=== PATIENT | male | born 1985 | race Caucasian/White ===

== ENCOUNTER 2020-10-27 09:12 | Outpatient (CLI) | payer OTHER, SELFPAY | END 2020-10-27 09:13 | disposition home or self-care (01) | LOC: ANHBWCAUD 09:13 | DX: H90.3 Sensorineural hearing loss, bilateral (principal) | CPT/HCPCS: 92557; 92567 ==

== ENCOUNTER 2024-05-13 09:04 | Outpatient (CLI) | payer MEDICAID, SELFPAY ==
--- OUTSIDE RECORDS SUMMARY | 2024-05-14 22:13 | XMS_ITS | Encounter Summary ---
Author Organization [facility] Address [address] [place] [address] Phone Care Team Providers Care Sleeve Presser Operator Name Role Phone Felisha Yu MD Primary Care Provider [phone] Jose Allan MD Primary Care Provider [phone] Provider, None Primary Care Provider Unavailabl e Encounter Details Date Type Department Care Team (Late st Contact Info) Description 02/21/2022 Lab Requisition [facility] Laboratory Services 1 [place] [address] Medhat Briggs MD [address] [place] [address] [address] [place] [address] Encounter for screening for COVID-19 Social History Tobacco Use Types Packs/Day Years Used Date Smoking Tobacco: Never Smokeless Tobacco: Never Alcohol Use Standard Drinks/Week Comments No 0 (1 standard drink = 0.6 oz pur e alcohol) Sex and Gender Information Value Date Recorded Sex Assigned at Not on file Legal Sex Male 9:44 AM CDT Gender Identity Not on file Sexual Orientation Not on file Occupation Industry Job Start Date Job End Date disability Not on file Not on file Not on file documented as of this encounter Plan of Treatment Not on file documented as of this encounter Procedures Procedure Name Priority Date/Time Associated Diagnosis Comments SARS-COV-2 BY MOLECULAR Routine 02/21/2022 8:05 AM CDT Encounter for screening for COVID-19 documented in this encounter Results * SARS-COV-2 BY MOLECULAR (02/21/2022 8:05 AM CDT) SARSCOV2 NOT DETECTED (Referen ce Range for this test is Not Detected ) [facility] THERMOFISHER FAST DX 02/22/2022 12:00 AM CDT [facility] Comment:This test was perfor med by a RT-PCR method. Other Non-Phlebotomy Collection / Unknown 02/21/2022 8:05 AM CDT 02/21/2022 11:00 AM CDT Narrative [facility] - 02/22/2022 12:00 AM CDT Authorized Fact Sheets about this test for providers and patients are available at: https://www.fda.gov/medical-devices/dlnvnxlxs-tnfebjgigi-zspiwss-devices/emergen -us e-authorizations us Medhat Briggs MD MICROBIOLOGY - GENERAL ORDERAB LES Final Result [facility] [address] [place] [address], documented in this encounter Visit Diagnoses Diagnosis Encounter for screening for COVID-19 documented in this encounter Additional Health Concerns Infection Onset Date Last Indicated Resolved Time COVID - 19 11/01/2021 02/28/2022 03/10/2022 12:1 6 AM GETTER FILLER COVID - 19 04/25/2022 07/04/2022 07/14/2022 12:1 6 AM CDT documented as of this encounter Care Teams Sleeve Presser Operator Relationship Specialty Start Date End Date Felisha Yu MD PCP - General Family Medicine 07/20/15 04/21/22 Jose Allan MD PCP - General Family Medicine 04/22/22 07/14/23 Provider, None [place] PCP - General 03/08/24 documented as of this encounter
--- OUTSIDE RECORDS SUMMARY | 2024-05-14 22:13 | XMS_ITS | Encounter Summary ---
Author Organization [facility] Address [address] [place] [address] Phone Care Team Providers Care Medical Billing Service Name Role Phone Jose Allan MD Primary Care Provider [phone] Provider, None Primary Care Provider Unavailabl e Encounter Details Date Type Department Care Team (Late st Contact Info) Description 05/17/2022 Lab Requisition [facility] Laboratory Services 1 [place] [address] Medhat Briggs MD [address] [place] [address] [facility] [address] [place] [address] Encounter for screening for COVID-19 Social History [...] Associated Diagnosis Comments SARS-COV-2 BY MOLECULAR Routine 05/17/2022 8:05 AM CULTURIST Encounter for screening for COVID-19 documented in this encounter Results * SARS-COV-2 BY MOLECULAR (05/17/2022 8:05 AM CULTURIST) SARSCOV2 NOT DETECTED (Referen ce Range for this test is Not Detected ) [facility] THERMOFISHER FAST DX 05/17/2022 5:12 PM CULTURIST [facility] Comment:This test was perfor med by a RT-PCR method. Other Non-Phlebotomy Collection / Unknown 05/17/2022 8:05 AM CULTURIST 05/17/2022 9:50 AM CULTURIST Narrative [facility] - 05/17/2022 5:12 PM CULTURIST Authorized Fact Sheets about this test for providers and patients are available at: https://www.fda.gov/medical-devices/hfwiiidra-cwnamzfgke-ulyhhek-devices/emergen -us e-authorizations us Medhat Briggs MD MICROBIOLOGY - GENERAL ORDERAB LES Final Result [facility] [address] [place] [address], documented in this encounter Visit Diagnoses Diagnosis Encounter for screening for COVID-19 documented in this encounter Additional Health Concerns Infection Onset Date Last Indicated Resolved Time COVID - 19 04/25/2022 07/04/2022 07/14/2022 12:1 6 AM CDT documented as of this encounter Care Teams Medical Billing Service Relationship Specialty Start Date End Date Jose Allan MD PCP - General Family Medicine 04/22/22 07/14/23 Provider, None [place] PCP - General 03/08/24 documented as of this encounter
--- OUTSIDE RECORDS SUMMARY | 2024-05-14 22:13 | XMS_ITS | Encounter Summary ---
Author Organization [facility] Address [address] [place] [address] Phone Care Team Providers Care Supply Chain Associate Name Role Phone Jose Allan MD Primary Care Provider [phone] Provider, None Primary Care Provider Unavailabl e Encounter Details Date Type Department Care Team (Late st Contact Info) Description 05/02/2022 Lab Requisition [facility] Laboratory Services 1 [place] [address] Medhat Briggs MD [address] [place] [address] [facility] [address] [place] [address] Encounter for screening for COVID-19 Social History [...] Associated Diagnosis Comments SARS-COV-2 BY MOLECULAR Routine 05/02/2022 7:43 AM SUGAR BOILER Encounter for screening for COVID-19 documented in this encounter Results * SARS-COV-2 BY MOLECULAR (05/02/2022 7:43 AM SUGAR BOILER) SARSCOV2 NOT DETECTED (Referen ce Range for this test is Not Detected ) [facility] THERMOFISHER FAST DX 05/02/2022 10:53 PM SUGAR BOILER [facility] Comment:This test was perfor med by a RT-PCR method. Other Non-Phlebotomy Collection / Unknown 05/02/2022 7:43 AM SUGAR BOILER 05/02/2022 10:31 AM SUGAR BOILER Narrative [facility] - 05/02/2022 10:53 PM SUGAR BOILER Authorized Fact Sheets about this test for providers and patients are available at: https://www.fda.gov/medical-devices/ytihkihci-tkthcdqyep-wnatpfv-devices/emergen -us e-authorizations us Medhat Briggs MD MICROBIOLOGY - GENERAL ORDERAB LES Final Result [facility] [address] [place] [address], documented in this encounter Visit Diagnoses Diagnosis Encounter for screening for COVID-19 documented in this encounter Additional Health Concerns Infection Onset Date Last Indicated Resolved Time COVID - 19 04/25/2022 07/04/2022 07/14/2022 12:1 6 AM CDT documented as of this encounter Care Teams Supply Chain Associate Relationship Specialty Start Date End Date Jose Allan MD PCP - General Family Medicine 04/22/22 07/14/23 Provider, None [place] PCP - General 03/08/24 documented as of this encounter
--- OUTSIDE RECORDS SUMMARY | 2024-05-14 22:13 | XMS_ITS | Encounter Summary ---
Author Organization [facility] Address [address] [place] [address] Phone Care Team Providers Care Microfilm Operator Name Role Phone Provider, None Primary Care Provider Unavailabl e Encounter Details Date Type Department Care Team (Late st Contact Info) Description 02/05/2024 Lab Requisition [facility] Laboratory Services 1 [place] [id number] Eli Moon MD [address] [place] [address] Other group home (current) drug therapy; Hypothyroidism, unspecified Social History Tobacco Use Types Packs/Day Years [...] as of this encounter Plan of Treatment Scheduled Orders Name Type Priority Associated Diagnoses Orde r Schedule THYROID STIMULATING HORMONE (TSH) Lab Routine Other group home (current) drug therapy Hypothyroidism, unspecified Ordered: 02/05/2024 VALPROIC ACID (DEPAKENE) Lab Routine Other extermination supervisor (current) drug therapy Hypothyroidism, unspecified Ordered: 02/05/2024 documented as of this encounter Visit Diagnoses Diagnosis Other extermination supervisor (current) drug therapy Hypothyroidism, unspecified documented in this encounter Care Teams Microfilm Operator Relationship Specialty Start Date End Date Provider, None [place] PCP - General 03/08/24 documented as of this encounter
--- OUTSIDE RECORDS SUMMARY | 2024-05-14 22:13 | XMS_ITS | Encounter Summary ---
Author Organization [facility] Address [address] [place] [address] Phone Care Team Providers Care Lyric Writer Name Role Phone Jose Allan MD Primary Care Provider [phone] Provider, None Primary Care Provider Unavailabl e Encounter Details Date Type Department Care Team (Late st Contact Info) Description 06/27/2022 Lab Requisition [facility] Laboratory Services 1 [place] [address] Medhat Briggs MD [address] [place] [address] [facility] [address] [place] [address] Encounter for screening for COVID-19 Social History [...] Associated Diagnosis Comments SARS-COV-2 BY MOLECULAR Routine 06/27/2022 7:35 AM DIETITIAN TEACHING Encounter for screening for COVID-19 documented in this encounter Results * SARS-COV-2 BY MOLECULAR (06/27/2022 7:35 AM DIETITIAN TEACHING) SARSCOV2 NOT DETECTED (Referen ce Range for this test is Not Detected ) [facility] THERMOFISHER FAST DX 06/27/2022 7:37 PM DIETITIAN TEACHING [facility] Comment:This test was perfor med by a RT-PCR method. Other Non-Phlebotomy Collection / Unknown 06/27/2022 7:35 AM DIETITIAN TEACHING 06/27/2022 10:12 AM DIETITIAN TEACHING Narrative [facility] - 06/27/2022 7:37 PM DIETITIAN TEACHING Authorized Fact Sheets about this test for providers and patients are available at: https://www.fda.gov/medical-devices/emfvedova-jycmpofban-icrwdnm-devices/emergen -us e-authorizations us Medhat Briggs MD MICROBIOLOGY - GENERAL ORDERAB LES Final Result [facility] [address] [place] [address], documented in this encounter Visit Diagnoses Diagnosis Encounter for screening for COVID-19 documented in this encounter Additional Health Concerns Infection Onset Date Last Indicated Resolved Time COVID - 19 04/25/2022 07/04/2022 07/14/2022 12:1 6 AM CDT documented as of this encounter Care Teams Lyric Writer Relationship Specialty Start Date End Date Jose Allan MD PCP - General Family Medicine 04/22/22 07/14/23 Provider, None [place] PCP - General 03/08/24 documented as of this encounter
--- OUTSIDE RECORDS SUMMARY | 2024-05-14 22:13 | XMS_ITS | Encounter Summary ---
Author Organization [facility] Address [address] [place] [address] Phone Care Team Providers Care Qc Manager Name Role Phone Felisha Yu MD Primary Care Provider [phone] Jose Allan MD Primary Care Provider Provider, None Primary Care Provider Unavailabl e Encounter Details Date Type Department Care Team (Late st Contact Info) Description 02/07/2022 Lab Requisition [facility] Laboratory Services 1 [place] [address] Medhat Briggs MD [address] [place] [address] [address] [place] [address] Encounter for screening for COVID-19 Social History [...] Associated Diagnosis Comments SARS-COV-2 BY MOLECULAR Routine 02/07/2022 7:53 AM CDT Encounter for screening for COVID-19 documented in this encounter Results * SARS-COV-2 BY MOLECULAR (02/07/2022 7:53 AM CDT) SARSCOV2 NOT DETECTED (Referen ce Range for this test is Not Detected ) [facility] THERMOFISHER FAST DX 02/08/2022 12:39 AM CDT [facility] Comment:This test was perfor med by a RT-PCR method. Other Non-Phlebotomy Collection / Unknown 02/07/2022 7:53 AM CDT 02/07/2022 11:52 AM CDT Narrative [facility] - 02/08/2022 12:39 AM CDT Authorized Fact Sheets about this test for providers and patients are available at: https://www.fda.gov/medical-devices/cdovcretu-qxcarxgnov-auxfaxd-devices/emergen -us e-authorizations us Medhat Briggs MD MICROBIOLOGY - GENERAL ORDERAB LES Final Result [facility] [address] [place] [address], documented in this encounter Visit Diagnoses Diagnosis Encounter for screening for COVID-19 documented in this encounter Additional Health Concerns Infection Onset Date Last Indicated Resolved Time COVID - 19 11/01/2021 02/28/2022 03/10/2022 12:1 6 AM SUBSTATION DESIGNER COVID - 19 04/25/2022 07/04/2022 07/14/2022 12:1 6 AM CDT documented as of this encounter Care Teams Qc Manager Relationship Specialty Start Date End Date Felisha Yu MD PCP - General Family Medicine 07/20/15 04/21/22 Jose Allan MD PCP - General Family Medicine 04/22/22 07/14/23 Provider, None [place] PCP - General 03/08/24 documented as of this encounter
--- OUTSIDE RECORDS SUMMARY | 2024-05-14 22:13 | XMS_ITS | Encounter Summary ---
Author Organization [facility] Address [address] [place] [address] Phone Care Team Providers Care Child Care Leader Name Role Phone Jose Allan MD Primary Care Provider [phone] Provider, None Primary Care Provider Unavailabl e Encounter Details Date Type Department Care Team (Late st Contact Info) Description 05/30/2022 Lab Requisition [facility] Laboratory Services 1 [place] [address] Medhat Briggs MD [address] [place] [address] [facility] [address] [place] [address] Encounter for screening for COVID-19 Social History [...] Associated Diagnosis Comments SARS-COV-2 BY MOLECULAR Routine 05/30/2022 7:57 AM PLASTER MODEL AND MOLD MAKER Encounter for screening for COVID-19 documented in this encounter Results * SARS-COV-2 BY MOLECULAR (05/30/2022 7:57 AM PLASTER MODEL AND MOLD MAKER) SARSCOV2 NOT DETECTED (Referen ce Range for this test is Not Detected ) [facility] THERMOFISHER FAST DX 05/30/2022 11:05 PM PLASTER MODEL AND MOLD MAKER [facility] Comment:This test was perfor med by a RT-PCR method. Other Non-Phlebotomy Collection / Unknown 05/30/2022 7:57 AM PLASTER MODEL AND MOLD MAKER 05/30/2022 10:13 AM PLASTER MODEL AND MOLD MAKER Narrative [facility] - 05/30/2022 11:05 PM PLASTER MODEL AND MOLD MAKER Authorized Fact Sheets about this test for providers and patients are available at: https://www.fda.gov/medical-devices/elmcuavru-axygkhibve-ldoskjl-devices/emergen -us e-authorizations us Medhat Briggs MD MICROBIOLOGY - GENERAL ORDERAB LES Final Result [facility] [address] [place] [address], documented in this encounter Visit Diagnoses Diagnosis Encounter for screening for COVID-19 documented in this encounter Additional Health Concerns Infection Onset Date Last Indicated Resolved Time COVID - 19 04/25/2022 07/04/2022 07/14/2022 12:1 6 AM CDT documented as of this encounter Care Teams Child Care Leader Relationship Specialty Start Date End Date Jose Allan MD PCP - General Family Medicine 04/22/22 07/14/23 Provider, None [place] PCP - General 03/08/24 documented as of this encounter
--- OUTSIDE RECORDS SUMMARY | 2024-05-14 22:13 | XMS_ITS | Encounter Summary ---
Author Organization [facility] Address [address] [place] [address] Phone Care Team Providers Care Pea Viner Mechanic Name Role Phone Provider, None Primary Care Provider Unavailabl e Encounter Details Date Type Department Care Team (Late st Contact Info) Description 02/05/2024 Lab Requisition [facility] Laboratory Services 1 [place] [id number] Eli Moon MD [address] [facility] [place] [address] Other detention (current) drug therapy; Hypothyroidism, unspecified Social History [...] on file documented as of this encounter Progress Notes * Eli Moon MD - 02/05/2024 8:47 AM CDT Please fax notes and lab work to Jossy wong. Valproic acid is low. Please check with neurologist to see if we need to increase the dose. * Eli Moon MD - 02/05/2024 8:47 AM CDT Please fax the test results and comment to Jossy wong The thyroid stimulating hormone is in the normal range. documented in this encounter Plan of Treatment Not on file documented as of this encounter Procedures Procedure Name Priority Date/Time Associated Diagnosis Comments VALPROIC ACID (DEPAKENE) Routine 02/05/2024 7:57 AM CDT Other intermediate teacher (current) drug therapy Hypothyroidism, unspecified THYROID STIMULATING HORMONE (TSH) Routine 02/05/2024 7:57 AM CDT Other detention (current) drug therapy Hypothyroidism, unspecified documented in this encounter Results * (ABNORMAL) VALPROIC ACID (DEPAKENE) (02/05/2024 7:57 AM CDT) VALPROIC ACID TOTAL 37(L) 50 - 100 mcg/mL 02/05/2024 10:07 AM CDT [facility] Blood Venipuncture / Unknown 02/05/2024 7:57 AM CDT 02/05/2024 8:47 AM CDT us Eli Moon MD CHEMISTRY ORDERABLES Final Result Performing Organization Address City/[facility]/ZIP Co de Phone Number [facility] [address] [place] [address] * THYROID STIMULATING HORMONE (TSH) (02/05/2024 7:57 AM CDT) TSH 2.322 0.300 - 5.000 mIU/L 02/05/2024 10:28 AM CDT [facility] Blood Venipuncture / Unknown 02/05/2024 7:57 AM CDT 02/05/2024 8:47 AM CDT us Eli Moon MD CHEMISTRY ORDERABLES Final Result [facility] #[address] [place] [address] documented in this encounter Visit Diagnoses Diagnosis Other intermediate teacher (current) drug therapy Hypothyroidism, unspecified documented in this encounter Care Teams Pea Viner Mechanic Relationship Specialty Start Date End Date Provider, Gisela COPPOLA PCP - General 03/08/24 documented as of this encounter
--- OUTSIDE RECORDS SUMMARY | 2024-05-14 22:13 | XMS_ITS | Encounter Summary ---
Author Organization [facility] Address [address] [place] [address] Phone Care Team Providers Care Laboratory Phlebotomist Name Role Phone Felisha Yu MD Primary Care Provider [phone] Jose Allan MD Primary Care Provider [phone] Provider, None Primary Care Provider Unavailabl e Encounter Details Date Type Department Care Team (Late st Contact Info) Description 02/14/2022 Lab Requisition [facility] Laboratory Services 1 [place] [address] Medhat Briggs MD [address] [place] [address] [address] [place] [address] Encounter for screening for COVID-19 Social History [...] Associated Diagnosis Comments SARS-COV-2 BY MOLECULAR Routine 02/14/2022 8:04 AM CDT Encounter for screening for COVID-19 documented in this encounter Results * SARS-COV-2 BY MOLECULAR (02/14/2022 8:04 AM CDT) SARSCOV2 NOT DETECTED (Referen ce Range for this test is Not Detected ) [facility] THERMOFISHER FAST DX 02/15/2022 12:21 AM CDT [facility] Comment:This test was perfor med by a RT-PCR method. Other Non-Phlebotomy Collection / Unknown 02/14/2022 8:04 AM CDT 02/14/2022 12:04 PM CDT Narrative [facility] - 02/15/2022 12:21 AM CDT Authorized Fact Sheets about this test for providers and patients are available at: https://www.fda.gov/medical-devices/xkdzcjktj-kkaadwcczv-wtpfagz-devices/emergen -us e-authorizations us Medhat Briggs MD MICROBIOLOGY - GENERAL ORDERAB LES Final Result [facility] [address] [place] [address], documented in this encounter Visit Diagnoses Diagnosis Encounter for screening for COVID-19 documented in this encounter Additional Health Concerns Infection Onset Date Last Indicated Resolved Time COVID - 19 11/01/2021 02/28/2022 03/10/2022 12:1 6 AM MARSHMALLOW MAKER COVID - 19 04/25/2022 07/04/2022 07/14/2022 12:1 6 AM CDT documented as of this encounter Care Teams Laboratory Phlebotomist Relationship Specialty Start Date End Date Felisha Yu MD PCP - General Family Medicine 07/20/15 04/21/22 Jose Allan MD PCP - General Family Medicine 04/22/22 07/14/23 Provider, None [place] PCP - General 03/08/24 documented as of this encounter
--- OUTSIDE RECORDS SUMMARY | 2024-05-14 22:13 | XMS_ITS | Encounter Summary ---
Author Organization [facility] Address [address] [place] [address] Phone Care Team Providers Care Nurse Sexual Assault Name Role Phone Jose Allan MD Primary Care Provider [phone] Provider, None Primary Care Provider Unavailabl e Encounter Details Date Type Department Care Team (Late st Contact Info) Description 04/25/2022 Lab Requisition [facility] Laboratory Services 1 [place] [address] Medhat Briggs MD [address] [place] [address] [facility] [address] [place] [address] Encounter for screening for COVID-19 Social History [...] Associated Diagnosis Comments SARS-COV-2 BY MOLECULAR Routine 04/25/2022 7:37 AM ASSURANCE AUDITOR Encounter for screening for COVID-19 documented in this encounter Results * SARS-COV-2 BY MOLECULAR (04/25/2022 7:37 AM ASSURANCE AUDITOR) SARSCOV2 NOT DETECTED (Referen ce Range for this test is Not Detected ) [facility] THERMOFISHER FAST DX 04/25/2022 9:20 PM ASSURANCE AUDITOR [facility] Comment:This test was perfor med by a RT-PCR method. Other COVID 19 Collection / Unknown 04/25/2022 7:37 AM ASSURANCE AUDITOR 04/25/2022 9:45 AM ASSURANCE AUDITOR Narrative [facility] - 04/25/2022 9:20 PM ASSURANCE AUDITOR Authorized Fact Sheets about this test for providers and patients are available at: https://www.fda.gov/medical-devices/blabxxjuu-swlbmfnwmy-gqifunq-devices/emergen -us e-authorizations us Medhat Briggs MD MICROBIOLOGY - GENERAL ORDERAB LES Final Result [facility] [address] [place] [address], documented in this encounter Visit Diagnoses Diagnosis Encounter for screening for COVID-19 documented in this encounter Additional Health Concerns Infection Onset Date Last Indicated Resolved Time COVID - 19 04/25/2022 07/04/2022 07/14/2022 12:1 6 AM CDT documented as of this encounter Care Teams Nurse Sexual Assault Relationship Specialty Start Date End Date Jose Allan MD PCP - General Family Medicine 04/22/22 07/14/23 Provider, None [place] PCP - General 03/08/24 documented as of this encounter
--- OUTSIDE RECORDS SUMMARY | 2024-05-14 22:13 | XMS_ITS | Clinical Summary ---
Author Organization [facility] Address [address] [place] [id number] Care Team Providers Care Tube Worker Name Role Phone Provider, None Primary Care Provider Unavailabl e Allergies No known active allergies Medications amLODIPine (NORVASC) 10 MG Tablet Take 10 mg by mouth every morning. 7 Active benztropine (COGENTIN) 0.5 MG Tablet Take 0.5 mg by mouth 2 times daily. 3 Active Cholecalciferol (VITAMIN D3) 1000 UNIT Tablet Take 1 Tab by mouth 2 times daily. 7 Active levothyroxine (SYNTHROID) 25 MCG Tablet Take 25 mcg by mouth every morning. 7 Active sertraline (ZOLOFT) 50 MG Tablet Take 50 mg by mouth every morning. 7 Active cloZAPine (CLOZARIL) 100 MG Tablet Take 100 mg by mouth daily. 1 tablet AM and 2 tablets PM Active divalproex (DEPAKOTE) 250 MG Tablet Delayed Response Take 250 mg by mouth 2 times daily. Active divalproex (DEPAKOTE) 500 MG Tablet Delayed Response Take 500 mg by mouth every evening. Active loratadine (CLARITIN) 10 MG Tablet Take 10 mg by mouth nightly. Active mirtazapine (REMERON) 15 MG Tablet Take 7.5 mg by mouth nightly. Active acetaminophen (PAIN & FEVER) 325 MG Tablet Take 650 mg by mouth. 3 Active aluminum & magnesium hydroxide (MAG-AL) 200-200 MG/5ML Suspension Take 30 mL by mouth. 5 Active hydrOXYzine (ATARAX) 50 MG Tablet Take 50 mg by mouth. 3 Active lithium 150 MG Capsule 4 Active neomycin-bacitr acin-polymyxin (NEOSPORIN) 400-5-5000 Ointment Triple Antibiotic 3.5 mg-400 unit-5,000 unit/gram topical ointment Active Active Problems Problem Noted Date Diagnosed Date Abrasions of multiple sites 04/10/2023 Allergic rhinitis 08/09/2021 Essential (primary) hypertension 10/22/2018 Hypothyroidism 10/22/2018 Other recurrent depressive disorders 10/22/2018 Extrapyramidal and movement disorder 10/22/2018 Manic episode, unspecified 10/22/2018 Vitamin D deficiency 10/22/2018 Mild intellectual disability 10/22/2018 Allergy 10/22/2018 [place] (generalized anxiety disorder) 10/22/2018 ASD (atrial septal defect) 10/22/2018 Impacted cerumen, bilateral 04/10/2018 Chronic eczematous otitis externa of both ears 0 06/06/2017 Acquired stenosis of both external ear canals Schizoaffective disorder 08/01/2012 Resolved Problems Problem Noted Date Diagnosed Date Resolved Date Acute otitis media of left e ar with perforated tympanic membrane 06/06/2017 06/06/2017 Tympanic membrane central perforation, left 06/06/2017 06/06/2017 Encounters Date Type Department Care Team Description 04/29/2024 Telephone [facility] Primary [facility] [address] [place] [address] Eli Moon MD 04/29/2024 Nursing Facility [facility] Primary [facility] [address] [place] [address] Eli Moon MD Mild intellectual disability (Primary Dx); Schizoaffective disorder, unspecified type (HCC); [place] (generalized anxiety disorder) 04/29/2024 Lab Requisition [facility] [address] [place] [address] Provider, Not On File 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; Major depressive disorder, recurrent, mild (HCC); Schizophrenia, unspecified (HCC) 04/01/2024 Lab Requisition [facility] 1 [facility] [place] [address] Provider, Not On File 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; Major depressive disorder, recurrent, mild (HCC); Schizophrenia, unspecified (HCC); Hormone replacement therapy; Encounter for general adult medical examination without abnormal findings 03/11/2024 Telephone [facility] - [place] [address] [place] [address] Eli Moon MD Results 03/11/2024 Lab Requisition [facility] [address] [place] [id number] Eli Moon MD 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; Hypothyroidism, unspecified 03/04/2024 Lab Requisition [facility] [address] [place] [address] Eli Moon MD Other [facility] (current) drug therapy; Major depressive disorder, recurrent, mild (HCC); Schizophrenia, unspecified (HCC) from Last 3 Months Immunizations Immunization Administration Dates Next Due Covid-19, Mrna, Lnp-s, Pf, 30 Mcg/0.3 Ml Dose (P fizer) 02/24/2021 Influenza Vaccine greater than 3 yrs 02/20/2019 TDAP Vaccine 07/15/2018 Social History Tobacco Use Types Packs/Day Years Used Date Smoking Tobacco: Never Smokeless Tobacco: Never Tobacco Cessation:Counseling Given: Not Answered Alcohol Use Standard Drinks/Week Comments No 0 (1 standard drink = 0.6 oz pur e alcohol) Sex and Gender Information Value Date Recorded Sex Assigned at Not on file Legal Sex Male 9:44 AM CDT Gender Identity Not on file Sexual Orientation Not on file Occupation Industry Job Start Date Job End Date disability Not on file Not on file Not on file Last Filed Vital Signs Vital Sign Reading Time Taken Comments Blood Pressure 138/84 04/29/2024 1:56 PM CASH TELLER Pulse 115 04/29/2024 1:56 PM CASH TELLER Temperature 37.3 ??C (99.2 ??F) 04/29/2024 1:56 PM CS T Respiratory Rate 18 04/29/2024 1:56 PM CASH TELLER Oxygen Saturation 99% 04/29/2024 1:56 PM CASH TELLER Inhaled Oxygen Concentration - - Weight 68 kg (150 lb) 04/29/2024 1:56 PM CASH TELLER Height 175.3 cm (5' 9 ) 04/29/2024 1:56 PM CASH TELLER Body Mass Index 22.15 04/29/2024 1:56 PM CASH TELLER Plan of Treatment Health Maintenance Due Date Last Done Comments Hepatitis C Virus (HCV) Screening 1987 Hepatitis B Immunization (1 of 3 - 19+ 3-dose series) 08/17/2006 Influenza Immunization (#1) 2023 02/20/2019 SARS-COV-2 Immunization ( season) 2023 02/24/2021, 06/24/2020, 06/02/2020 Td Immunization Every 10 Years (Adults With 1 Tdap) 07/15/2028 07/15/2018 Respiratory Syncytial Virus (RSV) Immunization (Adult) (1 - 1-dose 75+ series) 08/17/2062 DTaP/Tdap/Td Immunization Discontinued 07/15/2018 Meningococcal Immunization (ACWY) Aged Out No longer eligible based on patient's age to complete this topic Pneumococcal Immunization Combined Aged Out No longer eligible based on patient's age to complete this topic Rotavirus Immunization Aged Out No lo nger eligible based on patient's age to complete this topic Procedures Procedure Name Priority Date/Time Associated Diagnosis Comments CBC WITH AUTO DIFFERENTIAL Routine 04/29/2024 6:34 AM CASH TELLER 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 Major depressive disorder, recurrent, mild (HCC) Schizophrenia, unspecified (HCC) COMPLETE BLOOD COUNT (CBC) WITH DIFF Routine 04/29/2024 6:34 AM CASH TELLER Other [facility] (current) drug therapy Major depressive disorder, recurrent, mild (HCC) Schizophrenia, unspecified (HCC) CBC WITH AUTO DIFFERENTIAL Routine 04/01/2024 5:55 AM CASH TELLER 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 Major depressive disorder, recurrent, mild (HCC) Schizophrenia, unspecified (HCC) COMPLETE BLOOD COUNT (CBC) WITH DIFF Routine 04/01/2024 5:55 AM CASH TELLER Other [facility] (current) drug therapy Major depressive disorder, recurrent, mild (HCC) Schizophrenia, unspecified (HCC) LIPID PANEL Routine 03/11/2024 7:03 AM CASH TELLER Other [facility] (current) drug therapy Hypothyroidism, unspecified CMP (COMPREHENSIVE METABOLIC PANEL) Routine 03/11/2024 7:03 AM CASH TELLER 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 Hypothyroidism, unspecified CBC WITH AUTO DIFFERENTIAL Routine 03/04/2024 6:15 AM CASH TELLER 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 WBC 5.44 4.00 - 12.00 10(3)/mcL 04/29/2024 8:13 AM [facility] RBC 4.38(L) 4.40 - 5.80 10(6)/mcL 04/29/2024 8:13 AM [facility] HEMOGLOBIN (HGB) 13.4 13.0 - 16.5 g/dL 04/29/2024 8:13 AM [facility] HEMATOCRIT (HCT) 39.9 38.0 - 50.0 % 04/29/2024 8:13 AM [facility] MCV 91.1 82.0 - 96.0 fL 04/29/2024 8:13 AM [facility] MCH 30.6 26.0 - 32.0 pg 04/29/2024 8:13 AM [facility] MCHC 33.6 31.0 - 36.0 g/dL 04/29/2024 8:13 AM [facility] PLATELET COUNT 181 140 - 440 10(3)/[facility] 04/29/2024 8:13 AM [facility] RDW 12.1 11.8 - 15.5 % 04/29/2024 8:13 AM [facility] MPV 9.5 8.0 - 12.6 fL 04/29/2024 8:13 AM [facility] NEUTROPHILS 54.6 40.0 - 68.0 % 04/29/2024 8:13 AM [facility] LYMPHOCYTES 17.8(L) 19.0 - 49.0 % 04/29/2024 8:13 AM [facility] MONOCYTES 16.9(H) 3.0 - 13.0 % 04/29/2024 8:13 AM [facility] EOSINOPHILS 10.3(H) 0.0 - 8.0 % 04/29/2024 8:13 AM [facility] BASOPHILS 0.4 0.0 - 1.0 % 04/29/2024 8:13 AM [facility] ABSOLUTE NEUTROPHILS 2.97 1.40 - 5.30 10(3)/[facility] 04/29/2024 8:13 AM [facility] ABSOLUTE LYMPHOCYTES 0.97 0.90 - 3.30 10(3)/[facility] 04/29/2024 8:13 AM [facility] ABSOLUTE MONOCYTES 0.92(H) 0.10 - 0.90 10(3)/[facility] 04/29/2024 8:13 AM [facility] ABSOLUTE EOSINOPHIL 0.56(H) 0.00 - 0.50 10(3)/[facility] 04/29/2024 8:13 AM [facility] ABSOLUTE BASOPHILS 0.02 0.00 - 0.10 10(3)/[facility] 04/29/2024 8:13 AM [facility] NRBC PER 100 WBC 0 04/29/19 8:13 AM [facility] Blood Venipuncture / Unknown 04/29/2024 6:34 AM CASH TELLER 04/29/2024 7:59 AM CASH TELLER us Not On File Provider HEMATOLOGY ORDERABLES Final Result Performing Organization Address [facility] Co de Phone Number [facility] [address] [place] [address] * LIPID PANEL (03/11/2024 7:03 AM CASH TELLER) CHOLESTEROL 177 <200 mg/dL 03/11/2024 9:02 AM CASH TELLER [facility] TRIGLYCERIDES 93 <150 mg/dL 03/11/2024 9:02 AM CASH TELLER [facility] HDL CHOLESTEROL 74 >40 mg/dL 9:02 AM CASH TELLER [facility] LDL 84 <130 mg/dL 03/11/2024 9:02 AM CASH TELLER [facility] VLDL 19 10 - 50 mg/dL 03/11/2024 9:02 AM CASH TELLER [facility] CHOL/HDL RATIO 2.4 0.0 - 4.4 03/11/2024 9:02 AM CASH TELLER [facility] NON-HDL CHOLESTEROL 103 <130 mg/dL 03/11/2024 9:02 AM [facility] Blood Venipuncture / Unknown 03/11/2024 7:03 AM CASH TELLER 03/11/2024 8:16 AM CASH TELLER us Eli Moon MD CHEMISTRY ORDERABLES Final Result Performing Organization Address [facility] Co de Phone Number [facility] [place] [address] * (ABNORMAL) CMP (COMPREHENSIVE METABOLIC PANEL) (03/11/2024 7:03 AM CASH TELLER) SODIUM 144 136 - 145 mmol/L 03/11/2024 9:02 AM CASH TELLER [facility] POTASSIUM 4.0 3.5 - 5.1 mmol/L 03/11/2024 9:02 AM [facility] CHLORIDE 110(H) 98 - 107 mmol/L 03/11/2024 9:02 AM [facility] CO2, VENOUS 22 22 - 30 mmol/L 03/11/2024 9:02 AM [facility] ANION GAP 16.0 <18.0 mmol/L 03/11/2024 9:02 AM [facility] GLUCOSE 74 70 - 99 mg/dL 03/11/2024 9:02 AM [facility] BUN 16 9 - 21 mg/dL 03/11/2024 9:02 AM [facility] CREATININE, BLOOD 0.78 0.70 - 1.30 mg/dL 03/11/2024 9:02 AM [facility] BUN/CREATININE RATIO 21(H) 12 - 20 ratio 03/11/2024 9:02 AM [facility] TOTAL PROTEIN 6.6 6.3 - 8.2 g/dL 03/11/2024 9:02 AM [facility] ALBUMIN 4.4 3.5 - 5.0 g/dL 03/11/2024 9:02 AM [facility] A/G RATIO 2.0 1.0 - 2.2 03/11/2024 9:02 AM [facility] CALCIUM 9.4 8.7 - 10.5 mg/dL 03/11/2024 9:02 AM [facility] T BILI 0.6 0.2 - 1.2 mg/dL 03/11/2024 9:02 AM [facility] SGOT (AST) 19 5 - 34 U/L 03/11/2024 9:02 AM [facility] SGPT (ALT) 19 0 - 55 U/L 03/11/2024 9:02 AM [facility] ALKALINE PHOSPHATASE 37(L) 40 - 150 U/L 03/11/2024 9:02 AM [facility] GFR, ESTIMATED >60 >=60 03/11/2024 9:02 AM [facility] Comment: Creatinine Clearance is the preferred criteria for selecting drug dose adjustments in renally impaired patients. ??The GFR is provided as additional pertinent clinical information. GFR is reported in mL/min/1.73 sq m. Calculation based on the Chronic Kidney Disease Epidemiology Collaboration (CKD- EPI) equation refit without adjustment for race. GFR, EST. >60 >=60 024 9:02 AM CASH TELLER [facility] GFR, EST. NONAFRICAN >60 >=60 03/11/2024 9:02 AM CASH TELLER [facility] Blood Venipuncture / Unknown 03/11/2024 7:03 AM CASH TELLER 03/11/2024 8:16 AM CASH TELLER us Eli Moon MD CHEMISTRY ORDERABLES Final Result [facility] [address] [place] [address] from Last 3 Months Care Teams Tube Worker Relationship Specialty Start Date End Date Provider, None [place] PCP - General 03/08/24
--- OUTSIDE RECORDS SUMMARY | 2024-05-14 22:13 | XMS_ITS | Clinical Summary ---
Author Organization [facility] Address [address] [place] [address] Care Team Providers Care Engine Turner Name Role Phone Darwin Quintanilla MD Primary Care Provider Source Comments [facility],non-owned Affiliates and Associated Physician Practices is amultiple site organization consisting of ambulatory clinics and hospital sitesin [place], [place], [place] and [place]. This disclosure is being madepursuant to the Care Everywhere program and may not contain all information available regarding this patient. Last updated 18.[facility] Allergies No known active allergies Medications * Be aware that medications may not be up to date on this document. Alwaysverify current medications with the patient. Medication Sig Dispensed Refills Start Date End Date Status acetaminophen (TYLENOL) 325 MG tablet Take 2 Tabs by mouth every 4 hours as needed for Fever or Pain. Maximum allowable Acetaminophen amount = 4 Grams (4000 mg) / 24 hours. 08/07/2012 Active hydrOXYzine hcl (ATARAX) 50 MG tabletIndications:An xiety Neurosis (Inactive) Take 1 Tab by mouth 3 times daily as needed. Indications: Anxiety Neurosis 30 Tab 3 08/07/2012 Active benztropine (COGENTIN) 0.5 MG tabletIndications:Dr ug-Induced Extrapyramidal Reaction Take 1 Tab by mouth 2 times daily. Indications: Extrapyramidal Reaction caused by Medications 60 Tab 3 08/07/2012 Active cloZAPine (CLOZARIL) 100 MG tabletIndications:Sc hizophrenia Take 1 Tab by mouth at bedtime. Indications: Schizophrenia 30 Tab 3 08/07/2012 Active cloZAPine 50 MG TABSIndications:Schi zophrenia Take 50 mg by mouth once daily. Indications: Schizophrenia 30 Tab 3 08/07/2012 Active atenolol (TENORMIN) 50 MG tabletIndications:Hy pertension Take 1 Tab by mouth once daily. Indications: High Blood Pressure 30 Tab 3 08/07/2012 Active levothyroxine (SYNTHROID) 50 MCG tabletIndications:Hy pothyroidism Take 1 Tab by mouth daily with breakfast. Indications: Underactive Thyroid 30 Tab 3 08/07/2012 Active valproic acid (DEPAKENE) 250 MG/5ML solutionIndications: Bipolar Mood Disorder Take 5 mL by mouth 3 times daily. Indications: Manic-Depression 0 0 05/07/2014 Active ARIPiprazole (ABILIFY) 5 MG tabletIndications:Sc hizophrenia Take 1 Tab by mouth once daily. Indications: Schizophrenia 0 0 05/07/2014 Active aluminum & magnesium hydroxide (MAALOX) 200-200 MG/5ML suspensionIndication s:Mild Gastric Distress Take 30 mL by mouth once daily as needed for Heartburn. Indications: Mildly Upset Stomach 0 0 05/07/2014 Active multivitamin daily (THERAGRAN) tabletIndications:Vi tamin Deficiency Take 1 Tab by mouth daily with food. Indications: Vitamin Deficiency 0 0 05/07/2014 Active Active Problems Problem Noted Date Diagnosed Date Aggression 08/01/2012 Schizoaffective disorder 08/01/2012 Social History Tobacco Use Types Packs/Day Years Used Date Smoking Tobacco: Never Smokeless Tobacco: Never Alcohol Use Standard Drinks/Week Comments No 0 (1 standard drink = 0.6 oz pur e alcohol) Sex and Gender Information Value Date Recorded Sex Assigned at Not on file Gender Identity Not on file Sexual Orientation Not on file Last Filed Vital Signs Vital Sign Reading Time Taken Comments Blood Pressure 108/77 05/07/2014 6:09 AM NEGATIVE DEVELOPER Pulse 63 05/07/2014 6:09 AM NEGATIVE DEVELOPER Temperature 36 ??C (96.8 ??F) 05/07/2014 6:09 AM NEGATIVE DEVELOPER Respiratory Rate 18 05/07/2014 6:09 AM NEGATIVE DEVELOPER Oxygen Saturation 100% 05/07/2014 6:09 AM NEGATIVE DEVELOPER Inhaled Oxygen Concentration - - Weight 78 kg (172 lb) 05/04/2014 5:02 PM NEGATIVE DEVELOPER Height 175.3 cm (5' 9 ) 05/04/2014 5:02 PM NEGATIVE DEVELOPER Body Mass Index 25.4 05/04/2014 5:02 PM NEGATIVE DEVELOPER Plan of Treatment Health Maintenance Due Date Last Done Comments HIV SCREENING 08/17/2002 HEPATITIS C SCREENING 08/13/2005 DTAP/TDAP/TD VACCINES (1 - Tdap) 08/17/2006 HEPATITIS B VACCINE (1 of 3 - 19+ 3-dose series) 08/17/2006 COVID-19 VACCINE (1 - 2023-2 5 season) 2023 INFLUENZA VACCINE (#1) 2023 DEPRESSION SCREENING 04/22/2024 ZOSTER VACCINE (1 of 2) 08/17/2037 HIB VACCINE Aged Out No longer eligi ble based on patient's age to complete this topic HPV VACCINE Aged Out No longer eligi ble based on patient's age to complete this topic MENINGOCOCCAL (Group B) VACCINE Aged Out No longer eligible based on patient's age to complete this topic MENINGOCOCCAL VACCINE Aged Out No jorgito erin eligible based on patient's age to complete this topic PNEUMOCOCCAL VACCINE Aged Out No long er eligible based on patient's age to complete this topic Advance Directives * Full Code (Latest Code Status on File) Date Activated Date Inactivated Comments 05/05/2014 1:10 AM 05/07/2014 1:58 PM * FULL RESUSCITATION Date Activated Date Inactivated Comments 07/31/2012 9:59 PM 08/12/2012 11:56 AM Care Teams Engine Turner Relationship Specialty Start Date End Date Darwin Quintanilla MD PCP - General Internal Medicine 04/05/12
--- OUTSIDE RECORDS SUMMARY | 2024-05-14 22:13 | XMS_ITS | Referral Summary ---
Author Organization [facility] Address [address] [place] [address] Care Team Providers Care Crop Nutrition Scientist Name Role Phone Darwin Quintanilla MD Primary Care Provider Source Comments [facility],non-owned Affiliates and Associated Physician Practices is amultiple site organization consisting of ambulatory clinics and hospital sitesin [place], [place], [place] and [place]. This disclosure is being madepursuant to the Care Everywhere program and may not contain all information available regarding this patient. Last updated 18.[facility] Allergies No known active allergies Medications * [...] Comments Blood Pressure 108/77 05/07/2014 6:09 AM DRIVER TRAINER Pulse 63 05/07/2014 6:09 AM DRIVER TRAINER Temperature 36 ??C (96.8 ??F) 05/07/2014 6:09 AM DRIVER TRAINER Respiratory Rate 18 05/07/2014 6:09 AM DRIVER TRAINER Oxygen Saturation 100% 05/07/2014 6:09 AM DRIVER TRAINER Inhaled Oxygen Concentration - - Weight 78 kg (172 lb) 05/04/2014 5:02 PM DRIVER TRAINER Height 175.3 cm (5' 9 ) 05/04/2014 5:02 PM DRIVER TRAINER Body Mass Index 25.4 05/04/2014 5:02 PM DRIVER TRAINER Functional Status Functional Status Response Date of Assess ment Is person deaf or have serious hearing difficult y? No 05/04/2014 Is person blind or have serious difficulty seein g? No 05/04/2014 Does person have serious dif ficulty walking/climbing stairs? No 05/04/2014 Does person have difficulty dressing/bathing? No 05/04/2014 Does person have difficulty doing errands alone? No 05/04/2014 Cognitive Status Response Date of Assessm ent Does person have difficulty concentrating/remembering/making decisions? No 05/04/2014 Plan of Treatment Not on file Advance Directives * Full Code (Latest Code Status on File) Date Activated Date Inactivated Comments 05/05/2014 1:10 AM 05/07/2014 1:58 PM * FULL RESUSCITATION Date Activated Date Inactivated Comments 07/31/2012 9:59 PM 08/12/2012 11:56 AM Care Teams Crop Nutrition Scientist Relationship Specialty Start Date End Date Darwin Quintanilla MD PCP - General Internal Medicine 04/05/12
--- OUTSIDE RECORDS SUMMARY | 2024-05-14 22:13 | XMS_ITS | Encounter Summary ---
Author Organization [facility] Address [address] [place] [address] Phone Care Team Providers Care Electrical Controls Engineer Name Role Phone Jose Allan MD Primary Care Provider [phone] Provider, None Primary Care Provider Unavailabl e Encounter Details Date Type Department Care Team (Late st Contact Info) Description 07/04/2022 Lab Requisition [facility] [address] [place] [address] Medhat Briggs MD [address] [place] [address] [facility] [address] [place] [address] Encounter for screening for COVID-19 Social History [...] Associated Diagnosis Comments SARS-COV-2 BY MOLECULAR Routine 07/04/2022 7:47 AM CDT Encounter for screening for COVID-19 documented in this encounter Results * SARS-COV-2 BY MOLECULAR (07/04/2022 7:47 AM CDT) SARSCOV2 NOT DETECTED (Referen ce Range for this test is Not Detected ) [facility]ERMOF[facility] FAST DX 07/04/2022 5:02 PM CDT [facility] Comment:This test was perfor med by a RT-PCR method. Other COVID 19 Collection / Unknown 07/04/2022 7:47 AM CDT 07/04/2022 9:54 AM CDT Narrative [facility] - 07/04/2022 5:02 PM CDT Authorized Fact Sheets about this test for providers and patients are available at: https://www.fda.gov/medical-devices/rcuamvioe-rubzcjelzp-qvbemyz-devices/emergen cy-us e-authorizations us Medhat Briggs MD MICROBIOLOGY - GENERAL ORDERAB LES Final Result [facility] [address] [place] [address], documented in this encounter Visit Diagnoses Diagnosis Encounter for screening for COVID-19 documented in this encounter Additional Health Concerns Infection Onset Date Last Indicated Resolved Time COVID - 19 04/25/2022 07/04/2022 07/14/2022 12:1 6 AM CDT documented as of this encounter Care Teams Electrical Controls Engineer Relationship Specialty Start Date End Date Jose Allan MD PCP - General Family Medicine 04/22/22 07/14/23 Provider, None [place] PCP - General 03/08/24 documented as of this encounter
--- OUTSIDE RECORDS SUMMARY | 2024-05-14 22:13 | XMS_ITS | Encounter Summary ---
Author Organization [facility] Address [address] [place] [address] Phone Care Team Providers Care Graduate Teaching Associate Name Role Phone Felisha Yu MD Primary Care Provider [phone] Jose Allan MD Primary Care Provider Provider, None Primary Care Provider Unavailabl e Encounter Details Date Type Department Care Team (Late st Contact Info) Description 01/24/2022 Lab Requisition [facility] Services [address] [place] [address] Medhat Briggs MD [address] [place] [address] [address] [place] [address] Encounter for screening for COVID-19 Social History [...] Associated Diagnosis Comments SARS-COV-2 BY MOLECULAR Routine 01/24/2022 8:00 AM CDT Encounter for screening for COVID-19 documented in this encounter Results * SARS-COV-2 BY MOLECULAR (01/24/2022 8:00 AM CDT) SARSCOV2 NOT DETECTED (Referen ce Range for this test is Not Detected ) [facility] THERMOF[facility] FAST DX 01/25/2022 12:29 AM CDT [facility] Comment:This test was perfor med by a RT-PCR method. Other No Phlebotomy Charged / Unknown 01/24/2022 8:00 AM CDT 01/24/2022 2:25 PM CDT Narrative [facility] - 01/25/2022 12:29 AM CDT Authorized Fact Sheets about this test for providers and patients are available at: https://www.fda.gov/medical-devices/otjylbfed-oyrlvxelar-wfmzewd-devices/emergen -us e-authorizations us Medhat Briggs MD MICROBIOLOGY - GENERAL ORDERAB LES Final Result [facility] [address] [place] [address], documented in this encounter Visit Diagnoses Diagnosis Encounter for screening for COVID-19 documented in this encounter Additional Health Concerns Infection Onset Date Last Indicated Resolved Time COVID - 19 11/01/2021 02/28/2022 03/10/2022 12:1 6 AM TITLE SUPERVISOR COVID - 19 04/25/2022 07/04/2022 07/14/2022 12:1 6 AM CDT documented as of this encounter Care Teams Graduate Teaching Associate Relationship Specialty Start Date End Date Felisha Yu MD PCP - General Family Medicine 07/20/15 04/21/22 Jose Allan MD PCP - General Family Medicine 04/22/22 07/14/23 Provider, None [place] PCP - General 03/08/24 documented as of this encounter
--- OUTSIDE RECORDS SUMMARY | 2024-05-14 22:13 | XMS_ITS | Encounter Summary ---
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; Major depressive disorder, recurrent, mild (HCC); Schizophrenia, unspecified (HCC) Social History Tobacco Use Types Packs/Day Years [...] Diagnosis Comments CBC WITH AUTO DIFFERENTIAL Routine 02/05/2024 7:57 AM CDT 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 Major depressive disorder, recurrent, mild (HCC) Schizophrenia, unspecified (HCC) COMPLETE BLOOD COUNT (CBC) WITH DIFF Routine 02/05/2024 7:57 AM CDT 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0 fL 02/05/2024 8:59 AM CDT [facility] MCH 30.4 26.0 - 32.0 pg 02/05/2024 8:59 AM CDT [facility] MCHC 33.4 31.0 - 36.0 g/dL 02/05/2024 8:59 AM CDT [facility] PLATELET COUNT 289 140 - 440 10(3)/[facility] 02/05/2024 8:59 AM CDT [facility] RDW 12.5 11.8 - 15.5 % 02/05/2024 8:59 AM CDT [facility] MPV 9.1 8.0 - 12.6 fL 02/05/2024 8:59 AM CDT [facility] NEUTROPHILS 46.4 40.0 - 68.0 % 02/05/2024 8:59 AM CDT [facility] LYMPHOCYTES 31.0 19.0 - 49.0 % 02/05/2024 8:59 AM CDT [facility] MONOCYTES 9.1 3.0 - 13.0 % 02/05/2024 8:59 AM CDT [facility] EOSINOPHILS 12.2(H) 0.0 - 8.0 % 02/05/2024 8:59 AM CDT [facility] BASOPHILS 1.3(H) 0.0 - 1.0 % 02/05/2024 8:59 AM CDT [facility] ABSOLUTE NEUTROPHILS 2.20 1.40 - 5.30 10(3)/mcL 02/05/2024 8:59 AM CDT [facility] ABSOLUTE LYMPHOCYTES 1.47 0.90 - 3.30 10(3)/mcL 02/05/2024 8:59 AM CDT [facility] ABSOLUTE MONOCYTES 0.43 0.10 - 0.90 10(3)/[facility] 02/05/2024 8:59 AM CDT [facility] ABSOLUTE EOSINOPHIL 0.58(H) 0.00 - 0.50 10(3)/[facility] 02/05/2024 8:59 AM CDT [facility] ABSOLUTE BASOPHILS 0.06 0.00 - 0.10 10(3)/[facility] 02/05/2024 8:59 AM CDT [facility] NRBC PER 100 WBC 0 02/05/20 8:59 AM CDT [facility] Blood Venipuncture / Unknown 02/05/2024 7:57 AM CDT 02/05/2024 8:44 AM CDT us Not On File Provider HEMATOLOGY ORDERABLES Final Result [facility] [place] [address] documented in this encounter Visit Diagnoses Diagnosis 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
--- OUTSIDE RECORDS SUMMARY | 2024-05-14 22:13 | XMS_ITS | Encounter Summary ---
Author Organization [facility] Address [address] [place] [address] Phone Care Team Providers Care Reducing Salon Attendant Name Role Phone Jose Allan MD Primary Care Provider [phone] Provider, None Primary Care Provider Unavailabl e Encounter Details Date Type Department Care Team (Late st Contact Info) Description 05/23/2022 Lab Requisition [facility] Services [address] [place] [address] Medhat Briggs MD [address] [place] [address] [facility] [address] [place] [address] Encounter for screening for COVID-19 Social History [...] Associated Diagnosis Comments SARS-COV-2 BY MOLECULAR Routine 05/23/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 THERMOF[facility] FAST DX 05/23/2022 9:47 PM POULTRY FARM MANAGER [facility] Comment:This test was perfor med by a RT-PCR method. Other Non-Phlebotomy Collection / Unknown 05/23/2022 7:43 AM POULTRY FARM MANAGER 05/23/2022 10:22 AM POULTRY FARM MANAGER Narrative [facility] - 05/23/2022 9:47 PM POULTRY FARM MANAGER Authorized Fact Sheets about this test for providers and patients are available at: https://www.fda.gov/medical-devices/ofcsfiryv-fsvcdgcugo-zduqbir-devices/emergen -us e-authorizations us Medhat Briggs MD MICROBIOLOGY - GENERAL ORDERAB LES Final Result [facility] [address] [place] [address], documented in this encounter Visit Diagnoses Diagnosis Encounter for screening for COVID-19 documented in this encounter Additional Health Concerns Infection Onset Date Last Indicated Resolved Time COVID - 19 04/25/2022 07/04/2022 07/14/2022 12:1 6 AM CDT documented as of this encounter Care Teams Reducing Salon Attendant Relationship Specialty Start Date End Date Jose Allan MD PCP - General Family Medicine 04/22/22 07/14/23 Provider, None [place] PCP - General 03/08/24 documented as of this encounter
--- OUTSIDE RECORDS SUMMARY | 2024-05-14 22:13 | XMS_ITS | Patient Health Summary ---
Author Organization [facility] Address [address] [place] [address] Care Team Providers Care Recreation Therapy Teacher Name Role Phone Darwin Quintanilla MD Primary Care Provider Note from [facility],non-owned Affiliates and Associated Physician Practices is amultiple site organization consisting of ambulatory clinics and hospital sitesin [place], [place], [place] and [place]. This disclosure is being madepursuant to the Care Everywhere program and may not contain all information available regarding this patient. Last updated 18.[facility] Allergies No known active allergies Medications * Be aware that medications may not be up to date on this document. Alwaysverify current medications with the patient. * acetaminophen (TYLENOL) 325 MG tablet(Started 08/07/2012) Take 2 Tabs by mouth every 4 hours as needed for Fever or Pain. Maximum allowable Acetaminophen amount = 4 Grams (4000 mg) / 24 hours. * hydrOXYzine hcl (ATARAX) 50 MG tablet(Started 08/07/2012) Take 1 Tab by mouth 3 times daily as needed. Indications: Anxiety Neurosis 3 refills left * benztropine (COGENTIN) 0.5 MG tablet(Started 08/07/2012) Take 1 Tab by mouth 2 times daily. 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 Indications: Schizophrenia 3 refills left * cloZAPine 50 MG TABS(Started 08/07/2012) Take 50 mg by mouth once daily. Indications: Schizophrenia 3 refills left * atenolol (TENORMIN) 50 MG tablet(Started 08/07/2012) Take 1 Tab by mouth once daily. Indications: High Blood Pressure 3 refills left * levothyroxine (SYNTHROID) 50 MCG tablet(Started 08/07/2012) Take 1 Tab by mouth daily with breakfast. Indications: Underactive Thyroid 3 refills left * valproic acid (DEPAKENE) 250 MG/5ML solution(Started 05/07/2014) Take 5 mL by mouth 3 times daily. Indications: Manic-Depression * ARIPiprazole (ABILIFY) 5 MG tablet(Started 05/07/2014) Take 1 Tab by mouth once daily. Indications: Schizophrenia * aluminum & magnesium hydroxide (MAALOX) 200-200 MG/5ML suspension(Started 05/07/2014) Take 30 mL by mouth once daily as needed for Heartburn. Indications: Mildly Upset Stomach * multivitamin daily (THERAGRAN) tablet(Started 05/07/2014) Take 1 Tab by mouth daily with food. Indications: Vitamin Deficiency Active Problems Problem Noted Date Diagnosed Date [...] Comments Blood Pressure 108/77 05/07/2014 6:09 AM TICK ERADICATOR Pulse 63 05/07/2014 6:09 AM TICK ERADICATOR Temperature 36 ??C (96.8 ??F) 05/07/2014 6:09 AM TICK ERADICATOR Respiratory Rate 18 05/07/2014 6:09 AM TICK ERADICATOR Oxygen Saturation 100% 05/07/2014 6:09 AM TICK ERADICATOR Inhaled Oxygen Concentration - - Weight 78 kg (172 lb) 05/04/2014 5:02 PM TICK ERADICATOR Height 175.3 cm (5' 9 ) 05/04/2014 5:02 PM TICK ERADICATOR Body Mass Index 25.4 05/04/2014 5:02 PM TICK ERADICATOR Procedures * DRUG ABUSE URINE PANEL(Performed 05/04/2014) * URINALYSIS REFLEX MICROSCOPIC REFLEX CULTURE(Performed 05/04/2014) * TSH(Performed 05/04/2014) * COMPREHENSIVE METABOLIC PANEL(Performed 05/04/2014) * CBC W AUTO DIFFERENTIAL(Performed 05/04/2014) * CBC W AUTO DIFFERENTIAL(Performed 08/11/2012) * WBC COUNT(Performed 08/06/2012) * URINALYSIS REFLEX TO MICROSCOPIC NO CULTURE(Performed 08/02/2012) * CLOZAPINE LEVEL(Performed 08/01/2012) * T4 FREE(Performed 08/01/2012) * T3 FREE(Performed 08/01/2012) * TSH(Performed 08/01/2012) * RPR(Performed 08/01/2012) * LIPID PROFILE(Performed 08/01/2012) * COMPREHENSIVE METABOLIC PANEL(Performed 08/01/2012) * CBC W AUTO DIFFERENTIAL(Performed 08/01/2012) * COMPREHENSIVE METABOLIC PANEL(Performed 11/02/2007) Performed for Bipolar Disorder, Unspecified (HCC) * LITHIUM LEVEL(Performed 11/02/2007) Performed for Bipolar Disorder, Unspecified (HCC) * CBC W AUTO DIFFERENTIAL(Performed 11/02/2007) Performed for Bipolar Disorder, Unspecified (HCC) * LITHIUM LEVEL(Performed 10/27/2007) Performed for Bipolar Disorder, Unspecified (HCC) * COMPREHENSIVE METABOLIC PANEL(Performed 10/27/2007) Performed for Bipolar Disorder, Unspecified (HCC) * CBC W AUTO DIFFERENTIAL(Performed 10/27/2007) Performed for Bipolar Disorder, Unspecified (HCC) * COMPREHENSIVE METABOLIC PANEL(Performed 10/16/2007) Performed for Bipolar Disorder, Unspecified (HCC) * LITHIUM LEVEL(Performed 10/16/2007) Performed for Bipolar Disorder, Unspecified (HCC) * CBC W AUTO DIFFERENTIAL(Performed 10/16/2007) Performed for Bipolar Disorder, Unspecified (HCC) * CT HEAD WO CONTRAST(Performed 10/14/2007) * LITHIUM LEVEL(Performed 10/07/2007) Performed for Bipolar Disorder, Unspecified (HCC) * COMPREHENSIVE METABOLIC PANEL(Performed 10/06/2007) Performed for Bipolar Disorder, Unspecified (HCC) * LITHIUM LEVEL(Performed 10/06/2007) Performed for Bipolar Disorder, Unspecified (HCC) * CBC W AUTO DIFFERENTIAL(Performed 10/06/2007) Performed for Bipolar Disorder, Unspecified (HCC) * DRUG SCREEN URINE MEDICAL 8 PANEL(Performed 10/02/2007) Performed for Bipolar Disorder, Unspecified (HCC) * URINALYSIS REFLEX TO MICROSCOPIC NO CULTURE(Performed 10/02/2007) Performed for Bipolar Disorder, Unspecified (HCC) * MIYA BLOOD SCREEN W/REFLEX TITER(Performed 09/30/2007) Performed for Bipolar Disorder, Unspecified (HCC) * TSH(Performed 09/30/2007) Performed for Bipolar Disorder, Unspecified (HCC) * VITAMIN B12(Performed 09/30/2007) Performed for Bipolar Disorder, Unspecified (HCC) * T4 FREE(Performed 09/30/2007) Performed for Bipolar Disorder, Unspecified (HCC) * RPR(Performed 09/30/2007) Performed for Bipolar Disorder, Unspecified (HCC) * COMPREHENSIVE METABOLIC PANEL(Performed 09/30/2007) Performed for Bipolar Disorder, Unspecified (HCC) * LITHIUM LEVEL(Performed 09/30/2007) Performed for Bipolar Disorder, Unspecified (HCC) * CBC W AUTO DIFFERENTIAL(Performed 09/30/2007) Performed for Bipolar Disorder, Unspecified (HCC) Results * URINALYSIS ROUTINE W/REFLEX TO CULTURE (05/04/2014 8:33 PM TICK ERADICATOR) Color UA Yellow Straw, Yellow, Dark Yellow 05/04/2014 8:48 PM TICK ERADICATOR [facility] Clarity UA Clear 05/04/2014 8:48 PM TICK ERADICATOR [facility] Specific [place] UA 1.011 1.005 - 1.030 05/04/2014 8:48 PM TICK ERADICATOR [facility] pH UA 6.0 5.0 - 8.0 pH 05/04/2014 8:48 PM TICK ERADICATOR [facility] Protein UA Negative Negative 05/04/2014 8:48 PM TICK ERADICATOR [facility] Blood UA Negative Negative 05/04/2014 8:48 PM TICK ERADICATOR [facility] Leukocyte UA Negative Negative 05/04/2014 8:48 PM TICK ERADICATOR [facility] Nitrite UA Negative Negative 05/04/2014 8:48 PM TICK ERADICATOR [facility] Glucose UA Negative Negative 05/04/2014 8:48 PM TICK ERADICATOR [facility] Ketone UA Negative Negative 05/04/2014 8:48 PM TICK ERADICATOR [facility] Bilirubin UA Negative Negative 05/04/2014 8:48 PM TICK ERADICATOR [facility] Urobilinogen UA 0.2 0.1 - 1.0 EU/dL 05/04/2014 8:48 PM TICK ERADICATOR [facility] Reflex Status Culture not indicated 05/04/2014 8:48 PM TICK ERADICATOR [facility] Urine URINE SPECIMEN OBTAINED BY CLEAN CATCH PROCEDURE / Unknown Collection / Unknown 05/04/2014 8:33 PM TICK ERADICATOR 05/04/2014 8:43 PM TICK ERADICATOR John Conway MD LAB - URINALYSIS O RDERABLES [facility] [address] [place] [address] * DRUG ABUSE URINE PANEL (05/04/2014 8:33 PM TICK ERADICATOR) [facility] Amphetamines Screen Urine Not Detected Not Detected 05/04/2014 8:57 PM TICK ERADICATOR [facility] Barbiturates Screen Urine Not Detected Not Detected 05/04/2014 8:[address] [facility] Benzodiazepines Screen Urine Not Detected Not Detected 05/04/2014 8:57 PM TICK ERADICATOR [facility] Cannabinoids Screen Urine Not Detected Not Detected 05/04/2014 8:[address] [facility] Cocaine Screen Urine Not Detected Not Detected 05/04/2014 8:[address] [facility] Opiate Screen Urine Not Detected Not Detected 05/04/2014 8:[address] [facility] Phencyclidine Screen Urine Not Detected Not Detected 05/04/2014 8:[address] [facility] Urine URINE / Unknown Collection / Unknown 05/04/2014 8:33 PM TICK ERADICATOR 05/04/2014 8:43 PM TICK ERADICATOR Narrative [facility] - 05/04/2014 8:57 PM TICK ERADICATOR This drug screen is designed for MEDICAL purposes only. It is not to be used for legal purposes, including but not limited to worker's comp, police investigations, occupational issues, child custody, etc. ??Any positive result is only presumptive and must be confirmed with a separate confirmatory test ordered by the physician. Drug Screening Test Cutoff Values: AMPHETAMINES ?1000 ng/ml BARBITURATES ? 200 ng/ml BENZODIAZEPINES ??200 ng/ml CANNABINOIDS(THC) 50 ng/ml COCAINE ?300 ng/ml OPIATES ?300 ng/ml PHENCYCLIDINE(PCP)25 ng/ml John Conway MD LAB - URINE CHEMIS TRY ORDERABLES [facility] [address] [place] [address] * (ABNORMAL) CBC W AUTO DIFFERENTIAL (05/04/2014 8:32 PM TICK ERADICATOR) Only the most recent of8 resultswithin the time period is included. WBC 11.2(H) 4.4 - 10.7 x10^9/L 05/04/2014 8:[address] [facility] RBC 5.29 3.80 - 5.40 x10^12/L 05/04/2014 8:[address] [facility] Hemoglobin 15.8 12.0 - 17.6 gm/dL 05/04/2014 8:[address] [facility] Hematocrit 44.4 35.2 - 51.7 % 05/04/2014 8:[address] [facility] MCV 83.9 80.7 - 98.3 fl 05/04/2014 8:[address] [facility] MCH 29.9 26.7 - 34.0 pg 05/04/2014 8:[address] [facility] MCHC 35.6 30.8 - 35.9 gm/dL 05/04/2014 8:[address] [facility] Platelet Count 313 153 - 416 x10^9/L 05/04/2014 8:[address] [facility] RDW-CV 12.2 12.1 - 14.9 % 05/04/2014 8:[address] [facility] MPV 8.7(L) 9.4 - 12.9 fl 05/04/2014 8:[address] [facility] Neutrophils % 79.0(H) 44.0 - 73.0 % 05/04/2014 8:[address] [facility] Lymphocytes % 16.1(L) 20.0 - 43.0 % 05/04/2014 8:[address] [facility] Monocytes % 3.5(L) 5.0 - 13.0 % 05/04/2014 8:[address] [facility] Eosinophils % 0.8 0.0 - 6.0 % 05/04/2014 8:[address] [facility] Basophils % 0.3 0.0 - 2.0 % 05/04/2014 8:[address] [facility] Immature Granulocytes 0.3 0 - 1 % 05/04/2014 8:[address] [facility] Neutrophil Absolute 8.86(H) 2.01 - 7.14 x10^9/L 05/04/2014 8:[address] [facility] Lymphocytes Absolute 1.80 1.07 - 3.94 x10^9/L 05/04/2014 8:[address] [facility] Monocytes Absolute 0.39 0.26 - 1.07 x10^9/L 05/04/2014 8:[address] [facility] Eosinophils Absolute 0.09 0 - 0.47 x10^9/L 05/04/2014 8:[address] [facility] Basophils Absolute 0.03 0 - 0.08 x10^9/L 05/04/2014 8:[address] [facility] Immature Granulocytes Absolute 0.03 0.00 - 0.06 x10^9/L 05/04/2014 8:[address] [facility] Blood BLOOD SPECIMEN / Unknown Venipuncture / Unknown 05/04/2014 8:32 PM TICK ERADICATOR 05/04/2014 8:43 PM [facility] John Conway MD LAB - HEMATOLOGY O RDERABLES [facility] [address] [place] [address] * (ABNORMAL) COMPREHENSIVE METABOLIC PANEL (05/04/2014 8:32 PM TICK ERADICATOR) Only the most recent of7 resultswithin the time period is included. Glucose 141(H) 74 - 106 mg/dL 05/04/2014 9:[address] [facility] Sodium 137 136 - 145 mmol/L 05/04/2014 9:[address] [facility] Potassium 3.5 3.5 - 5.1 mmol/L 05/04/2014 9:[address] [facility] Chloride 102 98 - 107 mmol/L 05/04/2014 9:[address] [facility] CO2 30 22 - 31 mmol/L 05/04/2014 9:[address] [facility] Calcium 9.5 8.5 - 10.1 mg/dL 05/04/2014 9:[address] [facility] Anion Gap 5 5 - 15 mmol/L 05/04/2014 9:[address] [facility] BUN 14 7 - 21 mg/dL 05/04/2014 9:[address] [facility] Creatinine 0.88 0.50 - 1.30 mg/dL 05/04/2014 9:[address] [facility] eGFR by MDRD >60 >60 mL/min/1.7 3m2 05/04/2014 9:[address] [facility] eGFR by MDRD >60 >60 mL/min/1.7 3m2 05/04/2014 9:[address] [facility] Alkaline Phosphatase 66 38 - 126 U/L 05/04/2014 9:[address] [facility] ALT 24 12 - 78 U/L 05/04/2014 9:[address] [facility] AST 9 5 - 40 U/L 05/04/2014 9:[address] [facility] Protein Total 8.5(H) 6.4 - 8.2 gm/dL 05/04/2014 9:[address] [facility] Albumin 4.9 3.4 - 5.0 gm/dL 05/04/2014 9:[address] [facility] Bilirubin Total 0.4 0.2 - 1.0 mg/dL 05/04/2014 9:[address] [facility] Blood BLOOD SPECIMEN / Unknown Venipuncture / Unknown 05/04/2014 8:32 PM TICK ERADICATOR 05/04/2014 8:43 PM TICK ERADICATOR John Conway MD LAB - CHEMISTRY OR DERABLES Performing Organization Address City/State/[facility] Co de Phone Number [facility] [address] [place] [address] * TSH (05/04/2014 8:32 PM TICK ERADICATOR) Only the most recent of3 resultswithin the time period is included. TSH 0.947 0.358 - 3.740 uIU/mL 05/04/2014 9:[address] [facility] Comment: Blood BLOOD SPECIMEN / Unknown Venipuncture / Unknown 05/04/2014 8:32 PM TICK ERADICATOR 05/04/2014 8:43 PM TICK ERADICATOR John Conway MD LAB - CHEMISTRY OR DERABLES [facility] [address] [place] [address] * WBC COUNT (08/06/2012 8:24 AM CDT) WBC 6.6 4.4 - 10.7 x10^9/L 08/06/2012 11:56 AM CDT [facility] Blood specimen (specimen) BLOOD SPECIMEN / Unknown 08/06/2012 8:24 AM CDT 08/06/2012 9:14 AM CDT Crystal Kidd MD LAB - HEMATOLOGY ORD ERABLES Performing Organization Address City/[facility] Co de Phone Number [facility] [address] [place] [address] * URINALYSIS ROUTINE AUTO (08/02/2012 9:32 AM CDT) Only the most recent of2 resultswithin the time period is included. Color UA Yellow Straw, Yellow, Dark Yellow 08/02/2012 11:52 AM T [facility] Clarity UA Clear (none) 08/02/2012 11:52 AM T [facility] Specific [place] UA 1.019 1.005 - 1.030 08/02/2012 11:52 AM [facility] pH UA 6.0 5.0 - 8.0 08/02/2012 11:52 AM T [facility] Protein UA Negative Negative 08/02/2012 11:52 AM CDT [facility] Blood UA Negative Negative 08/02/2012 11:52 AM T [facility] Leukocyte UA Negative Negative 08/02/2012 11:52 AM T [facility] Nitrite UA Negative Negative 08/02/2012 11:52 AM T [facility] Glucose UA Negative Negative 08/02/2012 11:52 AM T [facility] Ketone UA Negative Negative 08/02/2012 11:52 AM [facility] Bilirubin UA Negative Negative 08/02/2012 11:52 AM T [facility] Urobilinogen UA 0.2 0.1 - 1.0 EU/dL 08/02/2012 11:52 AM CDT [facility] Urine specimen (specimen) URINE SPECIMEN OBTAINED BY CLEAN CATCH PROCEDURE / Unknown 08/02/2012 9:32 AM CDT 08/02/2012 11:31 AM CDT Crystal Kidd MD LAB - URINALYSIS ORD ERABLES Performing Organization Address City/[facility] Co de Phone Number [facility] [address] [place] [address] * RPR (08/01/2012 9:06 AM CDT) Only the most recent of2 resultswithin the time period is included. RPR Nonreactive Nonreactive 08/04/2012 10:09 AM CDT [facility] Blood specimen (specimen) BLOOD SPECIMEN / Unknown 08/01/2012 9:06 AM CDT 08/01/2012 9:06 AM CDT Crystal iKdd MD LAB - CHEMISTRY [address] Performing Organization Address [facility] Co de Phone Number [facility] [address] [place] [address] * T3 FREE (08/01/2012 9:06 AM CDT) T3 Free 3.32 2.18 - 3.98 pg/mL 08/01/2012 12:17 PM CDT [facility] Blood specimen (specimen) BLOOD SPECIMEN / Unknown 08/01/2012 9:06 AM CDT 08/01/2012 9:06 AM CDT Crystal Kidd MD LAB - CHEMISTRY ORDE RABMEAGHAN Performing Organization Address City/[facility] Co de Phone Number [facility] [address] [place] [address] * CLOZAPINE LEVEL (08/01/2012 9:06 AM CDT) Clozapine 308 08/02/2012 6:46 PM CDT [facility] Comment: INTERPRETIVE INFORMATION: Clozapine Therapeutic range: ??Not well established. Toxic range: Greater than 2000 ng/mL Clozapine concentrations between 100 and 700 ng/mL may correlate more with clinical response; however, non-responsiveness may occur within this range. For refractory schizophrenia, 350 ng/mL of clozapine is suggested to achieve a therapeutic response. After initial therapeutic response occurs, the dose should be progressively reduced to the minimum level necessary to maintain clinical remission. The likelihood of seizures and other side effects increase with clozapine levels greater than 1200 ng/mL and/or dosages greater than 600 mg/24h. Toxic concentrations may cause hypotension, cardiac abnormalities, respiratory depression, coma and . A toxic range is not well established in children. Blood specimen (specimen) BLOOD SPECIMEN / Unknown 08/01/2012 9:06 AM CDT 08/01/2012 9:06 AM CDT Crystal Kidd MD LAB - CHEMISTRY [address] Performing Organization Address City/[facility]/ZIP Co de Phone Number [facility] [address] [place] [address] * (ABNORMAL) T4 FREE (08/01/2012 9:06 AM CDT) Only the most recent of2 resultswithin the time period is included. T4 Free 1.39(H) 0.65 - 1.34 ng/dL 08/01/2012 12:09 PM CDT [facility] Blood specimen (specimen) BLOOD SPECIMEN / Unknown 08/01/2012 9:06 AM CDT 08/01/2012 9:06 AM CDT Crystal Kidd MD LAB - CHEMISTRY [address] Performing Organization Address City/[facility]/ZIP Co de Phone Number [facility] [address] [place] [address] * (ABNORMAL) LIPID PROFILE (08/01/2012 9:06 AM CDT) Cholesterol 175 <200 mg/dL 08/01/2012 12:09 PM CDT [facility] Triglycerides 151(H) <150 mg/dL 08/01/2012 12:09 PM CDT [facility] HDL Cholesterol 53 >40 mg/dL 3 12:09 PM CDT [facility] VLDL Calculated 30 <=30 mg/dL 3 12:09 PM CDT [facility] Chol HDL Ratio 3.3 <4.5 08/01/2012 12:09 PM CDT [facility] LDL Direct 99 <130 mg/dL 08/01/2012 12:09 PM CDT [facility] Blood specimen (specimen) BLOOD SPECIMEN / Unknown 08/01/2012 9:06 AM CDT 08/01/2012 9:06 AM CDT Crystal Kidd MD LAB - CHEMISTRY [address] Performing Organization Address City/[facility]/ZIP Co de Phone Number [facility] [address] [place] [address] * LITHIUM LEVEL (11/02/2007 7:40 AM CDT) Only the most recent of6 resultswithin the time period is included. Bromide .78 0.5 - 1.5 mmol/L [facility] Last Dose Date/Time 10/31 2100 600mg [facility] 11/02/2007 7:40 AM CDT Tian Altamirano LAB - CHEMISTRY [address] Performing Organization Address [facility] Co de Phone Number [facility] [address] [place] [address] * CT HEAD NON CONTRAST (10/14/2007 3:55 PM CDT) Anatomical Region Laterality Modality Head Other 10/14/2007 3:55 PM CDT Narrative 10/14/2007 4:[address]- HISTORY- ?Blunt trauma. Headache. TECHNIQUE- ? Noncontrast examination. FINDINGS- There is no acute bleed. There is no infarct. No mass is seen. No midline deviation is evident. The ventricles and subarachnoid spaces are unremarkable. The partially visualized sinuses show are unremarkable. There is enlargement of the right external auditory meatus, in keeping with history of prior surgery. The partly defined orbits are normal. The rest of the skull base is unremarkable. IMPRESSION- 1. No acute bleed evident. 2. Previous surgery involving the right external auditory meatus; otherwise unremarkable brain CT. ? Reading Radiologist- BENJY TRIPLETT MD ? Releasing Radiologist- BENJY TRIPLETT MD ? Released Date Time- 10/14/071625 ? Negative Spotter- GUNNAR ? ADM- BE BLANKENSHIP ?ATT- BE BLANKENSHIP REF- ?HARDIK- TIAN ALTAMIRANO PCP- BE BLANKENSHIP ?SCP- Procedure Note Benjy Triplett MD - 10/14/[address]- HISTORY- Blunt trauma. Headache. TECHNIQUE- Noncontrast examination. FINDINGS- There is no acute bleed. There is no infarct. No mass is seen. No midline deviation is evident. The ventricles and subarachnoid spaces are unremarkable. The partially visualized sinuses show are unremarkable. There is enlargement of the right external auditory meatus, in keeping with history of prior surgery. The partly defined orbits are normal. The rest of the skull base is unremarkable. IMPRESSION- 1. No acute bleed evident. 2. Previous surgery involving the right external auditory meatus; otherwise unremarkable brain CT. Reading Radiologist- BENJY TRIPLETT MD Releasing Radiologist- BENJY TRIPLETT MD Released Date Time- 10/14/071625 Negative Spotter- GUNNAR ADM- BE BLANKENSHIP- [facility] REF- HARDIK- TIAN ALTAMIRANO- BE BLANKENSHIP SCP- Be Blankenship MD CT ORDERABLES * DRUG SCREEN MEDICAL 8 PANEL (10/02/2007 6:37 AM CDT) Amphetamines Screen Urine Not Detected 1000 ng/ml cutoff ng/mL [facility] Barbiturates Screen Urine Not Detected 300 ng/mL cutoff ng/mL [facility] Benzodiazepines Screen Urine Not Detected 300 ng/mL cutoff ng/mL [facility] Cannabinoids Screen Urine Not Detected 20 ng/mL cutoff ng/mL [facility] Cocaine Screen Urine Not Detected 300 ng/mL cutoff ng/mL [facility] Alcohol Screen Urine Not detected 20 mg/dL cutoff mg/dL [facility] Opiate Screen Urine Not Detected 300 ng/mL Cutoff ng/mL [facility] Phencyclidine Screen Urine Not Detected 25 ng/mL cutoff ng/mL [facility] Creatinine Urine 101.1 mg/dL [facility] 10/02/2007 6:37 AM CDT Be Blankenship MD LAB - URINE CHEMISTR Y ORDERABLES Performing Organization Address City/[facility]/ZIP Co de Phone Number [facility] [address] [place] [address] * MIYA BLOOD SCREEN (09/30/2007 8:50 PM CDT) MIYA Negative Negative [facility] 09/30/2007 8:50 PM CDT Narrative Resulting Agency Comment Performed By [facility] ? [address] ? [place] [address] Tian Altamirano LAB - CHEMISTRY ORDE RABLES Performing Organization Address [facility] Co de Phone Number [facility] [address] [place] [address] * VITAMIN B12 (09/30/2007 8:50 PM CDT) Vitamin B12 563 211 - 911 pg/mL [facility] 09/30/2007 8:50 PM CDT Narrative Resulting Agency Comment Performed By [facility] ? [address] ? [place] [address] Tian Altamirano LAB - CHEMISTRY [address] [facility] [address] [place] [address] Care Teams Recreation Therapy Teacher Relationship Specialty Start Date End Date Darwin Quintanilla MD PCP - General Internal Medicine 04/05/12
--- OUTSIDE RECORDS SUMMARY | 2024-05-14 22:13 | XMS_ITS | Encounter Summary ---
Author Organization [facility] HealthCare Address [address] [place] [address] Phone Care Team Providers Care Corn Grower Name Role Phone Provider, None Primary Care Provider Unavailabl e Encounter Details Date Type Department Care Team (Late st Contact Info) Description 04/29/2024 Lab Requisition [facility] Laboratory Services 1 [place] [address] Provider, Not On File [place] Other exterminator helper termite (current) drug therapy; Major depressive disorder, recurrent, [...] WITH AUTO DIFFERENTIAL Routine 04/29/2024 6:34 AM PRIVATE INVESTIGATOR Other exterminator helper termite (current) drug therapy Major depressive disorder, recurrent, mild (HCC) Schizophrenia, unspecified (HCC) COMPLETE BLOOD COUNT (CBC) WITH DIFF Routine 04/29/2024 6:34 AM PRIVATE INVESTIGATOR Other exterminator helper termite (current) drug therapy Major depressive disorder, recurrent, mild (HCC) Schizophrenia, unspecified (HCC) documented in this encounter Results * (ABNORMAL) CBC WITH AUTO DIFFERENTIAL (04/29/2024 6:34 AM PRIVATE INVESTIGATOR) [facility] WBC 5.44 4.00 - 12.00 10(3)/mcL 04/29/2024 8:13 AM [facility] RBC 4.38(L) 4.40 - 5.80 10(6)/mcL 04/29/2024 8:13 AM [facility] HEMOGLOBIN (HGB) 13.4 13.0 - 16.5 g/dL 04/29/2024 8:13 AM [facility] HEMATOCRIT (HCT) 39.9 38.0 - 50.0 % 04/29/2024 8:13 AM [facility] MCV 91.1 82.0 - 96.0 fL 04/29/2024 8:13 AM [facility] MCH 30.6 26.0 - 32.0 pg 04/29/2024 8:13 AM [facility] MCHC 33.6 31.0 - 36.0 g/dL 04/29/2024 8:13 AM [facility] PLATELET COUNT 181 140 - 440 10(3)/mcL 04/29/2024 8:13 AM [facility] RDW 12.1 11.8 - 15.5 % 04/29/2024 8:13 AM [facility] MPV 9.5 8.0 - 12.6 fL 04/29/2024 8:13 AM [facility] NEUTROPHILS 54.6 40.0 - 68.0 % 04/29/2024 8:13 AM [facility] LYMPHOCYTES 17.8(L) 19.0 - 49.0 % 04/29/2024 8:13 AM [facility] MONOCYTES 16.9(H) 3.0 - 13.0 % 04/29/2024 8:13 AM [facility] EOSINOPHILS 10.3(H) 0.0 - 8.0 % 04/29/2024 8:13 AM [facility] BASOPHILS 0.4 0.0 - 1.0 % 04/29/2024 8:13 AM PRIVATE INVESTIGATOR [facility] ABSOLUTE NEUTROPHILS 2.97 1.40 - 5.30 10(3)/[facility] 04/29/2024 8:13 AM PRIVATE INVESTIGATOR [facility] ABSOLUTE LYMPHOCYTES 0.97 0.90 - 3.30 10(3)/[facility] 04/29/2024 8:13 AM PRIVATE INVESTIGATOR [facility] ABSOLUTE MONOCYTES 0.92(H) 0.10 - 0.90 10(3)/[facility] 04/29/2024 8:13 AM PRIVATE INVESTIGATOR [facility] ABSOLUTE EOSINOPHIL 0.56(H) 0.00 - 0.50 10(3)/[facility] 04/29/2024 8:13 AM [facility] ABSOLUTE BASOPHILS 0.02 0.00 - 0.10 10(3)/[facility] 04/29/2024 8:13 AM [facility] NRBC PER 100 WBC 0 04/29/19 25 8:13 AM [facility] Blood Venipuncture / Unknown 04/29/2024 6:34 AM PRIVATE INVESTIGATOR 04/29/2024 7:59 AM PRIVATE INVESTIGATOR us Not On File Provider HEMATOLOGY ORDERABLES Final Result [facility] [address] [place] [address] documented in this encounter Visit Diagnoses Diagnosis Other mcc (current) drug therapy Major depressive disorder, recurrent, mild (HCC) Major depressive disorder, recurrent episode, mild Schizophrenia, unspecified (HCC) documented in this encounter Care Teams Corn Grower Relationship Specialty Start Date End Date Provider, None [place] PCP - General 03/08/24 documented as of this encounter
--- OUTSIDE RECORDS SUMMARY | 2024-05-14 22:13 | XMS_ITS | Encounter Summary ---
Author Organization [facility] HealthCare Address [address] [place] [address] Phone Care Team Providers Care Dye Mixer Name Role Phone Felisha Yu MD Primary Care Provider [phone] Jose Allan MD Primary Care Provider [phone] Provider, None Primary Care Provider Unavailabl e Encounter Details Date Type Department Care Team (Late st Contact Info) Description 01/10/2022 Lab Requisition [facility] Laboratory Services 1 [place] [address] Medhat Briggs MD [address] [place] [address] [address] [place] [address] Encounter for screening for COVID-19 Social History [...] Associated Diagnosis Comments SARS-COV-2 BY MOLECULAR Routine 01/10/2022 8:00 AM CDT Encounter for screening for COVID-19 documented in this encounter Results * SARS-COV-2 BY MOLECULAR (01/10/2022 8:00 AM CDT) SARSCOV2 NOT DETECTED (Referen ce Range for this test is Not Detected ) [facility] THERMOFISHER FAST DX 01/11/2022 10:23 AM CDT [facility] Comment:This test was perfor med by a RT-PCR method. Other Non-Phlebotomy Collection / Unknown 01/10/2022 8:00 AM CDT 01/10/2022 10:29 AM CDT Narrative [facility] - 01/11/2022 10:23 AM CDT Authorized Fact Sheets about this test for providers and patients are available at: https://www.fda.gov/medical-devices/kpcgxgikt-tyhwxxshfq-przelai-devices/emergen -us e-authorizations us Medhat Briggs MD MICROBIOLOGY - GENERAL ORDERAB LES Final Result [facility] [address] [place] [address], documented in this encounter Visit Diagnoses Diagnosis Encounter for screening for COVID-19 documented in this encounter Additional Health Concerns Infection Onset Date Last Indicated Resolved Time COVID - 19 11/01/2021 02/28/2022 03/10/2022 12:1 6 AM [facility] COVID - 19 04/25/2022 07/04/2022 07/14/2022 12:1 6 AM CDT documented as of this encounter Care Teams Dye Mixer Relationship Specialty Start Date End Date Felisha Yu MD PCP - General Family Medicine 07/20/15 04/21/22 Jose Allan MD PCP - General Family Medicine 04/22/22 07/14/23 Provider, None [place] PCP - General 03/08/24 documented as of this encounter
--- OUTSIDE RECORDS SUMMARY | 2024-05-14 22:13 | XMS_ITS | Encounter Summary ---
Author Organization [facility] Address [address] [place] [address] Phone Care Team Providers Care Pinked Edge Sewing Machine Operator Name Role Phone Jose Allan MD Primary Care Provider [phone] Provider, None Primary Care Provider Unavailabl e Encounter Details Date Type Department Care Team (Late st Contact Info) Description 05/09/2022 Lab Requisition [facility] Laboratory Services 1 [place] [address] Medhat Briggs MD [address] [place] [address] [facility] [address] [place] [address] Encounter for screening for COVID-19 Social History [...] Associated Diagnosis Comments SARS-COV-2 BY MOLECULAR Routine 05/09/2022 7:37 AM ROUGE SIFTER AND MILLER Encounter for screening for COVID-19 documented in this encounter Results * SARS-COV-2 BY MOLECULAR (05/09/2022 7:37 AM ROU[employer]TER [employer] MILLER) SARSCOV2 NOT DETECTED (Referen ce Range for this test is Not Detected ) [facility] THERMOFISHER FAST DX 05/09/2022 8:36 PM ROUGE SIFTER [employer] MILLER [facility] Comment:This test was perfor med by a RT-PCR method. Other COVID 19 Collection / Unknown 05/09/2022 7:37 AM [employer] 05/09/2022 9:58 AM ROU[employer]TER [employer] M[employer]ER Narrative [facility] - 05/09/2022 8:36 PM [employer] Authorized Fact Sheets about this test for providers and patients are available at: https://www.fda.gov/medical-devices/wsqhxxdxt-jtlqguxohy-ezncgdo-devices/emergen -us e-authorizations us Medhat Briggs MD MICROBIOLOGY - GENERAL ORDERAB LES Final Result [facility] [address] [place] [address], documented in this encounter Visit Diagnoses Diagnosis Encounter for screening for COVID-19 documented in this encounter Additional Health Concerns Infection Onset Date Last Indicated Resolved Time COVID - 19 04/25/2022 07/04/2022 07/14/2022 12:1 6 AM CDT documented as of this encounter Care Teams Pinked Edge Sewing Machine Operator Relationship Specialty Start Date End Date Jose Allan MD PCP - General Family Medicine 04/22/22 07/14/23 Provider, None [place] PCP - General 03/08/24 documented as of this encounter
--- OUTSIDE RECORDS SUMMARY | 2024-05-14 22:13 | XMS_ITS | Encounter Summary ---
Author Organization [facility] Address [address] [place] [address] Phone Care Team Providers Care Portable Irrigation Operator Name Role Phone Jose Allan MD Primary Care Provider [phone] Provider, None Primary Care Provider Unavailabl e Encounter Details Date Type Department Care Team (Late st Contact Info) Description 06/20/2022 Lab Requisition [facility] Laboratory Services 1 [place] [address] Medhat Briggs MD [address] [place] [address] [facility] [address] [place] [address] Encounter for screening for COVID-19 Social History [...] Associated Diagnosis Comments SARS-COV-2 BY MOLECULAR Routine 06/20/2022 7:57 AM FIRESTOP/CONTAINMENT WORKER Encounter for screening for COVID-19 documented in this encounter Results * SARS-COV-2 BY MOLECULAR (06/20/2022 7:57 AM FIRESTOP/CONTAINMENT WORKER) SARSCOV2 NOT DETECTED (Referen ce Range for this test is Not Detected ) [facility] THERMOFISHER FAST DX 06/21/2022 8:01 PM FIRESTOP/CONTAINMENT WORKER [facility] Comment:This test was perfor med by a RT-PCR method. Other Non-Phlebotomy Collection / Unknown 06/20/2022 7:57 AM FIRESTOP/CONTAINMENT WORKER 06/20/2022 10:35 AM FIRESTOP/CONTAINMENT WORKER Narrative [facility] - 06/21/2022 8:01 PM FIRESTOP/CONTAINMENT WORKER Authorized Fact Sheets about this test for providers and patients are available at: https://www.fda.gov/medical-devices/uezycfzzp-fzimudzbju-xehxkui-devices/emergen -us e-authorizations us Medhat Briggs MD MICROBIOLOGY - GENERAL ORDERAB LES Final Result [facility] [address] [place] [address], documented in this encounter Visit Diagnoses Diagnosis Encounter for screening for COVID-19 documented in this encounter Additional Health Concerns Infection Onset Date Last Indicated Resolved Time COVID - 19 04/25/2022 07/04/2022 07/14/2022 12:1 6 AM CDT documented as of this encounter Care Teams Portable Irrigation Operator Relationship Specialty Start Date End Date Jose Allan MD PCP - General Family Medicine 04/22/22 07/14/23 Provider, None [place] PCP - General 03/08/24 documented as of this encounter
--- OUTSIDE RECORDS SUMMARY | 2024-05-14 22:13 | XMS_ITS | Encounter Summary ---
Author Organization [facility] Health[facility] Address [address] [facility] [place] [address] Phone Care Team Providers Care Lapel Baster Name Role Phone Felisha Yu MD Primary Care Provider [phone] Jose Allan MD Primary Care Provider [phone] Provider, None Primary Care Provider Unavailabl e Encounter Details Date Type Department Care Team (Late st Contact Info) Description 01/17/2022 Lab Requisition [facility] Laboratory Services 1 [place] [address] Medhat Briggs MD [address] [place] [address] [address] [place] [address] Encounter for screening for COVID-19 Social History [...] Associated Diagnosis Comments SARS-COV-2 BY MOLECULAR Routine 01/17/2022 7:55 AM CDT Encounter for screening for COVID-19 documented in this encounter Results * SARS-COV-2 BY MOLECULAR (01/17/2022 7:55 AM CDT) SARSCOV2 NOT DETECTED (Referen ce Range for this test is Not Detected ) [facility] THERMOFISHER FAST DX 01/18/2022 12:09 AM CDT [facility] Comment:This test was perfor med by a RT-PCR method. Other Non-Phlebotomy Collection / Unknown 01/17/2022 7:55 AM CDT 01/17/2022 11:57 AM CDT Narrative [facility] - 01/18/2022 12:09 AM CDT Authorized Fact Sheets about this test for providers and patients are available at: https://www.fda.gov/medical-devices/vpetqcutt-ddnjnlgedo-hwansbt-devices/emergen -us e-authorizations us Medhat Briggs MD MICROBIOLOGY - GENERAL ORDERAB LES Final Result [facility] [address] [place] [address], documented in this encounter Visit Diagnoses Diagnosis Encounter for screening for COVID-19 documented in this encounter Additional Health Concerns Infection Onset Date Last Indicated Resolved Time COVID - 19 11/01/2021 02/28/2022 03/10/2022 12:1 6 AM PATIENT DAY COORDINATOR COVID - 19 04/25/2022 07/04/2022 07/14/2022 12:1 6 AM CDT documented as of this encounter Care Teams Lapel Baster Relationship Specialty Start Date End Date Felisha Yu MD PCP - General Family Medicine 07/20/15 04/21/22 Jose Allan MD PCP - General Family Medicine 04/22/22 07/14/23 Provider, None [place] PCP - General 03/08/24 documented as of this encounter
--- OUTSIDE RECORDS SUMMARY | 2024-05-14 22:13 | XMS_ITS | Encounter Summary ---
Author Organization [facility] Health[facility] Address [address] [facility] [place] [address] Phone Care Team Providers Care Battery Assembler Dry Cell Name Role Phone Felisha Yu MD Primary Care Provider [phone] Jose Allan MD Primary Care Provider [phone] Provider, None Primary Care Provider Unavailabl e Encounter Details Date Type Department Care Team (Late st Contact Info) Description 01/31/2022 Lab Requisition [facility] Laboratory Services [address] [place] [address] Medhat Briggs MD [address] [place] [address] [address] [place] [address] Encounter for screening for COVID-19 Social History [...] Associated Diagnosis Comments SARS-COV-2 BY MOLECULAR Routine 01/31/2022 8:04 AM CDT Encounter for screening for COVID-19 documented in this encounter Results * SARS-COV-2 BY MOLECULAR (01/31/2022 8:04 AM CDT) SARSCOV2 NOT DETECTED (Referen ce Range for this test is Not Detected ) [facility] THERMOFISHER FAST DX 02/01/2022 12:18 AM CDT [facility] Comment:This test was perfor med by a RT-PCR method. Other No Phlebotomy Charged / Unknown 01/31/2022 8:04 AM CDT 01/31/2022 11:36 AM CDT Narrative [facility] - 02/01/2022 12:18 AM CDT Authorized Fact Sheets about this test for providers and patients are available at: https://www.fda.gov/medical-devices/jlhnzuiay-jfmdvtgyem-frfctyl-devices/emergen -us e-authorizations us Medhat Briggs MD MICROBIOLOGY - GENERAL ORDERAB LES Final Result [facility] [address] [place] [address], documented in this encounter Visit Diagnoses Diagnosis Encounter for screening for COVID-19 documented in this encounter Additional Health Concerns Infection Onset Date Last Indicated Resolved Time COVID - 19 11/01/2021 02/28/2022 03/10/2022 12:1 6 AM ADVANCED MANUFACTURING VICE PRESIDENT COVID - 19 04/25/2022 07/04/2022 07/14/2022 12:1 6 AM CDT documented as of this encounter Care Teams Battery Assembler Dry Cell Relationship Specialty Start Date End Date Felisha Yu MD PCP - General Family Medicine 07/20/15 04/21/22 Jose Allan MD PCP - General Family Medicine 04/22/22 07/14/23 Provider, None [place] PCP - General 03/08/24 documented as of this encounter
--- OUTSIDE RECORDS SUMMARY | 2024-05-14 22:13 | XMS_ITS | Encounter Summary ---
Author Organization [facility] Address [address] [place] [address] Phone Care Team Providers Care Supply Chain Tech Name Role Phone Jose Allan MD Primary Care Provider [phone] Provider, None Primary Care Provider Unavailabl e Encounter Details Date Type Department Care Team (Late st Contact Info) Description 06/06/2022 Lab Requisition [facility] Laboratory Services 1 [place] [address] Medhat Briggs MD [address] [place] [address] [facility] [address] [place] [address] Encounter for screening for COVID-19 Social History [...] Associated Diagnosis Comments SARS-COV-2 BY MOLECULAR Routine 06/06/2022 8:11 AM SENIOR PRINCIPAL ARCHITECT Encounter for screening for COVID-19 documented in this encounter Results * SARS-COV-2 BY MOLECULAR (06/06/2022 8:11 AM SENIOR PRINCIPAL ARCHITECT) SARSCOV2 NOT DETECTED (Referen ce Range for this test is Not Detected ) [facility] THERMOFISHER FAST DX 06/06/2022 8:07 PM SENIOR PRINCIPAL ARCHITECT [facility] Comment:This test was perfor med by a RT-PCR method. Other No Phlebotomy Charged / Unknown 06/06/2022 8:11 AM SENIOR PRINCIPAL ARCHITECT 06/06/2022 9:52 AM SENIOR PRINCIPAL ARCHITECT Narrative [facility] - 06/06/2022 8:07 PM SENIOR PRINCIPAL ARCHITECT Authorized Fact Sheets about this test for providers and patients are available at: https://www.fda.gov/medical-devices/rrytrxehu-luunsakxwj-seahpkx-devices/emergen -us e-authorizations us Medhat Briggs MD MICROBIOLOGY - GENERAL ORDERAB LES Final Result [facility] [address] [place] [address], documented in this encounter Visit Diagnoses Diagnosis Encounter for screening for COVID-19 documented in this encounter Additional Health Concerns Infection Onset Date Last Indicated Resolved Time COVID - 19 04/25/2022 07/04/2022 07/14/2022 12:1 6 AM CDT documented as of this encounter Care Teams Supply Chain Tech Relationship Specialty Start Date End Date Jose Allan MD PCP - General Family Medicine 04/22/22 07/14/23 Provider, None [place] PCP - General 03/08/24 documented as of this encounter
--- OUTSIDE RECORDS SUMMARY | 2024-05-14 22:13 | XMS_ITS | Encounter Summary ---
Author Organization [facility] Address [address] [facility] [place] [place] [address] Phone Care Team Providers Care Stock Sorter Name Role Phone Felisha Yu MD Primary Care Provider [phone] Jose Allan MD Primary Care Provider [phone] Provider, None Primary Care Provider Unavailabl e Encounter Details Date Type Department Care Team (Late st Contact Info) Description 02/28/2022 Lab Requisition [facility] Laboratory Services 1 [place] [address] Medhat Briggs MD [address] [place] [address] [address] [place] [address] Encounter for screening for COVID-19 Social History [...] Associated Diagnosis Comments SARS-COV-2 BY MOLECULAR Routine 02/28/2022 7:50 AM CHIEF OPERATING ENGINEER Encounter for screening for COVID-19 documented in this encounter Results * SARS-COV-2 BY MOLECULAR (02/28/2022 7:50 AM CHIEF OPERATING ENGINEER) SARSCOV2 NOT DETECTED (Referen ce Range for this test is Not Detected ) [facility] THERMOFISHER FAST DX 03/01/2022 4:42 AM CHIEF OPERATING ENGINEER [facility] Comment:This test was perfor med by a RT-PCR method. Other COVID 19 Collection / Unknown 02/28/2022 7:50 AM CHIEF OPERATING ENGINEER 02/28/2022 11:10 AM CHIEF OPERATING ENGINEER Narrative [facility] - 03/01/2022 4:42 AM CHIEF OPERATING ENGINEER Authorized Fact Sheets about this test for providers and patients are available at: https://www.fda.gov/medical-devices/tnwmupwpf-cwdvlbyxep-vngvzjl-devices/emergen -us e-authorizations us Medhat Briggs MD MICROBIOLOGY - GENERAL ORDERAB LES Final Result [facility] [address] [place] [id number], [place] documented in this encounter Visit Diagnoses Diagnosis Encounter for screening for COVID-19 documented in this encounter Additional Health Concerns Infection Onset Date Last Indicated Resolved Time COVID - 19 11/01/2021 02/28/2022 03/10/2022 12:1 6 AM CHIEF OPERATING ENGINEER COVID - 19 04/25/2022 07/04/2022 07/14/2022 12:1 6 AM CDT documented as of this encounter Care Teams Stock Sorter Relationship Specialty Start Date End Date Felisha Yu MD PCP - General Family Medicine 07/20/15 04/21/22 Jose Allan MD PCP - General Family Medicine 04/22/22 07/14/23 Provider, None [place] PCP - General 03/08/24 documented as of this encounter
--- OUTSIDE RECORDS SUMMARY | 2024-05-14 22:13 | XMS_ITS | Encounter Summary ---
Author Organization [facility] Address [address] [facility] [place] [place] [address] Phone Care Team Providers Care Filler Picker Name Role Phone Provider, None Primary Care Provider Unavailabl e Encounter Details Date Type Department Care Team (Late st Contact Info) Description 03/04/2024 Lab Requisition [facility] Laboratory Services 1 [place] [id number] Eli Moon MD [address] [facility] [place] [address] Other correction (current) drug therapy; Major depressive disorder, recurrent, [...] of this encounter Progress Notes * Eli oMon MD - 03/04/2024 8:28 AM CST Jossy wong patient; results will be reviewed at their clinic. SCRIPT APPLICATION DEVELOPER documented in this encounter Plan of Treatment Not on file documented as of this encounter Procedures Procedure Name Priority Date/Time Associated Diagnosis Comments CBC WITH AUTO DIFFERENTIAL Routine 03/04/2024 6:15 AM JAVASCRIPT APPLICATION DEVELOPER Other correction (current) drug therapy Major depressive disorder, recurrent, mild (HCC) Schizophrenia, unspecified (HCC) COMPLETE BLOOD COUNT (CBC) WITH DIFF Routine 03/04/2024 6:15 AM JAVASCRIPT APPLICATION DEVELOPER Other manager long term care (current) drug therapy Major depressive disorder, recurrent, mild (HCC) Schizophrenia, unspecified (HCC) documented in this encounter Results * (ABNORMAL) CBC WITH AUTO DIFFERENTIAL (03/04/2024 6:15 AM JAVASCRIPT APPLICATION DEVELOPER) WBC 5.45 4.00 - 12.00 10(3)/mcL 03/04/2024 8:58 AM [facility] RBC 4.58 4.40 - 5.80 10(6)/mcL 03/04/2024 8:58 AM [facility] HEMOGLOBIN (HGB) 13.9 13.0 - 16.5 g/dL 03/04/2024 8:58 AM [facility] HEMATOCRIT (HCT) 42.8 38.0 - 50.0 % 03/04/2024 8:58 AM [facility] MCV 93.4 82.0 - 96.0 fL 03/04/2024 8:58 AM [facility] MCH 30.3 26.0 - 32.0 pg 03/04/2024 8:58 AM [facility] MCHC 32.5 31.0 - 36.0 g/dL 03/04/2024 8:58 AM [facility] PLATELET COUNT 251 140 - 440 10(3)/mcL 03/04/2024 8:58 AM [facility] RDW 12.5 11.8 - 15.5 % 03/04/2024 8:58 AM [facility] MPV 9.2 8.0 - 12.6 fL 03/04/2024 8:58 AM [facility] NEUTROPHILS 47.4 40.0 - 68.0 % 03/04/2024 8:58 AM [facility] LYMPHOCYTES 33.0 19.0 - 49.0 % 03/04/2024 8:58 AM JAVASCRIPT APPLICATION DEVELOPER [facility] MONOCYTES 9.0 3.0 - 13.0 % 03/04/2024 8:58 AM JAVASCRIPT APPLICATION DEVELOPER [facility] EOSINOPHILS 9.7(H) 0.0 - 8.0 % 03/04/2024 8:58 AM JAVASCRIPT APPLICATION DEVELOPER [facility] BASOPHILS 0.9 0.0 - 1.0 % 03/04/2024 8:58 AM JAVASCRIPT APPLICATION DEVELOPER [facility] ABSOLUTE NEUTROPHILS 2.58 1.40 - 5.30 10(3)/[facility] 03/04/2024 8:58 AM JAVASCRIPT APPLICATION DEVELOPER [facility] ABSOLUTE LYMPHOCYTES 1.80 0.90 - 3.30 10(3)/[facility] 03/04/2024 8:58 AM JAVASCRIPT APPLICATION DEVELOPER [facility] ABSOLUTE MONOCYTES 0.49 0.10 - 0.90 10(3)/[facility] 03/04/2024 8:58 AM JAVASCRIPT APPLICATION DEVELOPER [facility] ABSOLUTE EOSINOPHIL 0.53(H) 0.00 - 0.50 10(3)/[facility] 03/04/2024 8:58 AM JAVASCRIPT APPLICATION DEVELOPER [facility] ABSOLUTE BASOPHILS 0.05 0.00 - 0.10 10(3)/[facility] 03/04/2024 8:58 AM JAVASCRIPT APPLICATION DEVELOPER [facility] NRBC PER 100 WBC 0 03/04/20 8:58 AM [facility] Blood Venipuncture / Unknown 03/04/2024 6:15 AM JAVASCRIPT APPLICATION DEVELOPER 03/04/2024 8:28 AM JAVASCRIPT APPLICATION DEVELOPER us Eli Moon MD HEMATOLOGY ORDERABLES Kim l Result [facility] [address] [place] [address] documented in this encounter Visit Diagnoses Diagnosis Other correction (current) drug therapy Major depressive disorder, recurrent, mild (HCC) Major depressive disorder, recurrent episode, mild Schizophrenia, unspecified (HCC) documented in this encounter Care Teams Filler Picker Relationship Specialty Start Date End Date Provider, None [place] PCP - General 03/08/24 documented as of this encounter
--- OUTSIDE RECORDS SUMMARY | 2024-05-14 22:13 | XMS_ITS | Encounter Summary ---
Author Organization [facility] Address [address] [place] [address] Phone Care Team Providers Care Athletic Monitor Name Role Phone Jose Allan MD Primary Care Provider [phone] Provider, None Primary Care Provider Unavailabl e Encounter Details Date Type Department Care Team (Late st Contact Info) Description 06/13/2022 Lab Requisition [facility] Laboratory Services 1 [place] [address] Medhat Briggs MD [address] [place] [address] [facility] [address] [place] [address] Encounter for screening for COVID-19 Social History [...] Associated Diagnosis Comments SARS-COV-2 BY MOLECULAR Routine 06/13/2022 7:55 AM PYROTECHNIST Encounter for screening for COVID-19 documented in this encounter Results * SARS-COV-2 BY MOLECULAR (06/13/2022 7:55 AM PYROTECHNIST) SARSCOV2 NOT DETECTED (Referen ce Range for this test is Not Detected ) [facility] THERMOFISHER FAST DX 06/14/2022 11:35 AM PYROTECHNIST [facility] Comment:This test was perfor med by a RT-PCR method. Other Non-Phlebotomy Collection / Unknown 06/13/2022 7:55 AM PYROTECHNIST 06/13/2022 10:21 AM PYROTECHNIST Narrative [facility] - 06/14/2022 11:35 AM PYROTECHNIST Authorized Fact Sheets about this test for providers and patients are available at: https://www.fda.gov/medical-devices/nzmktmvhg-xwbkkbzquc-dzcgyln-devices/emergen -us e-authorizations us Medhat Briggs MD MICROBIOLOGY - GENERAL ORDERAB LES Final Result [facility] [address] [place] [address], documented in this encounter Visit Diagnoses Diagnosis Encounter for screening for COVID-19 documented in this encounter Additional Health Concerns Infection Onset Date Last Indicated Resolved Time COVID - 19 04/25/2022 07/04/2022 07/14/2022 12:1 6 AM CDT documented as of this encounter Care Teams Athletic Monitor Relationship Specialty Start Date End Date Jose Allan MD PCP - General Family Medicine 04/22/22 07/14/23 Provider, None [place] PCP - General 03/08/24 documented as of this encounter
--- OUTSIDE RECORDS SUMMARY | 2024-05-14 22:13 | XMS_ITS | Encounter Summary ---
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; Major depressive disorder, recurrent, mild (HCC); Schizophrenia, unspecified (HCC); Hormone replacement therapy; Encounter for general adult medical examination without abnormal findings Social History Tobacco Use Types Packs/Day Years [...] Diagnosis Comments CBC WITH AUTO DIFFERENTIAL Routine 04/01/2024 5:55 AM MINIATURE MODEL MAKER Other longterm (current) drug therapy Major depressive disorder, recurrent, mild (HCC) Schizophrenia, unspecified (HCC) COMPLETE BLOOD COUNT (CBC) WITH DIFF Routine 04/01/2024 5:55 AM MINIATURE MODEL MAKER Other longterm (current) drug therapy Major depressive disorder, recurrent, mild (HCC) Schizophrenia, unspecified (HCC) documented in this encounter Results * (ABNORMAL) CBC WITH AUTO DIFFERENTIAL (04/01/2024 5:55 AM [facility]) [facility] Signature WBC 5.84 4.00 - 12.00 10(3)/mcL 04/01/2024 8:12 AM [facility] RBC 4.38(L) 4.40 - 5.80 10(6)/mcL 04/01/2024 8:12 AM [facility] HEMOGLOBIN (HGB) 13.3 13.0 - 16.5 g/dL 04/01/2024 8:12 AM [facility] HEMATOCRIT (HCT) 40.5 38.0 - 50.0 % 04/01/2024 8:12 AM [facility] MCV 92.5 82.0 - 96.0 fL 04/01/2024 8:12 AM [facility] MCH 30.4 26.0 - 32.0 pg 04/01/2024 8:12 AM [facility] MCHC 32.8 31.0 - 36.0 g/dL 04/01/2024 8:12 AM [facility] PLATELET COUNT 251 140 - 440 10(3)/mcL 04/01/2024 8:12 AM [facility] RDW 12.5 11.8 - 15.5 % 04/01/2024 8:12 AM [facility] MPV 8.9 8.0 - 12.6 fL 04/01/2024 8:12 AM [facility] NEUTROPHILS 53.2 40.0 - 68.0 % 04/01/2024 8:12 AM [facility] LYMPHOCYTES 25.7 19.0 - 49.0 % 04/01/2024 8:12 AM [facility] MONOCYTES 11.0 3.0 - 13.0 % 04/01/2024 8:12 AM [facility] EOSINOPHILS 9.1(H) 0.0 - 8.0 % 04/01/2024 8:12 AM [facility] BASOPHILS 1.0 0.0 - 1.0 % 04/01/2024 8:12 AM MINIATURE MODEL MAKER [facility] ABSOLUTE NEUTROPHILS 3.11 1.40 - 5.30 10(3)/[facility] 04/01/2024 8:12 AM MINIATURE MODEL MAKER [facility] ABSOLUTE LYMPHOCYTES 1.50 0.90 - 3.30 10(3)/[facility] 04/01/2024 8:12 AM MINIATURE MODEL MAKER [facility] ABSOLUTE MONOCYTES 0.64 0.10 - 0.90 10(3)/[facility] 04/01/2024 8:12 AM MINIATURE MODEL MAKER [facility] ABSOLUTE EOSINOPHIL 0.53(H) 0.00 - 0.50 10(3)/[facility] 04/01/2024 8:12 AM [facility] ABSOLUTE BASOPHILS 0.06 0.00 - 0.10 10(3)/[facility] 04/01/2024 8:12 AM [facility] NRBC PER 100 WBC 0 04/01/20 8:12 AM [facility] Blood Venipuncture / Unknown 04/01/2024 5:55 AM MINIATURE MODEL MAKER 04/01/2024 7:55 AM MINIATURE MODEL MAKER us Not On File Provider HEMATOLOGY ORDERABLES Final Result Performing Organization Address City/State/[facility] Co de Phone Number [facility] [address] [place] [address] documented in this encounter Visit Diagnoses Diagnosis Other longterm (current) drug therapy Major depressive disorder, recurrent, mild (HCC) Major depressive disorder, recurrent episode, mild Schizophrenia, unspecified (HCC) Hormone replacement therapy Encounter for general adult medical examination without abnormal findings Routine general medical examination at a health care facility documented in this encounter Care Teams Risk And Compliance Analytics Director Relationship Specialty Start Date End Date Provider, None [place] PCP - General 03/08/24 documented as of this encounter
--- OUTSIDE RECORDS SUMMARY | 2024-05-14 22:13 | XMS_ITS | Encounter Summary ---
Author Organization [facility] Address [address] [facility] [address] [place] [address] Phone Care Team Providers Care Speed Operator Name Role Phone Provider, None Primary Care Provider Unavailabl e Encounter Details Date Type Department Care Team (Late st Contact Info) Description 03/11/2024 Lab Requisition [facility] Laboratory Services 1 [place] [id number] Eli Moon MD [address] 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 Blood sugar, kidney tests, and liver tests are all normal. Cholesterol and triglycerides are normal. 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 Hypothyroidism, unspecified documented in this encounter Results * LIPID PANEL (03/11/2024 7:03 AM ACADEMIC ADVISING DIRECTOR) CHOLESTEROL 177 <200 mg/dL 03/11/2024 9:02 AM [facility] TRIGLYCERIDES 93 <150 mg/dL 03/11/2024 9:02 AM ACADEMIC ADVISING DIRECTOR [facility] HDL CHOLESTEROL 74 >40 mg/dL 9:02 AM [facility] LDL 84 <130 mg/dL 03/11/2024 9:02 AM [facility] VLDL 19 10 - 50 mg/dL 03/11/2024 9:02 AM [facility] CHOL/HDL RATIO 2.4 0.0 - 4.4 03/11/2024 9:02 AM [facility] NON-HDL CHOLESTEROL 103 <130 mg/dL 03/11/2024 9:02 AM [facility] Blood Venipuncture / Unknown 03/11/2024 7:03 AM ACADEMIC ADVISING DIRECTOR 03/11/2024 8:16 AM ACADEMIC ADVISING DIRECTOR Eli Moon MD CHEMISTRY ORDERABLES Final Result [facility] [address] [place] [address] * (ABNORMAL) CMP (COMPREHENSIVE METABOLIC PANEL) (03/11/2024 7:03 AM ACADEMIC ADVISING DIRECTOR) SODIUM 144 136 - 145 mmol/L 03/11/2024 9:02 AM [facility] POTASSIUM 4.0 3.5 - 5.1 mmol/L 03/11/2024 9:02 AM [facility] CHLORIDE 110(H) 98 - 107 mmol/L 03/11/2024 9:02 AM [facility] CO2, VENOUS 22 22 - 30 mmol/L 03/11/2024 9:02 AM [facility] ANION GAP 16.0 <18.0 mmol/L 03/11/2024 9:02 AM [facility] GLUCOSE 74 70 - 99 mg/dL 03/11/2024 9:02 AM [facility] BUN 16 9 - 21 mg/dL 03/11/2024 9:02 AM [facility] CREATININE, BLOOD 0.78 0.70 - 1.30 mg/dL 03/11/2024 9:02 AM [facility] BUN/CREATININE RATIO 21(H) 12 - 20 ratio 03/11/2024 9:02 AM [facility] TOTAL PROTEIN 6.6 6.3 - 8.2 g/dL 03/11/2024 9:02 AM [facility] ALBUMIN 4.4 3.5 - 5.0 g/dL 03/11/2024 9:02 AM [facility] A/G RATIO 2.0 1.0 - 2.2 03/11/2024 9:02 AM [facility] CALCIUM 9.4 8.7 - 10.5 mg/dL 03/11/2024 9:02 AM [facility] T BILI 0.6 0.2 - 1.2 mg/dL 03/11/2024 9:02 AM [facility] SGOT (AST) 19 5 - 34 U/L 03/11/2024 9:02 AM [facility] SGPT (ALT) 19 0 - 55 U/L 03/11/2024 9:02 AM [facility] ALKALINE PHOSPHATASE 37(L) 40 - 150 U/L 03/11/2024 9:02 AM [facility] GFR, ESTIMATED >60 >=60 03/11/2024 9:02 AM [facility] Comment: Creatinine Clearance is the preferred criteria for selecting drug dose adjustments in renally impaired patients. ??The GFR is provided as additional pertinent clinical information. GFR is reported in mL/min/1.73 sq m. Calculation based on the Chronic Kidney Disease Epidemiology Collaboration (CKD- EPI) equation refit without adjustment for race. GFR, EST. >60 >=60 024 9:02 AM ACADEMIC ADVISING DIRECTOR [facility] GFR, EST. NONAFRICAN >60 >=60 03/11/2024 9:02 AM ACADEMIC ADVISING DIRECTOR [facility] Blood Venipuncture / Unknown 03/11/2024 7:03 AM ACADEMIC ADVISING DIRECTOR 03/11/2024 8:16 AM ACADEMIC ADVISING DIRECTOR us Eli Moon MD CHEMISTRY ORDERABLES Final Result [facility] [address] [place] [address] documented in this encounter Visit Diagnoses Diagnosis Other skilled nursing (current) drug therapy Hypothyroidism, unspecified documented in this encounter Care Teams Speed Operator Relationship Specialty Start Date End Date Provider, None [place] PCP - General 03/08/24 documented as of this encounter
--- OUTSIDE RECORDS SUMMARY | 2024-05-14 22:14 | XMS_ITS | Encounter Summary ---
Author Organization [facility] Address [address] [place] [address] Phone Care Team Providers Care Preforming Machine Operator Name Role Phone Felisha Yu MD Primary Care Provider [phone] Jose Allan MD Primary Care Provider [phone] Provider, None Primary Care Provider Unavailabl e Encounter Details Date Type Department Care Team (Late st Contact Info) Description 01/11/2021 Lab Requisition [facility] Laboratory Services [address] [place] [address] Medhat Briggs MD [address] [place] [address] [address] [place] [address] Encounter for screening for COVID-19 Social History [...] Associated Diagnosis Comments SARS-COV-2 BY MOLECULAR Routine 01/11/2021 9:16 AM CDT documented in this encounter Results * SARS-COV-2 BY MOLECULAR (01/11/2021 9:16 AM CDT) SARSCOV2 NOT DETECTED (Referen ce Range for this test is Not Detected ) [facility] THERMOFISHER FAST DX 01/12/2021 8:27 AM CDT [facility] Comment:This test was perfor med by a RT-PCR method. Other No Phlebotomy Charged / Unknown 01/11/2021 9:16 AM CDT 01/11/2021 11:32 AM CDT Narrative [facility] - 01/12/2021 8:27 AM CDT Authorized Fact Sheets about this test for providers and patients are available at: https://www.fda.gov/medical-devices/iypndbgwb-hfrnzzviwt-tqavcwd-devices/emergen cy-us e-authorizations us Medhat Briggs MD MICROBIOLOGY - GENERAL ORDERAB LES Final Result [facility] [address] [place] [address], documented in this encounter Visit Diagnoses Diagnosis Encounter for screening for COVID-19 documented in this encounter Additional Health Concerns Infection Onset Date Last Indicated Resolved Time COVID - 19 01/11/2021 06/28/2021 07/18/2021 12:1 6 AM CDT COVID - 19 07/19/2021 10/18/2021 10/28/2021 12:1 6 AM CDT COVID - 19 11/01/2021 02/28/2022 03/10/2022 12:1 6 AM PELT SALTER COVID - 19 04/25/2022 07/04/2022 07/14/2022 12:1 6 AM CDT documented as of this encounter Care Teams Preforming Machine Operator Relationship Specialty Start Date End Date Felisha Yu MD PCP - General Family Medicine 07/20/15 04/21/22 Jose Allan MD PCP - General Family Medicine 04/22/22 07/14/23 Provider, None [place] PCP - General 03/08/24 documented as of this encounter
--- OUTSIDE RECORDS SUMMARY | 2024-05-14 22:14 | XMS_ITS | Encounter Summary ---
Author Organization [facility] Address [address] [place] [address] Phone Care Team Providers Care Bench Worker Binding Name Role Phone Felisha Yu MD Primary Care Provider [phone] Jose Allan MD Primary Care Provider [phone] Provider, None Primary Care Provider Unavailabl e Encounter Details Date Type Department Care Team (Late st Contact Info) Description 04/05/2021 Lab Requisition [facility] Laboratory Services [address] [place] [address] Medhat Briggs MD [address] [place] [address] [address] [place] [address] Encounter for screening for COVID-19 Social History [...] Associated Diagnosis Comments SARS-COV-2 BY MOLECULAR Routine 04/05/2021 7:57 AM MD ALLERGY IMMUNOLOGY Encounter for screening for COVID-19 documented in this encounter Results * SARS-COV-2 BY MOLECULAR (04/05/2021 7:57 AM MD ALLERGY IMMUNOLOGY) SARSCOV2 NOT DETECTED (Referen ce Range for this test is Not Detected ) [facility] THERMOFISHER FAST DX 04/06/2021 6:00 PM MD ALLERGY IMMUNOLOGY [facility] Comment:This test was perfor med by a RT-PCR method. Other No Phlebotomy Charged / Unknown 04/05/2021 7:57 AM MD ALLERGY IMMUNOLOGY 04/05/2021 11:22 AM MD ALLERGY IMMUNOLOGY Narrative [facility] - 04/06/2021 6:00 PM MD ALLERGY IMMUNOLOGY Authorized Fact Sheets about this test for providers and patients are available at: https://www.fda.gov/medical-devices/vhwojhdjp-qosvxdbszp-nxsssus-devices/emergen cy-us e-authorizations us Medhat Briggs MD MICROBIOLOGY - GENERAL ORDERAB LES Final Result [facility] [address] [place] [address], [place] documented in this encounter Visit Diagnoses Diagnosis Encounter for screening for COVID-19 documented in this encounter Additional Health Concerns Infection Onset Date Last Indicated Resolved Time COVID - 19 01/11/2021 06/28/2021 07/18/2021 12:1 6 AM CDT COVID - 19 07/19/2021 10/18/2021 10/28/2021 12:1 6 AM CDT COVID - 19 11/01/2021 02/28/2022 03/10/2022 12:1 6 AM MD ALLERGY IMMUNOLOGY COVID - 19 04/25/2022 07/04/2022 07/14/2022 12:1 6 AM CDT documented as of this encounter Care Teams Bench Worker Binding Relationship Specialty Start Date End Date Felisha Yu MD PCP - General Family Medicine 07/20/15 04/21/22 Jose Allan MD PCP - General Family Medicine 04/22/22 07/14/23 Provider, None [place] PCP - General 03/08/24 documented as of this encounter
--- OUTSIDE RECORDS SUMMARY | 2024-05-14 22:14 | XMS_ITS | Encounter Summary ---
Author Organization [facility] Address [address] [place] [address] Phone Care Team Providers Care Eyelet Riveter Name Role Phone Felisha Yu MD Primary Care Provider [phone] Jose Allan MD Primary Care Provider [phone] Provider, None Primary Care Provider Unavailabl e Encounter Details Date Type Department Care Team (Late st Contact Info) Description 12/13/2021 Lab Requisition [facility] Laboratory Services [address] [place] [address] Medhat Briggs MD [address] [place] [address] [address] [place] [address] Encounter for screening for COVID-19 Social History [...] Associated Diagnosis Comments SARS-COV-2 BY MOLECULAR Routine 12/13/2021 7:13 AM CDT Encounter for screening for COVID-19 documented in this encounter Results * SARS-COV-2 BY MOLECULAR (12/13/2021 7:13 AM CDT) SARSCOV2 NOT DETECTED (Referen ce Range for this test is Not Detected ) [facility] THERMOFISHER FAST DX 12/14/2021 8:39 AM CDT [facility] Comment:This test was perfor med by a RT-PCR method. Other Non-Phlebotomy Collection / Unknown 12/13/2021 7:13 AM CDT 12/13/2021 11:37 AM CDT Narrative [facility] - 12/14/2021 8:39 AM CDT Authorized Fact Sheets about this test for providers and patients are available at: https://www.fda.gov/medical-devices/gwtqbkgoa-yenfpjnlau-uteeoje-devices/emergen -us e-authorizations us Medhat Briggs MD MICROBIOLOGY - GENERAL ORDERAB LES Final Result [facility] [address] [place] [address], documented in this encounter Visit Diagnoses Diagnosis Encounter for screening for COVID-19 documented in this encounter Additional Health Concerns Infection Onset Date Last Indicated Resolved Time COVID - 19 11/01/2021 02/28/2022 03/10/2022 12:1 6 AM REFRIGERATOR MOVER COVID - 19 04/25/2022 07/04/2022 07/14/2022 12:1 6 AM CDT documented as of this encounter Care Teams Eyelet Riveter Relationship Specialty Start Date End Date Felisha Yu MD PCP - General Family Medicine 07/20/15 04/21/22 Jose Allan MD PCP - General Family Medicine 04/22/22 07/14/23 Provider, None [place] PCP - General 03/08/24 documented as of this encounter
--- OUTSIDE RECORDS SUMMARY | 2024-05-14 22:14 | XMS_ITS | Encounter Summary ---
Author Organization [facility] Address [address] [facility] [address] [place] [address] Phone Care Team Providers Care Residential Door Installer Name Role Phone Felisha Yu MD Primary Care Provider [phone] Jose Allan MD Primary Care Provider [phone] Provider, None Primary Care Provider Unavailabl e Encounter Details Date Type Department Care Team (Late st Contact Info) Description 06/21/2021 Lab Requisition [facility] Laboratory Services 1 [place] [address] Medhat Briggs MD [address] [place] [address] [address] [place] [address] Encounter for screening for COVID-19 Social History [...] Associated Diagnosis Comments SARS-COV-2 BY MOLECULAR Routine 06/21/2021 7:22 AM LOG SCALER Encounter for screening for COVID-19 documented in this encounter Results * SARS-COV-2 BY MOLECULAR (06/21/2021 7:22 AM LOG SCALER) SARSCOV2 NOT DETECTED (Referen ce Range for this test is Not Detected ) [facility] THERMOFISHER FAST DX 06/22/2021 8:48 AM LOG SCALER [facility] Comment:This test was perfor med by a RT-PCR method. Other Non-Phlebotomy Collection / Unknown 06/21/2021 7:22 AM LOG SCALER 06/21/2021 11:46 AM LOG SCALER Narrative [facility] - 06/22/2021 8:48 AM LOG SCALER Authorized Fact Sheets about this test for providers and patients are available at: https://www.fda.gov/medical-devices/sspvvquff-nyzzblzfae-yanppss-devices/emergen cy-us e-authorizations us Medhat Briggs MD MICROBIOLOGY - GENERAL ORDERAB LES Final Result [facility] [address] [id number], [place] documented in this encounter Visit Diagnoses Diagnosis Encounter for screening for COVID-19 documented in this encounter Additional Health Concerns Infection Onset Date Last Indicated Resolved Time COVID - 19 01/11/2021 06/28/2021 07/18/2021 12:1 6 AM CDT COVID - 19 07/19/2021 10/18/2021 10/28/2021 12:1 6 AM CDT COVID - 19 11/01/2021 02/28/2022 03/10/2022 12:1 6 AM LOG SCALER COVID - 19 04/25/2022 07/04/2022 07/14/2022 12:1 6 AM CDT documented as of this encounter Care Teams Residential Door Installer Relationship Specialty Start Date End Date Felisha Yu MD PCP - General Family Medicine 07/20/15 04/21/22 Jose Allan MD PCP - General Family Medicine 04/22/22 07/14/23 Provider, None [place] PCP - General 03/08/24 documented as of this encounter
--- OUTSIDE RECORDS SUMMARY | 2024-05-14 22:14 | XMS_ITS | Encounter Summary ---
Author Organization [facility] Address [address] [place] [address] Phone Care Team Providers Care Mechanical Oxidizer Name Role Phone Felisha Yu MD Primary Care Provider [phone] Jose Allan MD Primary Care Provider [phone] Provider, None Primary Care Provider Unavailabl e Encounter Details Date Type Department Care Team (Late st Contact Info) Description 05/03/2021 Lab Requisition [facility] Laboratory Services 1 [place] [id number] Medhat Briggs MD [address] [place] [address] [address] [place] [address] Social History Tobacco Use Types Packs/Day Years [...] Associated Diagnosis Comments SARS-COV-2 BY MOLECULAR Routine 05/03/2021 7:19 AM COIN BOX INSPECTOR documented in this encounter Results * SARS-COV-2 BY MOLECULAR (05/03/2021 7:19 AM COIN BOX INSPECTOR) SARSCOV2 NOT DETECTED (Referen ce Range for this test is Not Detected ) [facility] THERMOFISHER FAST DX 05/05/2021 6:12 AM COIN BOX INSPECTOR [facility] Comment:This test was perfor med by a RT-PCR method. Other Non-Phlebotomy Collection / Unknown 05/03/2021 7:19 AM COIN BOX INSPECTOR 05/03/2021 11:29 AM COIN BOX INSPECTOR Narrative [facility] - 05/05/2021 6:12 AM COIN BOX INSPECTOR Authorized Fact Sheets about this test for providers and patients are available at: https://www.fda.gov/medical-devices/czgylhdus-djvmeddkdd-poygyux-devices/emergen cy-us e-authorizations us Medhat Briggs MD MICROBIOLOGY - GENERAL ORDERAB LES Final Result [facility] [address] [place] [address], [place] documented in this encounter Visit Diagnoses Not on filedocumented in this encounter Additional Health Concerns Infection Onset Date Last Indicated Resolved Time COVID - 19 01/11/2021 06/28/2021 07/18/2021 12:1 6 AM CDT COVID - 19 07/19/2021 10/18/2021 10/28/2021 12:1 6 AM CDT COVID - 19 11/01/2021 02/28/2022 03/10/2022 12:1 6 AM COIN BOX INSPECTOR COVID - 19 04/25/2022 07/04/2022 07/14/2022 12:1 6 AM CDT documented as of this encounter Care Teams Mechanical Oxidizer Relationship Specialty Start Date End Date Felisha Yu MD PCP - General Family Medicine 07/20/15 04/21/22 Jose Allan MD PCP - General Family Medicine 04/22/22 07/14/23 Provider, None [place] PCP - General 03/08/24 documented as of this encounter
--- OUTSIDE RECORDS SUMMARY | 2024-05-14 22:14 | XMS_ITS | Encounter Summary ---
Author Organization [facility] Address [address] [facility] [address] [place] [address] Phone Care Team Providers Care Weekend Caregiver Name Role Phone Felisha Yu MD Primary Care Provider [phone] Jose Allan MD Primary Care Provider [phone] Provider, None Primary Care Provider Unavailabl e Encounter Details Date Type Department Care Team (Late st Contact Info) Description 08/09/2021 Lab Requisition [facility] Laboratory Services 1 [place] [address] Medhat Briggs MD [address] [place] [address] [address] [place] [address] Encounter for screening for COVID-19 Social History [...] Associated Diagnosis Comments SARS-COV-2 BY MOLECULAR Routine 08/09/2021 7:55 AM CDT Encounter for screening for COVID-19 documented in this encounter Results * SARS-COV-2 BY MOLECULAR (08/09/2021 7:55 AM CDT) SARSCOV2 NOT DETECTED (Referen ce Range for this test is Not Detected ) [facility] THERMOFISHER FAST DX 08/09/2021 11:11 PM CDT [facility] Comment:This test was perfor med by a RT-PCR method. Other No Phlebotomy Charged / Unknown 08/09/2021 7:55 AM CDT 08/09/2021 12:22 PM CDT Narrative [facility] - 08/09/2021 11:11 PM CDT Authorized Fact Sheets about this test for providers and patients are available at: https://www.fda.gov/medical-devices/pjigzlxgz-cfvsfpiyrx-cyvbzfz-devices/emergen -us e-authorizations us Medhat Briggs MD MICROBIOLOGY - GENERAL ORDERAB LES Final Result [facility] [address] [place] [address], documented in this encounter Visit Diagnoses Diagnosis Encounter for screening for COVID-19 documented in this encounter Additional Health Concerns Infection Onset Date Last Indicated Resolved Time COVID - 19 07/19/2021 10/18/2021 10/28/2021 12:1 6 AM CDT COVID - 19 11/01/2021 02/28/2022 03/10/2022 12:1 6 AM MOBILE DEVELOPER COVID - 19 04/25/2022 07/04/2022 07/14/2022 12:1 6 AM CDT documented as of this encounter Care Teams Weekend Caregiver Relationship Specialty Start Date End Date Felisha Yu MD PCP - General Family Medicine 07/20/15 04/21/22 Jose Allan MD PCP - General Family Medicine 04/22/22 07/14/23 Provider, None [place] PCP - General 03/08/24 documented as of this encounter
--- OUTSIDE RECORDS SUMMARY | 2024-05-14 22:14 | XMS_ITS | Encounter Summary ---
Author Organization [facility] Address [address] [facility] [place] [address] Phone Care Team Providers Care Property Investor Name Role Phone Felisha Yu MD Primary Care Provider [phone] Jose Allan MD Primary Care Provider [phone] Provider, None Primary Care Provider Unavailabl e Encounter Details Date Type Department Care Team (Late st Contact Info) Description 06/14/2021 Lab Requisition [facility] Laboratory Services 1 [place] [address] Medhat Briggs MD [address] [place] [address] [address] [place] [address] Encounter for screening for COVID-19 Social History [...] Associated Diagnosis Comments SARS-COV-2 BY MOLECULAR Routine 06/14/2021 7:20 AM SHOE FITTER Encounter for screening for COVID-19 documented in this encounter Results * SARS-COV-2 BY MOLECULAR (06/14/2021 7:20 AM SHOE FITTER) SARSCOV2 NOT DETECTED (Referen ce Range for this test is Not Detected ) [facility] THERMOFISHER FAST DX 06/14/2021 11:40 PM SHOE FITTER [facility] Comment:This test was perfor med by a RT-PCR method. Other No Phlebotomy Charged / Unknown 06/14/2021 7:20 AM SHOE FITTER 06/14/2021 10:35 AM SHOE FITTER Narrative [facility] - 06/14/2021 11:40 PM SHOE FITTER Authorized Fact Sheets about this test for providers and patients are available at: https://www.fda.gov/medical-devices/aaojctnzs-jqceviuebs-cjcicue-devices/emergen cy-us e-authorizations us Medhat Briggs MD MICROBIOLOGY - GENERAL ORDERAB LES Final Result [facility] [address] [place] [address], [place] documented in this encounter Visit Diagnoses Diagnosis Encounter for screening for COVID-19 documented in this encounter Additional Health Concerns Infection Onset Date Last Indicated Resolved Time COVID - 19 01/11/2021 06/28/2021 07/18/2021 12:1 6 AM CDT COVID - 19 07/19/2021 10/18/2021 10/28/2021 12:1 6 AM CDT COVID - 19 11/01/2021 02/28/2022 03/10/2022 12:1 6 AM SHOE FITTER COVID - 19 04/25/2022 07/04/2022 07/14/2022 12:1 6 AM CDT documented as of this encounter Care Teams Property Investor Relationship Specialty Start Date End Date Felisha Yu MD PCP - General Family Medicine 07/20/15 04/21/22 Jose Allan MD PCP - General Family Medicine 04/22/22 07/14/23 Provider, None [place] PCP - General 03/08/24 documented as of this encounter
--- OUTSIDE RECORDS SUMMARY | 2024-05-14 22:14 | XMS_ITS | Encounter Summary ---
Author Organization [facility] Address [address] [facility] [place] [address] Phone Care Team Providers Care Director Regulatory Affairs Name Role Phone Felisha Yu MD Primary Care Provider [phone] Jose Allan MD Primary Care Provider Provider, None Primary Care Provider Unavailabl e Encounter Details Date Type Department Care Team (Late st Contact Info) Description 11/01/[address] [facility] Laboratory Services 1 [place] [address] Medhat Briggs MD [address] [place] [address] [address] [place] [address] Encounter for screening for COVID-19 Social History [...] Associated Diagnosis Comments SARS-COV-2 BY MOLECULAR Routine 11/01/2021 7:31 AM CDT Encounter for screening for COVID-19 documented in this encounter Results * SARS-COV-2 BY MOLECULAR (11/01/2021 7:31 AM CDT) SARSCOV2 NOT DETECTED (Referen ce Range for this test is Not Detected ) [facility] THERMOFISHER FAST DX 11/02/2021 10:49 AM CDT [facility] Comment:This test was perfor med by a RT-PCR method. Other Non-Phlebotomy Collection / Unknown 11/01/2021 7:31 AM CDT 11/01/2021 10:46 AM CDT Narrative [facility] - 11/02/2021 10:49 AM CDT Authorized Fact Sheets about this test for providers and patients are available at: https://www.fda.gov/medical-devices/bdazbzoto-ujvdysyfws-tuahvgf-devices/emergen -us e-authorizations us Medhat Briggs MD MICROBIOLOGY - GENERAL ORDERAB LES Final Result [facility] [address] [place] [address], documented in this encounter Visit Diagnoses Diagnosis Encounter for screening for COVID-19 documented in this encounter Additional Health Concerns Infection Onset Date Last Indicated Resolved Time COVID - 19 11/01/2021 02/28/2022 03/10/2022 12:1 6 AM STATE EDITOR COVID - 19 04/25/2022 07/04/2022 07/14/2022 12:1 6 AM CDT documented as of this encounter Care Teams Director Regulatory Affairs Relationship Specialty Start Date End Date Felisha Yu MD PCP - General Family Medicine 07/20/15 04/21/22 Jose Allan MD PCP - General Family Medicine 04/22/22 07/14/23 Provider, None [place] PCP - General 03/08/24 documented as of this encounter
--- OUTSIDE RECORDS SUMMARY | 2024-05-14 22:14 | XMS_ITS | Encounter Summary ---
Author Organization [facility] Address [address] [facility] [facility] [place] [address] Phone Care Team Providers Care Flow Machine Operator Name Role Phone Felisha Yu MD Primary Care Provider [phone] Jose Allan MD Primary Care Provider [phone] Provider, None Primary Care Provider Unavailabl e Encounter Details Date Type Department Care Team (Late st Contact Info) Description 12/27/2021 Lab Requisition [facility] Laboratory Services 1 [place] [address] Medhat Briggs MD [address] [place] [address] [address] [place] [address] Encounter for screening for COVID-19 Social History [...] Associated Diagnosis Comments SARS-COV-2 BY MOLECULAR Routine 12/27/2021 7:34 AM CDT Encounter for screening for COVID-19 documented in this encounter Results * SARS-COV-2 BY MOLECULAR (12/27/2021 7:34 AM CDT) SARSCOV2 NOT DETECTED (Referen ce Range for this test is Not Detected ) [facility] THERMOFISHER FAST DX 12/28/2021 8:42 AM CDT [facility] Comment:This test was perfor med by a RT-PCR method. Other Non-Phlebotomy Collection / Unknown 12/27/2021 7:34 AM CDT 12/27/2021 11:03 AM CDT Narrative [facility] - 12/28/2021 8:42 AM CDT Authorized Fact Sheets about this test for providers and patients are available at: https://www.fda.gov/medical-devices/moodhqpmo-fitpibhcqa-aptbusl-devices/emergen -us e-authorizations us Medhat Briggs MD MICROBIOLOGY - GENERAL ORDERAB LES Final Result [facility] [address] [place] [address], documented in this encounter Visit Diagnoses Diagnosis Encounter for screening for COVID-19 documented in this encounter Additional Health Concerns Infection Onset Date Last Indicated Resolved Time COVID - 19 11/01/2021 02/28/2022 03/10/2022 12:1 6 AM 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
--- OUTSIDE RECORDS SUMMARY | 2024-05-14 22:14 | XMS_ITS | Encounter Summary ---
Author Organization [facility] Address [address] [facility] [place] [address] Phone Care Team Providers Care Oil Truck Driver Name Role Phone Felisha Yu MD Primary Care Provider [phone] Jose Allan MD Primary Care Provider [phone] Provider, None Primary Care Provider Unavailabl e Encounter Details Date Type Department Care Team (Late st Contact Info) Description 08/23/[address] [facility] Laboratory Services 1 [place] [address] Medhat Briggs MD [address] [place] [address] [address] [place] [address] Encounter for screening for COVID-19 Social History [...] Associated Diagnosis Comments SARS-COV-2 BY MOLECULAR Routine 08/23/2021 7:37 AM CDT Encounter for screening for COVID-19 documented in this encounter Results * SARS-COV-2 BY MOLECULAR (08/23/2021 7:37 AM CDT) SARSCOV2 NOT DETECTED (Referen ce Range for this test is Not Detected ) [facility] THERMOFISHER FAST DX 08/23/2021 11:33 PM CDT [facility] Comment:This test was perfor med by a RT-PCR method. Other Non-Phlebotomy Collection / Unknown 08/23/2021 7:37 AM CDT 08/23/2021 12:11 PM CDT Narrative [facility] - 08/23/2021 11:33 PM CDT Authorized Fact Sheets about this test for providers and patients are available at: https://www.fda.gov/medical-devices/sdqecqrfo-aouihzrjsw-chtamdc-devices/emergen -us e-authorizations us Medhat Briggs MD MICROBIOLOGY - GENERAL ORDERAB LES Final Result [facility] [address] [place] [address], documented in this encounter Visit Diagnoses Diagnosis Encounter for screening for COVID-19 documented in this encounter Additional Health Concerns Infection Onset Date Last Indicated Resolved Time COVID - 19 07/19/2021 10/18/2021 10/28/2021 12:1 6 AM CDT COVID - 19 11/01/2021 02/28/2022 03/10/2022 12:1 6 AM SCOOP FILLER COVID - 19 04/25/2022 07/04/2022 07/14/2022 12:1 6 AM CDT documented as of this encounter Care Teams Oil Truck Driver Relationship Specialty Start Date End Date Felisha Yu MD PCP - General Family Medicine 07/20/15 04/21/22 Jose Allan MD PCP - General Family Medicine 04/22/22 07/14/23 Provider, None [place] PCP - General 03/08/24 documented as of this encounter
--- OUTSIDE RECORDS SUMMARY | 2024-05-14 22:14 | XMS_ITS | Encounter Summary ---
Author Organization [facility] Address [address] [facility] [place] [address] Phone Care Team Providers Care Grab Hooker Name Role Phone Felisha Yu MD Primary Care Provider Jose Allan MD Primary Care Provider [phone] Provider, None Primary Care Provider Unavailabl e Encounter Details Date Type Department Care Team (Late st Contact Info) Description 11/15/2021 Lab Requisition [facility] Laboratory Services [address] [place] [address] Medhat Briggs MD [address] [place] [address] [address] [place] [address] Encounter for screening for COVID-19 Social History [...] Associated Diagnosis Comments SARS-COV-2 BY MOLECULAR Routine 11/15/2021 8:00 AM CDT Encounter for screening for COVID-19 documented in this encounter Results * SARS-COV-2 BY MOLECULAR (11/15/2021 8:00 AM CDT) SARSCOV2 NOT DETECTED (Referen ce Range for this test is Not Detected ) [facility] THERMOFISHER FAST DX 11/16/2021 12:23 AM CDT [facility] Comment:This test was perfor med by a RT-PCR method. Other Non-Phlebotomy Collection / Unknown 11/15/2021 8:00 AM CDT 11/15/2021 12:10 PM CDT Narrative [facility] - 11/16/2021 12:23 AM CDT Authorized Fact Sheets about this test for providers and patients are available at: https://www.fda.gov/medical-devices/hpdckqpah-alxmsocvej-dzowjtx-devices/emergen -us e-authorizations us Medhat Briggs MD MICROBIOLOGY - GENERAL ORDERAB LES Final Result [facility] [address] [place] [address], documented in this encounter Visit Diagnoses Diagnosis Encounter for screening for COVID-19 documented in this encounter Additional Health Concerns Infection Onset Date Last Indicated Resolved Time COVID - 19 11/01/2021 02/28/2022 03/10/2022 12:1 6 AM 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
--- OUTSIDE RECORDS SUMMARY | 2024-05-14 22:14 | XMS_ITS | Encounter Summary ---
Author Organization [facility] Address [address] [facility] [place] [address] Phone Care Team Providers Care Brass Cutter Name Role Phone Felisha Yu MD Primary Care Provider [phone] Jose Allan MD Primary Care Provider [phone] Provider, None Primary Care Provider Unavailabl e Encounter Details Date Type Department Care Team (Late st Contact Info) Description 01/03/2022 Lab Requisition [facility] Laboratory Services [address] [place] [address] Medhat Briggs MD [address] [place] [address] [address] [place] [address] Encounter for screening for COVID-19 Social History [...] Associated Diagnosis Comments SARS-COV-2 BY MOLECULAR Routine 01/03/2022 7:36 AM CDT Encounter for screening for COVID-19 documented in this encounter Results * SARS-COV-2 BY MOLECULAR (01/03/2022 7:36 AM CDT) SARSCOV2 NOT DETECTED (Referen ce Range for this test is Not Detected ) [facility] THERMOFISHER FAST DX 01/03/2022 10:11 PM CDT [facility] Comment:This test was perfor med by a RT-PCR method. Other Non-Phlebotomy Collection / Unknown 01/03/2022 7:36 AM CDT 01/03/2022 9:39 AM CDT Narrative [facility] - 01/03/2022 10:11 PM CDT Authorized Fact Sheets about this test for providers and patients are available at: https://www.fda.gov/medical-devices/chtjmnggv-prfdmgkasd-ssitsbx-devices/emergen -us e-authorizations us Medhat Briggs MD MICROBIOLOGY - GENERAL ORDERAB LES Final Result [facility] [address] [place] [address], documented in this encounter Visit Diagnoses Diagnosis Encounter for screening for COVID-19 documented in this encounter Additional Health Concerns Infection Onset Date Last Indicated Resolved Time COVID - 19 11/01/2021 02/28/2022 03/10/2022 12:1 6 AM CONSTRUCTION SAFETY MANAGER COVID - 19 04/25/2022 07/04/2022 07/14/2022 12:1 6 AM CDT documented as of this encounter Care Teams Brass Cutter Relationship Specialty Start Date End Date Felisha Yu MD PCP - General Family Medicine 07/20/15 04/21/22 Jose Allan MD PCP - General Family Medicine 04/22/22 07/14/23 Provider, None [place] PCP - General 03/08/24 documented as of this encounter
--- OUTSIDE RECORDS SUMMARY | 2024-05-14 22:14 | XMS_ITS | Encounter Summary ---
Author Organization [facility] Address [address] [facility] [place] [address] Phone Care Team Providers Care Executive Secretary Name Role Phone Felisha Yu MD Primary Care Provider [phone] Jose Allan MD Primary Care Provider [phone] Provider, None Primary Care Provider Unavailabl e Encounter Details Date Type Department Care Team (Late st Contact Info) Description 02/08/2021 Lab Requisition [facility] Laboratory Services 1 [place] [id number] Medhat Briggs MD [address] [place] [address] [address] [place] [address] Social History Tobacco Use Types Packs/Day Years [...] Associated Diagnosis Comments SARS-COV-2 BY MOLECULAR Routine 02/08/2021 7:42 AM CDT documented in this encounter Results * SARS-COV-2 BY MOLECULAR (02/08/2021 7:42 AM CDT) SARSCOV2 NOT DETECTED (Referen ce Range for this test is Not Detected ) [facility] THERMOFISHER FAST DX 02/08/2021 5:44 PM CDT [facility] Comment:This test was perfor med by a RT-PCR method. Other Non-Phlebotomy Collection / Unknown 02/08/2021 7:42 AM CDT 02/08/2021 10:55 AM CDT N[facility]ative [facility] - 02/08/2021 5:44 PM CDT Authorized Fact Sheets about this test for providers and patients are available at: https://www.fda.gov/medical-devices/oxwkgnljz-prlodzigdj-tstpihe-devices/emergen -us e-authorizations us Medhat Briggs MD MICROBIOLOGY - GENERAL ORDERAB LES Final Result [facility] [address] [place] [address], documented in this encounter Visit Diagnoses Not on filedocumented in this encounter Additional Health Concerns Infection Onset Date Last Indicated Resolved Time COVID - 19 01/11/2021 06/28/2021 07/18/2021 12:1 6 AM CDT COVID - 19 07/19/2021 10/18/2021 10/28/2021 12:1 6 AM CDT COVID - 19 11/01/2021 02/28/2022 03/10/2022 12:1 6 AM WEED THINNER COVID - 19 04/25/2022 07/04/2022 07/14/2022 12:1 6 AM CDT documented as of this encounter Care Teams Executive Secretary Relationship Specialty Start Date End Date Felisha Yu MD PCP - General Family Medicine 07/20/15 04/21/22 Jose Allan MD PCP - General Family Medicine 04/22/22 07/14/23 Provider, None [place] PCP - General 03/08/24 documented as of this encounter
--- OUTSIDE RECORDS SUMMARY | 2024-05-14 22:14 | XMS_ITS | Encounter Summary ---
Author Organization [facility] Address [address] [place] [address] Phone Care Team Providers Care Mail Carrier And Clerk Name Role Phone Felisha Yu MD Primary Care Provider [phone] Jose Allan MD Primary Care Provider [phone] Provider, None Primary Care Provider Unavailabl e Encounter Details Date Type Department Care Team (Late st Contact Info) Description 11/29/2021 Lab Requisition [facility] 1 [place] [address] Medhat Briggs MD [address] [place] [address] [address] [place] [address] Encounter for screening for COVID-19 Social History [...] Associated Diagnosis Comments SARS-COV-2 BY MOLECULAR Routine 11/29/2021 7:27 AM CDT Encounter for screening for COVID-19 documented in this encounter Results * SARS-COV-2 BY MOLECULAR (11/29/2021 7:27 AM CDT) SARSCOV2 NOT DETECTED (Referen ce Range for this test is Not Detected ) [facility] THERMOFISHER FAST DX 11/30/2021 6:46 AM CDT [facility] Comment:This test was perfor med by a RT-PCR method. Other No Phlebotomy Charged / Unknown 11/29/2021 7:27 AM CDT 11/29/2021 11:14 AM CDT Narrative [facility] - 11/30/2021 6:46 AM CDT Authorized Fact Sheets about this test for providers and patients are available at: https://www.fda.gov/medical-devices/cdjohpeon-gweewlytjg-ihmzjbp-devices/emergen -us e-authorizations us Medhat Briggs MD MICROBIOLOGY - GENERAL ORDERAB LES Final Result [facility] [address] [place] [address], documented in this encounter Visit Diagnoses Diagnosis Encounter for screening for COVID-19 documented in this encounter Additional Health Concerns Infection Onset Date Last Indicated Resolved Time COVID - 19 11/01/2021 02/28/2022 03/10/2022 12:1 6 AM SPECIAL PROCEDURES NURSE COVID - 19 04/25/2022 07/04/2022 07/14/2022 12:1 6 AM CDT documented as of this encounter Care Teams Mail Carrier And Clerk Relationship Specialty Start Date End Date Felisha Yu MD PCP - General Family Medicine 07/20/15 04/21/22 Jose Allan MD PCP - General Family Medicine 04/22/22 07/14/23 Provider, None [place] PCP - General 03/08/24 documented as of this encounter
--- OUTSIDE RECORDS SUMMARY | 2024-05-14 22:14 | XMS_ITS | Encounter Summary ---
Author Organization [facility] Address [address] [place] [address] Phone Care Team Providers Care Assistant Commissioner Name Role Phone Felisha Yu MD Primary Care Provider [phone] Jose Allan MD Primary Care Provider [phone] Provider, None Primary Care Provider Unavailabl e Encounter Details Date Type Department Care Team (Late st Contact Info) Description 03/08/2021 Lab Requisition [facility] Services 1 [place] [address] Medhat Briggs MD [address] [place] [address] [address] [place] [address] Encounter for screening for COVID-19 Social History [...] Associated Diagnosis Comments SARS-COV-2 BY MOLECULAR Routine 03/08/2021 7:53 AM METAL CUT OFF SAW OPERATOR Encounter for screening for COVID-19 documented in this encounter Results * SARS-COV-2 BY MOLECULAR (03/08/2021 7:53 AM METAL CUT OFF SAW OPERATOR) SARSCOV2 NOT DETECTED (Referen ce Range for this test is Not Detected ) [facility] THERMOFISHER FAST DX 03/09/2021 8:54 AM METAL CUT OFF SAW OPERATOR [facility] Comment:This test was perfor med by a RT-PCR method. Other Non-Phlebotomy Collection / Unknown 03/08/2021 7:53 AM METAL CUT OFF SAW OPERATOR 03/08/2021 10:35 AM METAL CUT OFF SAW OPERATOR Narrative [facility] - 03/09/2021 8:54 AM METAL CUT OFF SAW OPERATOR Authorized Fact Sheets about this test for providers and patients are available at: https://www.fda.gov/medical-devices/orgueevtu-nhspfparzx-mlbwsmw-devices/emergen cy-us e-authorizations us Medhat Briggs MD MICROBIOLOGY - GENERAL ORDERAB LES Final Result [facility] [address] [id number], [place] documented in this encounter Visit Diagnoses Diagnosis Encounter for screening for COVID-19 documented in this encounter Additional Health Concerns Infection Onset Date Last Indicated Resolved Time COVID - 19 01/11/2021 06/28/2021 07/18/2021 12:1 6 AM CDT COVID - 19 07/19/2021 10/18/2021 10/28/2021 12:1 6 AM CDT COVID - 19 11/01/2021 02/28/2022 03/10/2022 12:1 6 AM METAL CUT OFF SAW OPERATOR COVID - 19 04/25/2022 07/04/2022 07/14/2022 12:1 6 AM CDT documented as of this encounter Care Teams Assistant Commissioner Relationship Specialty Start Date End Date Felisha Yu MD PCP - General Family Medicine 07/20/15 04/21/22 Jose Allan MD PCP - General Family Medicine 04/22/22 07/14/23 Provider, None [place] PCP - General 03/08/24 documented as of this encounter
--- OUTSIDE RECORDS SUMMARY | 2024-05-14 22:14 | XMS_ITS | Encounter Summary ---
Author Organization [facility] Health[facility] Address [address] [place] [address] Phone Care Team Providers Care Occupational Health Nurse Supervisor Name Role Phone Felisha Yu MD Primary Care Provider [phone] Jose Allan MD Primary Care Provider [phone] Provider, None Primary Care Provider Unavailabl e Encounter Details Date Type Department Care Team (Late st Contact Info) Description 10/18/2021 Lab Requisition [facility] Services 1 [place] [address] Medhat Briggs MD [address] [place] [address] [address] [place] [address] Encounter for screening for COVID-19 Social History [...] Associated Diagnosis Comments SARS-COV-2 BY MOLECULAR Routine 10/18/2021 7:54 AM CDT Encounter for screening for COVID-19 documented in this encounter Results * SARS-COV-2 BY MOLECULAR (10/18/2021 7:54 AM CDT) SARSCOV2 NOT DETECTED (Referen ce Range for this test is Not Detected ) [facility] THERMOFISHER FAST DX 10/18/2021 5:27 PM CDT [facility] Comment:This test was perfor med by a RT-PCR method. Other Non-Phlebotomy Collection / Unknown 10/18/2021 7:54 AM CDT 10/18/2021 10:02 AM CDT Narrative [facility] - 10/18/2021 5:27 PM CDT Authorized Fact Sheets about this test for providers and patients are available at: https://www.fda.gov/medical-devices/vjnecvmed-kcnfomnrbp-dcsxqzv-devices/emergen -us e-authorizations us Medhat Briggs MD MICROBIOLOGY - GENERAL ORDERAB LES Final Result [facility] [address] [place] [address], documented in this encounter Visit Diagnoses Diagnosis Encounter for screening for COVID-19 documented in this encounter Additional Health Concerns Infection Onset Date Last Indicated Resolved Time COVID - 19 07/19/2021 10/18/2021 10/28/2021 12:1 6 AM CDT COVID - 19 11/01/2021 02/28/2022 03/10/2022 12:1 6 AM SET UP MECHANIC STAMPING MACHINES COVID - 19 04/25/2022 07/04/2022 07/14/2022 12:1 6 AM CDT documented as of this encounter Care Teams Occupational Health Nurse Supervisor Relationship Specialty Start Date End Date Felisha Yu MD PCP - General Family Medicine 07/20/15 04/21/22 Jose Allan MD PCP - General Family Medicine 04/22/22 07/14/23 Provider, None [place] PCP - General 03/08/24 documented as of this encounter
--- OUTSIDE RECORDS SUMMARY | 2024-05-14 22:14 | XMS_ITS | Encounter Summary ---
Author Organization [facility] Address [address] [place] [address] Phone Care Team Providers Care Envelope Sealing Machine Operator Name Role Phone Felisha Yu MD Primary Care Provider Jose Allan MD Primary Care Provider [phone] Provider, None Primary Care Provider Unavailabl e Encounter Details Date Type Department Care Team (Late st Contact Info) Description 08/16/2021 Lab Requisition [facility] Laboratory Services 1 [place] [address] Medhat Briggs MD [address] [place] [address] [address] [place] [address] Encounter for screening for COVID-19 Social History [...] Associated Diagnosis Comments SARS-COV-2 BY MOLECULAR Routine 08/16/2021 7:44 AM CDT Encounter for screening for COVID-19 documented in this encounter Results * SARS-COV-2 BY MOLECULAR (08/16/2021 7:44 AM CDT) SARSCOV2 NOT DETECTED (Referen ce Range for this test is Not Detected ) [facility] THERMOFISHER FAST DX 08/17/2021 9:48 AM CDT [facility] Comment:This test was perfor med by a RT-PCR method. Other No Phlebotomy Charged / Unknown 08/16/2021 7:44 AM CDT 08/16/2021 12:12 PM CDT Narrative [facility] - 08/17/2021 9:48 AM CDT Authorized Fact Sheets about this test for providers and patients are available at: https://www.fda.gov/medical-devices/ahjxeujgj-nxndupjoec-vnilwug-devices/emergen -us e-authorizations us Medhat Briggs MD MICROBIOLOGY - GENERAL ORDERAB LES Final Result [facility] [address] [place] [address], documented in this encounter Visit Diagnoses Diagnosis Encounter for screening for COVID-19 documented in this encounter Additional Health Concerns Infection Onset Date Last Indicated Resolved Time COVID - 19 07/19/2021 10/18/2021 10/28/2021 12:1 6 AM CDT COVID - 19 11/01/2021 02/28/2022 03/10/2022 12:1 6 AM DOCUMENT EXAMINER COVID - 19 04/25/2022 07/04/2022 07/14/2022 12:1 6 AM CDT documented as of this encounter Care Teams Envelope Sealing Machine Operator Relationship Specialty Start Date End Date Felisha Yu MD PCP - General Family Medicine 07/20/15 04/21/22 Jose Allan MD PCP - General Family Medicine 04/22/22 07/14/23 Provider, None [place] PCP - General 03/08/24 documented as of this encounter
--- OUTSIDE RECORDS SUMMARY | 2024-05-14 22:14 | XMS_ITS | Encounter Summary ---
Author Organization [facility] Health[facility] Address [address] [place] [address] Phone Care Team Providers Care Arcade Game Technician Name Role Phone Felisha Yu MD Primary Care Provider [phone] Jose Allan MD Primary Care Provider [phone] Provider, None Primary Care Provider Unavailabl e Encounter Details Date Type Department Care Team (Late st Contact Info) Description 07/19/2021 Lab Requisition [facility] Services 1 [place] [address] Medhat Briggs MD [address] [place] [address] [address] [place] [address] Encounter for screening for COVID-19 Social History [...] Associated Diagnosis Comments SARS-COV-2 BY MOLECULAR Routine 07/19/2021 7:30 AM CDT Encounter for screening for COVID-19 documented in this encounter Results * SARS-COV-2 BY MOLECULAR (07/19/2021 7:30 AM CDT) SARSCOV2 NOT DETECTED (Referen ce Range for this test is Not Detected ) [facility] THERMOFISHER FAST DX 07/20/2021 12:26 AM CDT [facility] Comment:This test was perfor med by a RT-PCR method. Other Non-Phlebotomy Collection / Unknown 07/19/2021 7:30 AM CDT 07/19/2021 12:40 PM CDT Narrative [facility] - 07/20/2021 12:26 AM CDT Authorized Fact Sheets about this test for providers and patients are available at: https://www.fda.gov/medical-devices/bvwzuaswu-pbovmhxkqx-soknmav-devices/emergen -us e-authorizations us Medhat Briggs MD MICROBIOLOGY - GENERAL ORDERAB LES Final Result [facility] [address] [place] [address], documented in this encounter Visit Diagnoses Diagnosis Encounter for screening for COVID-19 documented in this encounter Additional Health Concerns Infection Onset Date Last Indicated Resolved Time COVID - 19 07/19/2021 10/18/2021 10/28/2021 12:1 6 AM CDT COVID - 19 11/01/2021 02/28/2022 03/10/2022 12:1 6 AM LAUNDRY WORKER COVID - 19 04/25/2022 07/04/2022 07/14/2022 12:1 6 AM CDT documented as of this encounter Care Teams Arcade Game Technician Relationship Specialty Start Date End Date Felisha Yu MD PCP - General Family Medicine 07/20/15 04/21/22 Jose Allan MD PCP - General Family Medicine 04/22/22 07/14/23 Provider, None [place] PCP - General 03/08/24 documented as of this encounter
--- OUTSIDE RECORDS SUMMARY | 2024-05-14 22:14 | XMS_ITS | Encounter Summary ---
Author Organization [facility] Address [address] [place] [address] Phone Care Team Providers Care Efficiency Clerk Name Role Phone Felisha Yu MD Primary Care Provider [phone] Jose Allan MD Primary Care Provider [phone] Provider, None Primary Care Provider Unavailabl e Encounter Details Date Type Department Care Team (Late st Contact Info) Description 03/22/[address] [facility] Laboratory Services 1 [place] [id number] Medhat Briggs MD [address] [place] [address] [address] [place] [address] Social History Tobacco Use Types Packs/Day Years [...] Associated Diagnosis Comments SARS-COV-2 BY MOLECULAR Routine 03/22/2021 7:35 AM MANAGER HYDRAULIC documented in this encounter Results * SARS-COV-2 BY MOLECULAR (03/22/2021 7:35 AM MANAGER HYDRAULIC) SARSCOV2 NOT DETECTED (Referen ce Range for this test is Not Detected ) [facility] THERMOFISHER FAST DX 03/24/2021 8:48 AM MANAGER HYDRAULIC [facility] Comment:This test was perfor med by a RT-PCR method. Other Non-Phlebotomy Collection / Unknown 03/22/2021 7:35 AM MANAGER HYDRAULIC 03/22/2021 10:48 AM MANAGER HYDRAULIC Narrative [facility] - 03/24/2021 8:48 AM MANAGER HYDRAULIC Authorized Fact Sheets about this test for providers and patients are available at: https://www.fda.gov/medical-devices/ltysjhsmm-xmxmccceuw-ibtbfxg-devices/emergen cy-us e-authorizations us Medhat Briggs MD MICROBIOLOGY - GENERAL ORDERAB LES Final Result [facility] [address] [place] [address], [place] documented in this encounter Visit Diagnoses Not on filedocumented in this encounter Additional Health Concerns Infection Onset Date Last Indicated Resolved Time COVID - 19 01/11/2021 06/28/2021 07/18/2021 12:1 6 AM CDT COVID - 19 07/19/2021 10/18/2021 10/28/2021 12:1 6 AM CDT COVID - 19 11/01/2021 02/28/2022 03/10/2022 12:1 6 AM MANAGER HYDRAULIC COVID - 19 04/25/2022 07/04/2022 07/14/2022 12:1 6 AM CDT documented as of this encounter Care Teams Efficiency Clerk Relationship Specialty Start Date End Date Felisha Yu MD PCP - General Family Medicine 07/20/15 04/21/22 Jose Allan MD PCP - General Family Medicine 04/22/22 07/14/23 Provider, None [place] PCP - General 03/08/24 documented as of this encounter
--- OUTSIDE RECORDS SUMMARY | 2024-05-14 22:14 | XMS_ITS | Encounter Summary ---
Author Organization [facility] Health[facility] Address [address] [place] [address] Phone Care Team Providers Care Extension Supervisor Name Role Phone Felisha Yu MD Primary Care Provider [phone] Jose Allan MD Primary Care Provider Provider, None Primary Care Provider Unavailabl e Encounter Details Date Type Department Care Team (Late st Contact Info) Description 05/31/2021 Lab Requisition [facility] Laboratory Services [address] [place] [address] Medhat Briggs MD [address] [place] [address] [address] [place] [address] Encounter for screening for COVID-19 Social History [...] Associated Diagnosis Comments SARS-COV-2 BY MOLECULAR Routine 05/31/2021 6:58 AM OVEN HEATER HELPER Encounter for screening for COVID-19 documented in this encounter Results * SARS-COV-2 BY MOLECULAR (05/31/2021 6:58 AM OVEN HEATER HELPER) SARSCOV2 NOT DETECTED (Referen ce Range for this test is Not Detected ) [facility] THERMOFISHER FAST DX 05/31/2021 11:49 PM OVEN HEATER HELPER [facility] Comment:This test was perfor med by a RT-PCR method. Other Non-Phlebotomy Collection / Unknown 05/31/2021 6:58 AM OVEN HEATER HELPER 05/31/2021 12:52 PM OVEN HEATER HELPER Narrative [facility] - 05/31/2021 11:49 PM OVEN HEATER HELPER Authorized Fact Sheets about this test for providers and patients are available at: https://www.fda.gov/medical-devices/oaguammuc-yurwafhhku-qvavuxb-devices/emergen cy-us e-authorizations us Medhat Briggs MD MICROBIOLOGY - GENERAL ORDERAB LES Final Result [facility] [address] [id number], [place] documented in this encounter Visit Diagnoses Diagnosis Encounter for screening for COVID-19 documented in this encounter Additional Health Concerns Infection Onset Date Last Indicated Resolved Time COVID - 19 01/11/2021 06/28/2021 07/18/2021 12:1 6 AM CDT COVID - 19 07/19/2021 10/18/2021 10/28/2021 12:1 6 AM CDT COVID - 19 11/01/2021 02/28/2022 03/10/2022 12:1 6 AM OVEN HEATER HELPER COVID - 19 04/25/2022 07/04/2022 07/14/2022 12:1 6 AM CDT documented as of this encounter Care Teams Extension Supervisor Relationship Specialty Start Date End Date Felisha Yu MD PCP - General Family Medicine 07/20/15 04/21/22 Jose Allan MD PCP - General Family Medicine 04/22/22 07/14/23 Provider, None [place] PCP - General 03/08/24 documented as of this encounter
--- OUTSIDE RECORDS SUMMARY | 2024-05-14 22:14 | XMS_ITS | Encounter Summary ---
Author Organization [facility] Health[facility] Address [address] [place] [address] Phone Care Team Providers Care Shipping Lead Person Name Role Phone Felisha Yu MD Primary Care Provider [phone] Jose Allan MD Primary Care Provider [phone] Provider, None Primary Care Provider Unavailabl e Encounter Details Date Type Department Care Team (Late st Contact Info) Description 04/19/2021 Lab Requisition [facility] [address] [place] [address] Medhat Briggs MD [address] [place] [address] [address] [place] [address] Encounter for screening for COVID-19 Social History [...] Associated Diagnosis Comments SARS-COV-2 BY MOLECULAR Routine 04/19/2021 7:59 AM LICENSED MASSAGE THERAPIST Encounter for screening for COVID-19 documented in this encounter Results * SARS-COV-2 BY MOLECULAR (04/19/2021 7:59 AM LICENSED MASSAGE THERAPIST) SARSCOV2 NOT DETECTED (Referen ce Range for this test is Not Detected ) [facility] THERMOFISHER FAST DX 04/22/2021 9:49 AM LICENSED MASSAGE THERAPIST [facility] Comment:This test was perfor med by a RT-PCR method. Other No Phlebotomy Charged / Unknown 04/19/2021 7:59 AM LICENSED MASSAGE THERAPIST 04/19/2021 11:14 AM LICENSED MASSAGE THERAPIST Narrative [facility] - 04/22/2021 9:49 AM LICENSED MASSAGE THERAPIST Authorized Fact Sheets about this test for providers and patients are available at: https://www.fda.gov/medical-devices/fznywwios-cmhpcityyo-vondfsj-devices/emergen cy-us e-authorizations us Medhat Briggs MD MICROBIOLOGY - GENERAL ORDERAB LES Final Result [facility] [address] [phone], [place] documented in this encounter Visit Diagnoses Diagnosis Encounter for screening for COVID-19 documented in this encounter Additional Health Concerns Infection Onset Date Last Indicated Resolved Time COVID - 19 01/11/2021 06/28/2021 07/18/2021 12:1 6 AM CDT COVID - 19 07/19/2021 10/18/2021 10/28/2021 12:1 6 AM CDT COVID - 19 11/01/2021 02/28/2022 03/10/2022 12:1 6 AM LICENSED MASSAGE THERAPIST COVID - 19 04/25/2022 07/04/2022 07/14/2022 12:1 6 AM CDT documented as of this encounter Care Teams Shipping Lead Person Relationship Specialty Start Date End Date Felisha Yu MD PCP - General Family Medicine 07/20/15 04/21/22 Jose Allan MD PCP - General Family Medicine 04/22/22 07/14/23 Provider, None [place] PCP - General 03/08/24 documented as of this encounter
--- OUTSIDE RECORDS SUMMARY | 2024-05-14 22:14 | XMS_ITS | Encounter Summary ---
Author Organization [facility] Address [address] [facility] [address] [place] [address] Phone Care Team Providers Care Gun Number Name Role Phone Felisha Yu MD Primary Care Provider [phone] Jose Allan MD Primary Care Provider [phone] Provider, None Primary Care Provider Unavailabl e Encounter Details Date Type Department Care Team (Late st Contact Info) Description 04/12/2021 Lab Requisition [facility] Laboratory Services [address] [place] [address] Medhat Briggs MD [address] [place] [address] [address] [place] [address] Encounter for screening for COVID-19 Social History [...] Associated Diagnosis Comments SARS-COV-2 BY MOLECULAR Routine 04/12/2021 7:39 AM HORSE TREKKING GUIDE Encounter for screening for COVID-19 documented in this encounter Results * SARS-COV-2 BY MOLECULAR (04/12/2021 7:39 AM HORSE TREKKING GUIDE) SARSCOV2 NOT DETECTED (Referen ce Range for this test is Not Detected ) [facility] THERMOFISHER FAST DX 04/15/2021 8:57 AM HORSE TREKKING GUIDE [facility] Comment:This test was perfor med by a RT-PCR method. Other No Phlebotomy Charged / Unknown 04/12/2021 7:39 AM HORSE TREKKING GUIDE 04/12/2021 11:15 AM HORSE TREKKING GUIDE Narrative [facility] - 04/15/2021 8:57 AM HORSE TREKKING GUIDE Authorized Fact Sheets about this test for providers and patients are available at: https://www.fda.gov/medical-devices/kvvqflskw-svvgrmuqsc-rvvzbyg-devices/emergen cy-us e-authorizations us Medhat Briggs MD MICROBIOLOGY - GENERAL ORDERAB LES Final Result [facility] [address] [phone], [place] documented in this encounter Visit Diagnoses Diagnosis Encounter for screening for COVID-19 documented in this encounter Additional Health Concerns Infection Onset Date Last Indicated Resolved Time COVID - 19 01/11/2021 06/28/2021 07/18/2021 12:1 6 AM CDT COVID - 19 07/19/2021 10/18/2021 10/28/2021 12:1 6 AM CDT COVID - 19 11/01/2021 02/28/2022 03/10/2022 12:1 6 AM HORSE TREKKING GUIDE COVID - 19 04/25/2022 07/04/2022 07/14/2022 12:1 6 AM CDT documented as of this encounter Care Teams Gun Number Relationship Specialty Start Date End Date Felisha Yu MD PCP - General Family Medicine 07/20/15 04/21/22 Jose Allan MD PCP - General Family Medicine 04/22/22 07/14/23 Provider, None [place] PCP - General 03/08/24 documented as of this encounter
--- OUTSIDE RECORDS SUMMARY | 2024-05-14 22:14 | XMS_ITS | Encounter Summary ---
Author Organization [facility] Address [address] [place] [address] Phone Care Team Providers Care Staff Trainer Name Role Phone Felisha Yu MD Primary Care Provider [phone] Jose Allan MD Primary Care Provider [phone] Provider, None Primary Care Provider Unavailabl e Encounter Details Date Type Department Care Team (Late st Contact Info) Description 08/30/2021 Lab Requisition [facility] Laboratory Services 1 [place] [address] Medhat Briggs MD [address] [place] [address] [address] [place] [address] Encounter for screening for COVID-19 Social History [...] Associated Diagnosis Comments SARS-COV-2 BY MOLECULAR Routine 08/30/2021 7:49 AM CDT Encounter for screening for COVID-19 documented in this encounter Results * SARS-COV-2 BY MOLECULAR (08/30/2021 7:49 AM CDT) SARSCOV2 NOT DETECTED (Referen ce Range for this test is Not Detected ) [facility] THERMOFISHER FAST DX 08/31/2021 10:13 AM CDT [facility] Comment:This test was perfor med by a RT-PCR method. Other Non-Phlebotomy Collection / Unknown 08/30/2021 7:49 AM CDT 08/30/2021 1:24 PM CDT Narrative [facility] - 08/31/2021 10:13 AM CDT Authorized Fact Sheets about this test for providers and patients are available at: https://www.fda.gov/medical-devices/zozlhybfe-cnldjbxqxs-kwkjfxn-devices/emergen -us e-authorizations us Medhat Briggs MD MICROBIOLOGY - GENERAL ORDERAB LES Final Result [facility] [address] [place] [address], documented in this encounter Visit Diagnoses Diagnosis Encounter for screening for COVID-19 documented in this encounter Additional Health Concerns Infection Onset Date Last Indicated Resolved Time COVID - 19 07/19/2021 10/18/2021 10/28/2021 12:1 6 AM CDT COVID - 19 11/01/2021 02/28/2022 03/10/2022 12:1 6 AM BILINGUAL RECRUITER COVID - 19 04/25/2022 07/04/2022 07/14/2022 12:1 6 AM CDT documented as of this encounter Care Teams Staff Trainer Relationship Specialty Start Date End Date Felisha Yu MD PCP - General Family Medicine 07/20/15 04/21/22 Jose Allan MD PCP - General Family Medicine 04/22/22 07/14/23 Provider, None [place] PCP - General 03/08/24 documented as of this encounter
--- OUTSIDE RECORDS SUMMARY | 2024-05-14 22:14 | XMS_ITS | Encounter Summary ---
Author Organization [facility] Address [address] [place] [address] Phone Care Team Providers Care Research Rn Spec Name Role Phone Felisha Yu MD Primary Care Provider [phone] Jose Allan MD Primary Care Provider [phone] Provider, None Primary Care Provider Unavailabl e Encounter Details Date Type Department Care Team (Late st Contact Info) Description 04/26/2021 Lab Requisition [facility] Laboratory Services 1 [place] [id number] Medhat Briggs MD [address] [place] [address] [address] [place] [address] Social History Tobacco Use Types Packs/Day Years [...] Associated Diagnosis Comments SARS-COV-2 BY MOLECULAR Routine 04/26/2021 7:54 AM DIRECTOR REGULATORY AGENCY documented in this encounter Results * SARS-COV-2 BY MOLECULAR (04/26/2021 7:54 AM DIRECTOR REGULATORY AGENCY) SARSCOV2 NOT DETECTED (Referen ce Range for this test is Not Detected ) [facility] THERMOFISHER FAST DX 04/28/2021 7:20 PM DIRECTOR REGULATORY AGENCY [facility] Comment:This test was perfor med by a RT-PCR method. Other Non-Phlebotomy Collection / Unknown 04/26/2021 7:54 AM DIRECTOR REGULATORY AGENCY 04/26/2021 1:04 PM DIRECTOR REGULATORY AGENCY Narrative [facility] - 04/28/2021 7:20 PM DIRECTOR REGULATORY AGENCY Authorized Fact Sheets about this test for providers and patients are available at: https://www.fda.gov/medical-devices/xnhsjgexf-eluybqdalc-bwukgzy-devices/emergen cy-us e-authorizations us Medhat Briggs MD MICROBIOLOGY - GENERAL ORDERAB LES Final Result [facility] [address] [place] [address], [place] documented in this encounter Visit Diagnoses Not on filedocumented in this encounter Additional Health Concerns Infection Onset Date Last Indicated Resolved Time COVID - 19 01/11/2021 06/28/2021 07/18/2021 12:1 6 AM CDT COVID - 19 07/19/2021 10/18/2021 10/28/2021 12:1 6 AM CDT COVID - 19 11/01/2021 02/28/2022 03/10/2022 12:1 6 AM DIRECTOR REGULATORY AGENCY COVID - 19 04/25/2022 07/04/2022 07/14/2022 12:1 6 AM CDT documented as of this encounter Care Teams Research Rn Spec Relationship Specialty Start Date End Date Felisha Yu MD PCP - General Family Medicine 07/20/15 04/21/22 Jose Allan MD PCP - General Family Medicine 04/22/22 07/14/23 Provider, None [place] PCP - General 03/08/24 documented as of this encounter
--- OUTSIDE RECORDS SUMMARY | 2024-05-14 22:14 | XMS_ITS | Encounter Summary ---
Author Organization [facility] Address [address] [place] [address] Phone Care Team Providers Care Support Team Assoc Name Role Phone Felisha Yu MD Primary Care Provider [phone] Jose Allan MD Primary Care Provider [phone] Provider, None Primary Care Provider Unavailabl e Encounter Details Date Type Department Care Team (Late st Contact Info) Description 03/29/2021 Lab Requisition [facility] Laboratory Services 1 [place] [address] Medhat Briggs MD [address] [place] [address] [address] [place] [address] Encounter for screening for COVID-19 Social History [...] Associated Diagnosis Comments SARS-COV-2 BY MOLECULAR Routine 03/29/2021 7:53 AM SLURRY TANK OPERATOR Encounter for screening for COVID-19 documented in this encounter Results * SARS-COV-2 BY MOLECULAR (03/29/2021 7:53 AM SLURRY TANK OPERATOR) SARSCOV2 NOT DETECTED (Referen ce Range for this test is Not Detected ) [facility] THERMOFISHER FAST DX 03/30/2021 8:03 AM SLURRY TANK OPERATOR [facility] Comment:This test was perfor med by a RT-PCR method. Other No Phlebotomy Charged / Unknown 03/29/2021 7:53 AM SLURRY TANK OPERATOR 03/29/2021 11:17 AM SLURRY TANK OPERATOR Narrative [facility] - 03/30/2021 8:03 AM SLURRY TANK OPERATOR Authorized Fact Sheets about this test for providers and patients are available at: https://www.fda.gov/medical-devices/dlagxrxew-mrkictyztl-rbhsxoe-devices/emergen cy-us e-authorizations us Medhat Briggs MD MICROBIOLOGY - GENERAL ORDERAB LES Final Result [facility] [address] [place] [address], [place] documented in this encounter Visit Diagnoses Diagnosis Encounter for screening for COVID-19 documented in this encounter Additional Health Concerns Infection Onset Date Last Indicated Resolved Time COVID - 19 01/11/2021 06/28/2021 07/18/2021 12:1 6 AM CDT COVID - 19 07/19/2021 10/18/2021 10/28/2021 12:1 6 AM CDT COVID - 19 11/01/2021 02/28/2022 03/10/2022 12:1 6 AM SLURRY TANK OPERATOR COVID - 19 04/25/2022 07/04/2022 07/14/2022 12:1 6 AM CDT documented as of this encounter Care Teams Support Team Assoc Relationship Specialty Start Date End Date Felisha Yu MD PCP - General Family Medicine 07/20/15 04/21/22 Jose Allan MD PCP - General Family Medicine 04/22/22 07/14/23 Provider, None [place] PCP - General 03/08/24 documented as of this encounter
--- OUTSIDE RECORDS SUMMARY | 2024-05-14 22:14 | XMS_ITS | Encounter Summary ---
Author Organization [facility] Address [address] [place] [address] Phone Care Team Providers Care End Lathe Operator Name Role Phone Felisha Yu MD Primary Care Provider [phone] Jose Allan MD Primary Care Provider [phone] Provider, None Primary Care Provider Unavailabl e Encounter Details Date Type Department Care Team (Late st Contact Info) Description 05/10/2021 Lab Requisition [facility] Laboratory Services 1 [place] [address] Medhat Briggs MD [address] [place] [address] [address] [place] [address] Encounter for screening for COVID-19 Social History [...] Associated Diagnosis Comments SARS-COV-2 BY MOLECULAR Routine 05/10/2021 7:59 AM NET SORTER Encounter for screening for COVID-19 documented in this encounter Results * SARS-COV-2 BY MOLECULAR (05/10/2021 7:59 AM NET SORTER) SARSCOV2 NOT DETECTED (Referen ce Range for this test is Not Detected ) [facility] THERMOFISHER FAST DX 05/12/2021 9:46 AM NET SORTER [facility] Comment:This test was perfor med by a RT-PCR method. Other Non-Phlebotomy Collection / Unknown 05/10/2021 7:59 AM NET SORTER 05/10/2021 12:34 PM NET SORTER Narrative [facility] - 05/12/2021 9:46 AM NET SORTER Authorized Fact Sheets about this test for providers and patients are available at: https://www.fda.gov/medical-devices/bmkddxvis-rqawemzvnj-aavawkj-devices/emergen cy-us e-authorizations us Medhat Briggs MD MICROBIOLOGY - GENERAL ORDERAB LES Final Result [facility] [address] [place] [id number], [place] documented in this encounter Visit Diagnoses Diagnosis Encounter for screening for COVID-19 documented in this encounter Additional Health Concerns Infection Onset Date Last Indicated Resolved Time COVID - 19 01/11/2021 06/28/2021 07/18/2021 12:1 6 AM CDT COVID - 19 07/19/2021 10/18/2021 10/28/2021 12:1 6 AM CDT COVID - 19 11/01/2021 02/28/2022 03/10/2022 12:1 6 AM NET SORTER COVID - 19 04/25/2022 07/04/2022 07/14/2022 12:1 6 AM CDT documented as of this encounter Care Teams End Lathe Operator Relationship Specialty Start Date End Date Felisha Yu MD PCP - General Family Medicine 07/20/15 04/21/22 Jose Allan MD PCP - General Family Medicine 04/22/22 07/14/23 Provider, None [place] PCP - General 03/08/24 documented as of this encounter
--- OUTSIDE RECORDS SUMMARY | 2024-05-14 22:14 | XMS_ITS | Encounter Summary ---
Author Organization [facility] Address [address] [place] [address] Phone Care Team Providers Care Divemaster Name Role Phone Felisha Yu MD Primary Care Provider [phone] Jose Allan MD Primary Care Provider [phone] Provider, None Primary Care Provider Unavailabl e Encounter Details Date Type Department Care Team (Late st Contact Info) Description 10/04/2021 Lab Requisition [facility] Laboratory Services [address] [place] [address] Medhat Briggs MD [address] [place] [address] [address] [place] [address] Encounter for screening for COVID-19 Social History [...] Associated Diagnosis Comments SARS-COV-2 BY MOLECULAR Routine 10/04/2021 7:44 AM CDT Encounter for screening for COVID-19 documented in this encounter Results * SARS-COV-2 BY MOLECULAR (10/04/2021 7:44 AM CDT) SARSCOV2 NOT DETECTED (Referen ce Range for this test is Not Detected ) [facility] THERMOFISHER FAST DX 10/05/2021 8:32 AM CDT [facility] Comment:This test was perfor med by a RT-PCR method. Other Non-Phlebotomy Collection / Unknown 10/04/2021 7:44 AM CDT 10/04/2021 10:59 AM CDT Narrative [facility] - 10/05/2021 8:32 AM CDT Authorized Fact Sheets about this test for providers and patients are available at: https://www.fda.gov/medical-devices/cbssvnatj-xiselzqwag-rdlcpoj-devices/emergen -us e-authorizations us Medhat Briggs MD MICROBIOLOGY - GENERAL ORDERAB LES Final Result [facility] [address] [place] [address], documented in this encounter Visit Diagnoses Diagnosis Encounter for screening for COVID-19 documented in this encounter Additional Health Concerns Infection Onset Date Last Indicated Resolved Time COVID - 19 07/19/2021 10/18/2021 10/28/2021 12:1 6 AM CDT COVID - 19 11/01/2021 02/28/2022 03/10/2022 12:1 6 AM WINDOWS SERVER SUPPORT TECHNICIAN COVID - 19 04/25/2022 07/04/2022 07/14/2022 12:1 6 AM CDT documented as of this encounter Care Teams Divemaster Relationship Specialty Start Date End Date Felisha Yu MD PCP - General Family Medicine 07/20/15 04/21/22 Jose Allan MD PCP - General Family Medicine 04/22/22 07/14/23 Provider, None [place] PCP - General 03/08/24 documented as of this encounter
--- OUTSIDE RECORDS SUMMARY | 2024-05-14 22:14 | XMS_ITS | Encounter Summary ---
Author Organization [facility] Address [address] [place] [address] Phone Care Team Providers Care Restaurant Lead Name Role Phone Felisha Yu MD Primary Care Provider [phone] Jose Allan MD Primary Care Provider [phone] Provider, None Primary Care Provider Unavailabl e Encounter Details Date Type Department Care Team (Late st Contact Info) Description 01/18/2021 Lab Requisition [facility] Laboratory Services [address] [place] [address] Medhat Briggs MD [address] [place] [address] [address] [place] [address] Encounter for screening for COVID-19 Social History [...] Associated Diagnosis Comments SARS-COV-2 BY MOLECULAR Routine 01/18/2021 8:03 AM CDT Encounter for screening for COVID-19 documented in this encounter Results * SARS-COV-2 BY MOLECULAR (01/18/2021 8:03 AM CDT) SARSCOV2 NOT DETECTED (Referen ce Range for this test is Not Detected ) [facility] THERMOFISHER FAST DX 01/19/2021 6:36 AM CDT [facility] Comment:This test was perfor med by a RT-PCR method. Other Non-Phlebotomy Collection / Unknown 01/18/2021 8:03 AM CDT 01/18/2021 11:11 AM CDT Narrative [facility] - 01/19/2021 6:36 AM CDT Authorized Fact Sheets about this test for providers and patients are available at: https://www.fda.gov/medical-devices/vjgyqoxnq-oaussyvgbc-jthahmi-devices/emergen -us e-authorizations us Medhat Briggs MD MICROBIOLOGY - GENERAL ORDERAB LES Final Result [facility] [address] [place] [address], documented in this encounter Visit Diagnoses Diagnosis Encounter for screening for COVID-19 documented in this encounter Additional Health Concerns Infection Onset Date Last Indicated Resolved Time COVID - 19 01/11/2021 06/28/2021 07/18/2021 12:1 6 AM CDT COVID - 19 07/19/2021 10/18/2021 10/28/2021 12:1 6 AM CDT COVID - 19 11/01/2021 02/28/2022 03/10/2022 12:1 6 AM 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
--- OUTSIDE RECORDS SUMMARY | 2024-05-14 22:14 | XMS_ITS | Encounter Summary ---
Author Organization [facility] Address [address] [place] [address] Phone Care Team Providers Care Outcomes Specialist Name Role Phone Felisha Yu MD Primary Care Provider [phone] Jose Allan MD Primary Care Provider [phone] Provider, None Primary Care Provider Unavailabl e Encounter Details Date Type Department Care Team (Late st Contact Info) Description 12/06/2021 Lab Requisition [facility] Laboratory Services 1 [place] [address] Medhat Briggs MD [address] [place] [address] [address] [place] [address] Encounter for screening for COVID-19 Social History [...] Associated Diagnosis Comments SARS-COV-2 BY MOLECULAR Routine 12/06/2021 7:51 AM CDT Encounter for screening for COVID-19 documented in this encounter Results * SARS-COV-2 BY MOLECULAR (12/06/2021 7:51 AM CDT) SARSCOV2 NOT DETECTED (Referen ce Range for this test is Not Detected ) [facility] THERMOFISHER FAST DX 12/07/2021 8:15 AM CDT [facility] Comment:This test was perfor med by a RT-PCR method. Other Non-Phlebotomy Collection / Unknown 12/06/2021 7:51 AM CDT 12/06/2021 11:45 AM CDT Narrative [facility] - 12/07/2021 8:15 AM CDT Authorized Fact Sheets about this test for providers and patients are available at: https://www.fda.gov/medical-devices/rjgnpvxhk-eqqoxyaaay-qrkanft-devices/emergen -us e-authorizations us Medhat Briggs MD MICROBIOLOGY - GENERAL ORDERAB LES Final Result [facility] [address] [place] [address], documented in this encounter Visit Diagnoses Diagnosis Encounter for screening for COVID-19 documented in this encounter Additional Health Concerns Infection Onset Date Last Indicated Resolved Time COVID - 19 11/01/2021 02/28/2022 03/10/2022 12:1 6 AM 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
--- OUTSIDE RECORDS SUMMARY | 2024-05-14 22:14 | XMS_ITS | Encounter Summary ---
Author Organization [facility] Address [address] [place] [address] Phone Care Team Providers Care Svp Of Digital Name Role Phone Felisha Yu MD Primary Care Provider [phone] Jose Allan MD Primary Care Provider [phone] Provider, None Primary Care Provider Unavailabl e Encounter Details Date Type Department Care Team (Late st Contact Info) Description 03/01/2021 Lab Requisition [facility] Laboratory Services [address] [place] [address] Medhat Briggs MD [address] [place] [address] [address] [place] [address] Encounter for screening for COVID-19 Social History [...] Associated Diagnosis Comments SARS-COV-2 BY MOLECULAR Routine 03/01/2021 7:45 AM URBAN SOCIOLOGIST Encounter for screening for COVID-19 documented in this encounter Results * SARS-COV-2 BY MOLECULAR (03/01/2021 7:45 AM URBAN SOCIOLOGIST) SARSCOV2 NOT DETECTED (Referen ce Range for this test is Not Detected ) [facility] THERMOFISHER FAST DX 03/02/2021 1:33 PM URBAN SOCIOLOGIST [facility] Comment:This test was perfor med by a RT-PCR method. Other No Phlebotomy Charged / Unknown 03/01/2021 7:45 AM URBAN SOCIOLOGIST 03/01/2021 10:17 AM URBAN SOCIOLOGIST Narrative [facility] - 03/02/2021 1:33 PM URBAN SOCIOLOGIST Authorized Fact Sheets about this test for providers and patients are available at: https://www.fda.gov/medical-devices/vpnlyusht-onvcsrmprk-wlawpmd-devices/emergen cy-us e-authorizations us Medhat Briggs MD MICROBIOLOGY - GENERAL ORDERAB LES Final Result [facility] [address] [place] [address], [place] documented in this encounter Visit Diagnoses Diagnosis Encounter for screening for COVID-19 documented in this encounter Additional Health Concerns Infection Onset Date Last Indicated Resolved Time COVID - 19 01/11/2021 06/28/2021 07/18/2021 12:1 6 AM CDT COVID - 19 07/19/2021 10/18/2021 10/28/2021 12:1 6 AM CDT COVID - 19 11/01/2021 02/28/2022 03/10/2022 12:1 6 AM URBAN SOCIOLOGIST COVID - 19 04/25/2022 07/04/2022 07/14/2022 12:1 6 AM CDT documented as of this encounter Care Teams Svp Of Digital Relationship Specialty Start Date End Date Felisha Yu MD PCP - General Family Medicine 07/20/15 04/21/22 Jose Allan MD PCP - General Family Medicine 04/22/22 07/14/23 Provider, None [place] PCP - General 03/08/24 documented as of this encounter
--- OUTSIDE RECORDS SUMMARY | 2024-05-14 22:14 | XMS_ITS | Encounter Summary ---
Author Organization [facility] Address [address] [place] [address] Phone Care Team Providers Care Factory Helper Name Role Phone Felisha Yu MD Primary Care Provider [phone] Jose Allan MD Primary Care Provider [phone] Provider, None Primary Care Provider Unavailabl e Encounter Details Date Type Department Care Team (Late st Contact Info) Description 06/28/2021 Lab Requisition [facility] Laboratory Services [address] [place] [address] Medhat Briggs MD [address] [place] [address] [address] [place] [address] Encounter for screening for COVID-19 Social History [...] Associated Diagnosis Comments SARS-COV-2 BY MOLECULAR Routine 06/28/2021 7:03 AM 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 Other Non-Phlebotomy Collection / Unknown 06/28/2021 7:03 AM CYLINDER DIE MACHINE HELPER 06/28/2021 10:46 AM CYLINDER DIE MACHINE HELPER Narrative [facility] - 06/28/2021 11:03 PM CYLINDER DIE MACHINE HELPER Authorized Fact Sheets about this test for providers and patients are available at: https://www.fda.gov/medical-devices/bwefjosto-bpqyifrkbr-hvfqtno-devices/emergen cy-us e-authorizations us Medhat Briggs MD MICROBIOLOGY - GENERAL ORDERAB LES Final Result [facility] [address] [id number], [place] documented in this encounter Visit Diagnoses Diagnosis Encounter for screening for COVID-19 documented in this encounter Additional Health Concerns Infection Onset Date Last Indicated Resolved Time COVID - 19 01/11/2021 06/28/2021 07/18/2021 12:1 6 AM CDT COVID - 19 07/19/2021 10/18/2021 10/28/2021 12:1 6 AM CDT COVID - 19 11/01/2021 02/28/2022 03/10/2022 12:1 6 AM CYLINDER DIE MACHINE HELPER COVID - 19 04/25/2022 07/04/2022 07/14/2022 12:1 6 AM CDT documented as of this encounter Care Teams Factory Helper Relationship Specialty Start Date End Date Felisha Yu MD PCP - General Family Medicine 07/20/15 04/21/22 Jose Allan MD PCP - General Family Medicine 04/22/22 07/14/23 Provider, None [place] PCP - General 03/08/24 documented as of this encounter
--- OUTSIDE RECORDS SUMMARY | 2024-05-14 22:14 | XMS_ITS | Encounter Summary ---
Author Organization [facility] Address [address] [facility] [address] [facility] [address] [facility] [place] [address] Phone Care Team Providers Care Assistant Clinical Nurse Manager Name Role Phone Felisha Yu MD Primary Care Provider Jose Allan MD Primary Care Provider [phone] Provider, None Primary Care Provider Unavailabl e Encounter Details Date Type Department Care Team (Late st Contact Info) Description 11/08/2021 Lab Requisition [facility] Laboratory Services 1 [place] [address] Medhat Briggs MD [address] [place] [address] [address] [place] [address] Encounter for screening for COVID-19 Social History [...] Associated Diagnosis Comments SARS-COV-2 BY MOLECULAR Routine 11/08/2021 7:34 AM CDT Encounter for screening for COVID-19 documented in this encounter Results * SARS-COV-2 BY MOLECULAR (11/08/2021 7:34 AM CDT) SARSCOV2 NOT DETECTED (Referen ce Range for this test is Not Detected ) [facility] THERMOFISHER FAST DX 11/09/2021 7:37 AM CDT [facility] Comment:This test was perfor med by a RT-PCR method. Other Non-Phlebotomy Collection / Unknown 11/08/2021 7:34 AM CDT 11/08/2021 1:31 PM CDT Narrative [facility] - 11/09/2021 7:37 AM CDT Authorized Fact Sheets about this test for providers and patients are available at: https://www.fda.gov/medical-devices/gydnrpuos-ycdbinlltl-lfnbkry-devices/emergen -us e-authorizations us Medhat Briggs MD MICROBIOLOGY - GENERAL ORDERAB LES Final Result [facility] [address] [place] [address], documented in this encounter Visit Diagnoses Diagnosis Encounter for screening for COVID-19 documented in this encounter Additional Health Concerns Infection Onset Date Last Indicated Resolved Time COVID - 19 11/01/2021 02/28/2022 03/10/2022 12:1 6 AM ISO COORDINATOR COVID - 19 04/25/2022 07/04/2022 07/14/2022 12:1 6 AM CDT documented as of this encounter Care Teams Assistant Clinical Nurse Manager Relationship Specialty Start Date End Date Felisha Yu MD PCP - General Family Medicine 07/20/15 04/21/22 Jose Allan MD PCP - General Family Medicine 04/22/22 07/14/23 Provider, None [place] PCP - General 03/08/24 documented as of this encounter
--- OUTSIDE RECORDS SUMMARY | 2024-05-14 22:14 | XMS_ITS | Encounter Summary ---
Author Organization [facility] Address [address] [place] [address] Phone Care Team Providers Care Coach Driver Name Role Phone Felisha Yu MD Primary Care Provider [phone] Jose Allan MD Primary Care Provider [phone] Provider, None Primary Care Provider Unavailabl e Encounter Details Date Type Department Care Team (Late st Contact Info) Description 01/25/2021 Lab Requisition [facility] Laboratory Services 1 [place] [id number] Medhat Briggs MD [address] [place] [address] [address] [place] [address] Social History Tobacco Use Types Packs/Day Years [...] Associated Diagnosis Comments SARS-COV-2 BY MOLECULAR Routine 01/25/2021 8:11 AM CDT documented in this encounter Results * SARS-COV-2 BY MOLECULAR (01/25/2021 8:11 AM CDT) SARSCOV2 NOT DETECTED (Referen ce Range for this test is Not Detected ) [facility] THERMOFISHER FAST DX 01/26/2021 6:22 AM CDT [facility] Comment:This test was perfor med by a RT-PCR method. Other Non-Phlebotomy Collection / Unknown 01/25/2021 8:11 AM CDT 01/25/2021 10:27 AM CDT Narrative [facility] - 01/26/2021 6:22 AM CDT Authorized Fact Sheets about this test for providers and patients are available at: https://www.fda.gov/medical-devices/rfbfcuabs-pggfqtgnym-eleqfss-devices/emergen -us e-authorizations us Medhat Briggs MD MICROBIOLOGY - GENERAL ORDERAB LES Final Result [facility] [address] [place] [address], documented in this encounter Visit Diagnoses Not on filedocumented in this encounter Additional Health Concerns Infection Onset Date Last Indicated Resolved Time COVID - 19 01/11/2021 06/28/2021 07/18/2021 12:1 6 AM CDT COVID - 19 07/19/2021 10/18/2021 10/28/2021 12:1 6 AM CDT COVID - 19 11/01/2021 02/28/2022 03/10/2022 12:1 6 AM TOOL SETTER COVID - 19 04/25/2022 07/04/2022 07/14/2022 12:1 6 AM CDT documented as of this encounter Care Teams Coach Driver Relationship Specialty Start Date End Date Felisha Yu MD PCP - General Family Medicine 07/20/15 04/21/22 Jose Allan MD PCP - General Family Medicine 04/22/22 07/14/23 Provider, None [place] PCP - General 03/08/24 documented as of this encounter
--- OUTSIDE RECORDS SUMMARY | 2024-05-14 22:14 | XMS_ITS | Encounter Summary ---
Author Organization [facility] Address [address] [place] [address] Phone Care Team Providers Care Senior Property Accountant Name Role Phone Felisha Yu MD Primary Care Provider [phone] Jose Allan MD Primary Care Provider [phone] Provider, None Primary Care Provider Unavailabl e Encounter Details Date Type Department Care Team (Late st Contact Info) Description 07/26/2021 Lab Requisition [facility] Laboratory Services 1 [place] [address] Medhat Briggs MD [address] [place] [address] [address] [place] [address] Encounter for screening for other viral diseases Social History Tobacco Use Types Packs/Day Years [...] Associated Diagnosis Comments SARS-COV-2 BY MOLECULAR Routine 07/26/2021 7:12 AM CDT Encounter for screening for other viral diseases documented in this encounter Results * SARS-COV-2 BY MOLECULAR (07/26/2021 7:12 AM CDT) SARSCOV2 NOT DETECTED (Referen ce Range for this test is Not Detected ) [facility] THERMOFISHER FAST DX 07/27/2021 11:25 AM CDT [facility] Comment:This test was perfor med by a RT-PCR method. Other No Phlebotomy Charged / Unknown 07/26/2021 7:12 AM CDT 07/26/2021 11:43 AM CDT Narrative [facility] - 07/27/2021 11:25 AM CDT Authorized Fact Sheets about this test for providers and patients are available at: https://www.fda.gov/medical-devices/tnmhgyeco-msaxqdclsg-qslzdqs-devices/emergen cy-us e-authorizations us Medhat Briggs MD MICROBIOLOGY - GENERAL ORDERAB LES Final Result [facility] [address] [place] [address], documented in this encounter Visit Diagnoses Diagnosis Encounter for screening for other viral diseases documented in this encounter Additional Health Concerns Infection Onset Date Last Indicated Resolved Time COVID - 19 07/19/2021 10/18/2021 10/28/2021 12:1 6 AM CDT COVID - 19 11/01/2021 02/28/2022 03/10/2022 12:1 6 AM COMPLAINT SUPERVISOR COVID - 19 04/25/2022 07/04/2022 07/14/2022 12:1 6 AM CDT documented as of this encounter Care Teams Senior Property Accountant Relationship Specialty Start Date End Date Felisha Yu MD PCP - General Family Medicine 07/20/15 04/21/22 Jose Allan MD PCP - General Family Medicine 04/22/22 07/14/23 Provider, None [place] PCP - General 03/08/24 documented as of this encounter
--- OUTSIDE RECORDS SUMMARY | 2024-05-14 22:14 | XMS_ITS | Encounter Summary ---
Author Organization [facility] Address [address] [facility] [place] [address] Phone Care Team Providers Care Live In Caregiver Name Role Phone Felisha Yu MD Primary Care Provider [phone] Jose Allan MD Primary Care Provider [phone] Provider, None Primary Care Provider Unavailabl e Encounter Details Date Type Department Care Team (Late st Contact Info) Description 09/13/2021 Lab Requisition [facility] Laboratory Services 1 [place] [address] Medhat Briggs MD [address] [place] [address] [address] [place] [address] Encounter for screening for COVID-19 Social History [...] Associated Diagnosis Comments SARS-COV-2 BY MOLECULAR Routine 09/13/2021 7:31 AM CDT Encounter for screening for COVID-19 documented in this encounter Results * SARS-COV-2 BY MOLECULAR (09/13/2021 7:31 AM CDT) SARSCOV2 NOT DETECTED (Referen ce Range for this test is Not Detected ) [facility] THERMOFISHER FAST DX 09/14/2021 9:19 AM CDT [facility] Comment:This test was perfor med by a RT-PCR method. Other Venipuncture / Unknown 09/13/2021 7:31 AM CDT 09/13/2021 12:23 PM CDT Narrative [facility] - 09/14/2021 9:19 AM CDT Authorized Fact Sheets about this test for providers and patients are available at: https://www.fda.gov/medical-devices/qhiixsfvx-fdlsxvdtmi-rmszvax-devices/emergen cy-us e-authorizations us Medhat Briggs MD MICROBIOLOGY - GENERAL ORDERAB LES Final Result [facility] [address] [place] [id number], documented in this encounter Visit Diagnoses Diagnosis Encounter for screening for COVID-19 documented in this encounter Additional Health Concerns Infection Onset Date Last Indicated Resolved Time COVID - 19 07/19/2021 10/18/2021 10/28/2021 12:1 6 AM CDT COVID - 19 11/01/2021 02/28/2022 03/10/2022 12:1 6 AM ELECTRIC ENGINE MECHANIC COVID - 19 04/25/2022 07/04/2022 07/14/2022 12:1 6 AM CDT documented as of this encounter Care Teams Live In Caregiver Relationship Specialty Start Date End Date Felisha Yu MD PCP - General Family Medicine 07/20/15 04/21/22 Jose Allan MD PCP - General Family Medicine 04/22/22 07/14/23 Provider, None [place] PCP - General 03/08/24 documented as of this encounter
--- OUTSIDE RECORDS SUMMARY | 2024-05-14 22:14 | XMS_ITS | Encounter Summary ---
Author Organization [facility] Address [address] [place] [address] Phone Care Team Providers Care Guest Service Host Name Role Phone Felisha Yu MD Primary Care Provider [phone] Jose Allan MD Primary Care Provider [phone] Provider, None Primary Care Provider Unavailabl e Encounter Details Date Type Department Care Team (Late st Contact Info) Description 08/02/2021 Lab Requisition [facility] Laboratory Services 1 [place] [address] Medhat Briggs MD [address] [place] [address] [address] [place] [address] Encounter for screening for COVID-19 Social History [...] Associated Diagnosis Comments SARS-COV-2 BY MOLECULAR Routine 08/02/2021 7:51 AM CDT Encounter for screening for COVID-19 documented in this encounter Results * SARS-COV-2 BY MOLECULAR (08/02/2021 7:51 AM CDT) SARSCOV2 NOT DETECTED (Referen ce Range for this test is Not Detected ) [facility] THERMOFISHER FAST DX 08/03/2021 10:50 AM CDT [facility] Comment:This test was perfor med by a RT-PCR method. Other No Phlebotomy Charged / Unknown 08/02/2021 7:51 AM CDT 08/02/2021 12:30 PM CDT Narrative [facility] - 08/03/2021 10:50 AM CDT Authorized Fact Sheets about this test for providers and patients are available at: https://www.fda.gov/medical-devices/szjpesdfm-jicmqmgfqu-yqvzgij-devices/emergen -us e-authorizations us Medhat Briggs MD MICROBIOLOGY - GENERAL ORDERAB LES Final Result [facility] [address] [place] [address], documented in this encounter Visit Diagnoses Diagnosis Encounter for screening for COVID-19 documented in this encounter Additional Health Concerns Infection Onset Date Last Indicated Resolved Time COVID - 19 07/19/2021 10/18/2021 10/28/2021 12:1 6 AM CDT COVID - 19 11/01/2021 02/28/2022 03/10/2022 12:1 6 AM FUR DRY CLEANER COVID - 19 04/25/2022 07/04/2022 07/14/2022 12:1 6 AM CDT documented as of this encounter Care Teams Guest Service Host Relationship Specialty Start Date End Date Felisha Yu MD PCP - General Family Medicine 07/20/15 04/21/22 Jose Allan MD PCP - General Family Medicine 04/22/22 07/14/23 Provider, None [place] PCP - General 03/08/24 documented as of this encounter
--- OUTSIDE RECORDS SUMMARY | 2024-05-14 22:14 | XMS_ITS | Encounter Summary ---
Author Organization [facility] Address [address] [place] [address] Phone Care Team Providers Care Customer Service Technician Name Role Phone Felisha Yu MD Primary Care Provider [phone] Jose Allan MD Primary Care Provider [phone] Provider, None Primary Care Provider Unavailabl e Encounter Details Date Type Department Care Team (Late st Contact Info) Description 12/20/2021 Lab Requisition [facility] Laboratory Services [address] [place] [address] Medhat Briggs MD [address] [place] [address] [address] [place] [address] Encounter for screening for COVID-19 Social History [...] Associated Diagnosis Comments SARS-COV-2 BY MOLECULAR Routine 12/20/2021 8:10 AM CDT Encounter for screening for COVID-19 documented in this encounter Results * SARS-COV-2 BY MOLECULAR (12/20/2021 8:10 AM CDT) SARSCOV2 NOT DETECTED (Referen ce Range for this test is Not Detected ) [facility] THERMOFISHER FAST DX 12/21/2021 6:15 AM CDT [facility] Comment:This test was perfor med by a RT-PCR method. Other Non-Phlebotomy Collection / Unknown 12/20/2021 8:10 AM CDT 12/20/2021 12:42 PM CDT Narrative [facility] - 12/21/2021 6:15 AM CDT Authorized Fact Sheets about this test for providers and patients are available at: https://www.fda.gov/medical-devices/gdyngzmxf-shufaliwfe-zinfcws-devices/emergen -us e-authorizations us Medhat Briggs MD MICROBIOLOGY - GENERAL ORDERAB LES Final Result [facility] [address] [place] [address], documented in this encounter Visit Diagnoses Diagnosis Encounter for screening for COVID-19 documented in this encounter Additional Health Concerns Infection Onset Date Last Indicated Resolved Time COVID - 19 11/01/2021 02/28/2022 03/10/2022 12:1 6 AM CONDUCTOR SLEEPING CAR COVID - 19 04/25/2022 07/04/2022 07/14/2022 12:1 6 AM CDT documented as of this encounter Care Teams Customer Service Technician Relationship Specialty Start Date End Date Felisha Yu MD PCP - General Family Medicine 07/20/15 04/21/22 Jose Allan MD PCP - General Family Medicine 04/22/22 07/14/23 Provider, None [place] PCP - General 03/08/24 documented as of this encounter
--- OUTSIDE RECORDS SUMMARY | 2024-05-14 22:14 | XMS_ITS | Encounter Summary ---
Author Organization [facility] Address [address] [address] [place] [address] Phone Care Team Providers Care Marble Coper Name Role Phone Felisha Yu MD Primary Care Provider Jose Allan MD Primary Care Provider [phone] Provider, None Primary Care Provider Unavailabl e Encounter Details Date Type Department Care Team (Late st Contact Info) Description 10/11/2021 Lab Requisition [facility] Laboratory Services [address] [place] [address] Medhat Briggs MD [address] [place] [address] [address] [place] [address] Encounter for screening for COVID-19 Social History [...] Associated Diagnosis Comments SARS-COV-2 BY MOLECULAR Routine 10/11/2021 7:48 AM CDT Encounter for screening for COVID-19 documented in this encounter Results * SARS-COV-2 BY MOLECULAR (10/11/2021 7:48 AM CDT) SARSCOV2 NOT DETECTED (Referen ce Range for this test is Not Detected ) [facility] THERMOFISHER FAST DX 10/12/2021 6:17 AM CDT [facility] Comment:This test was perfor med by a RT-PCR method. Other Non-Phlebotomy Collection / Unknown 10/11/2021 7:48 AM CDT 10/11/2021 11:10 AM CDT Narrative [facility] - 10/12/2021 6:17 AM CDT Authorized Fact Sheets about this test for providers and patients are available at: https://www.fda.gov/medical-devices/cnmcpdeql-lciisizlcd-igblwth-devices/emergen -us e-authorizations us Medhat Briggs MD MICROBIOLOGY - GENERAL ORDERAB LES Final Result [facility] [address] [place] [address], documented in this encounter Visit Diagnoses Diagnosis Encounter for screening for COVID-19 documented in this encounter Additional Health Concerns Infection Onset Date Last Indicated Resolved Time COVID - 19 07/19/2021 10/18/2021 10/28/2021 12:1 6 AM CDT COVID - 19 11/01/2021 02/28/2022 03/10/2022 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
--- OUTSIDE RECORDS SUMMARY | 2024-05-14 22:14 | XMS_ITS | Encounter Summary ---
Author Organization [facility] Address [address] [facility] [address] [place] [address] Phone Care Team Providers Care Credit Clerk Name Role Phone Felisha Yu MD Primary Care Provider [phone] Jose Allan MD Primary Care Provider [phone] Provider, None Primary Care Provider Unavailabl e Encounter Details Date Type Department Care Team (Late st Contact Info) Description 05/17/2021 Lab Requisition [facility] Laboratory Services [address] [place] [address] Medhat Briggs MD [address] [place] [address] [address] [place] [address] Encounter for screening for COVID-19 Social History [...] Associated Diagnosis Comments SARS-COV-2 BY MOLECULAR Routine 05/17/2021 7:07 AM DOBBY LOOM WEAVER Encounter for screening for COVID-19 documented in this encounter Results * SARS-COV-2 BY MOLECULAR (05/17/2021 7:07 AM DOBBY LOOM WEAVER) SARSCOV2 NOT DETECTED (Referen ce Range for this test is Not Detected ) [facility] THERMOFISHER FAST DX 05/18/2021 9:00 AM DOBBY LOOM WEAVER [facility] Comment:This test was perfor med by a RT-PCR method. Other Non-Phlebotomy Collection / Unknown 05/17/2021 7:07 AM DOBBY LOOM WEAVER 05/17/2021 11:46 AM DOBBY LOOM WEAVER Narrative [facility] - 05/18/2021 9:00 AM DOBBY LOOM WEAVER Authorized Fact Sheets about this test for providers and patients are available at: https://www.fda.gov/medical-devices/lcizfotti-ghmwzybavu-rkphbld-devices/emergen cy-us e-authorizations us Medhat Briggs MD MICROBIOLOGY - GENERAL ORDERAB LES Final Result [facility] [address] [id number], [place] documented in this encounter Visit Diagnoses Diagnosis Encounter for screening for COVID-19 documented in this encounter Additional Health Concerns Infection Onset Date Last Indicated Resolved Time COVID - 19 01/11/2021 06/28/2021 07/18/2021 12:1 6 AM CDT COVID - 19 07/19/2021 10/18/2021 10/28/2021 12:1 6 AM CDT COVID - 19 11/01/2021 02/28/2022 03/10/2022 12:1 6 AM DOBBY LOOM WEAVER COVID - 19 04/25/2022 07/04/2022 07/14/2022 12:1 6 AM CDT documented as of this encounter Care Teams Credit Clerk Relationship Specialty Start Date End Date Felisha Yu MD PCP - General Family Medicine 07/20/15 04/21/22 Jose Allan MD PCP - General Family Medicine 04/22/22 07/14/23 Provider, None [place] PCP - General 03/08/24 documented as of this encounter
--- OUTSIDE RECORDS SUMMARY | 2024-05-14 22:14 | XMS_ITS | Encounter Summary ---
Author Organization [facility] Address [address] [facility] [place] [address] Phone Care Team Providers Care Interlocker Name Role Phone Felisha Yu MD Primary Care Provider [phone] Jose Allan MD Primary Care Provider Provider, None Primary Care Provider Unavailabl e Encounter Details Date Type Department Care Team (Late st Contact Info) Description 11/22/2021 Lab Requisition [facility] Laboratory Services [address] [place] [address] Medhat Briggs MD [address] [place] [address] [address] [place] [address] Encounter for screening for COVID-19 Social History [...] Associated Diagnosis Comments SARS-COV-2 BY MOLECULAR Routine 11/22/2021 8:49 AM CDT Encounter for screening for COVID-19 documented in this encounter Results * SARS-COV-2 BY MOLECULAR (11/22/2021 8:49 AM CDT) SARSCOV2 NOT DETECTED (Referenc e Range for this test is Not Detected) [facility] DI[facility] LIAISON MDX [id number] 11/23/2021 10:34 PM CDT [facility] Comment:This test was perfor med by a RT-PCR method. Other Non-Phlebotomy Collection / Unknown 11/22/2021 8:49 AM CDT 11/22/2021 1:17 PM CDT Narrative [facility] - 11/23/2021 10:34 PM CDT Authorized Fact Sheets about this test for providers and patients are available at: https://www.fda.gov/medical-devices/naccoiiti-lxuqjvbkxl-ymlsiqy-devices/emergen -us e-authorizations us Medhat Briggs MD MICROBIOLOGY - GENERAL ORDERAB LES Final Result [facility] [address] [place] [id number], documented in this encounter Visit Diagnoses Diagnosis Encounter for screening for COVID-19 documented in this encounter Additional Health Concerns Infection Onset Date Last Indicated Resolved Time COVID - 19 11/01/2021 02/28/2022 03/10/2022 12:1 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
--- OUTSIDE RECORDS SUMMARY | 2024-05-14 22:14 | XMS_ITS | Encounter Summary ---
Author Organization [facility] Address [address] [facility] [place] [address] Phone Care Team Providers Care Location Director Name Role Phone Felisha Yu MD Primary Care Provider [phone] Jose Allan MD Primary Care Provider [phone] Provider, None Primary Care Provider Unavailabl e Encounter Details Date Type Department Care Team (Late st Contact Info) Description 02/22/2021 Lab Requisition [facility] Laboratory Services [address] [place] [address] Medhat Briggs MD [address] [place] [address] [address] [place] [address] Encounter for screening for COVID-19 Social History [...] Associated Diagnosis Comments SARS-COV-2 BY MOLECULAR Routine 02/22/2021 7:30 AM CDT Encounter for screening for COVID-19 documented in this encounter Results * SARS-COV-2 BY MOLECULAR (02/22/2021 7:30 AM CDT) SARSCOV2 NOT DETECTED (Referen ce Range for this test is Not Detected ) [facility] THERMOFISHER FAST DX 02/22/2021 11:51 PM CDT [facility] Comment:This test was perfor med by a RT-PCR method. Other No Phlebotomy Charged / Unknown 02/22/2021 7:30 AM CDT 02/22/2021 10:50 AM CDT Narrative [facility] - 02/22/2021 11:51 PM CDT Authorized Fact Sheets about this test for providers and patients are available at: https://www.fda.gov/medical-devices/ewjremvsv-eybgwgsqps-iabrnib-devices/emergen -us e-authorizations us Medhat Briggs MD MICROBIOLOGY - GENERAL ORDERAB LES Final Result [facility] [address] [place] [address], documented in this encounter Visit Diagnoses Diagnosis Encounter for screening for COVID-19 documented in this encounter Additional Health Concerns Infection Onset Date Last Indicated Resolved Time COVID - 19 01/11/2021 06/28/2021 07/18/2021 12:1 6 AM CDT COVID - 19 07/19/2021 10/18/2021 10/28/2021 12:1 6 AM CDT COVID - 19 11/01/2021 02/28/2022 03/10/2022 12:1 6 AM DIRECTOR POWER COVID - 19 04/25/2022 07/04/2022 07/14/2022 12:1 6 AM CDT documented as of this encounter Care Teams Location Director Relationship Specialty Start Date End Date Felisha Yu MD PCP - General Family Medicine 07/20/15 04/21/22 Jose Allan MD PCP - General Family Medicine 04/22/22 07/14/23 Provider, None [place] PCP - General 03/08/24 documented as of this encounter
--- OUTSIDE RECORDS SUMMARY | 2024-05-14 22:14 | XMS_ITS | Encounter Summary ---
Author Organization [facility] Address [address] [place] [address] Phone Care Team Providers Care Gas Or Water Meter Installer Name Role Phone Felisha Yu MD Primary Care Provider [phone] Jose Allan MD Primary Care Provider [phone] Provider, None Primary Care Provider Unavailabl e Encounter Details Date Type Department Care Team (Late st Contact Info) Description 09/06/2021 Lab Requisition [facility] Services [address] [place] [address] Medhat Briggs MD [address] [place] [address] [address] [place] [address] Encounter for screening for COVID-19 Social History [...] Associated Diagnosis Comments SARS-COV-2 BY MOLECULAR Routine 09/06/2021 7:40 AM CDT Encounter for screening for COVID-19 documented in this encounter Results * SARS-COV-2 BY MOLECULAR (09/06/2021 7:40 AM CDT) SARSCOV2 NOT DETECTED (Referen ce Range for this test is Not Detected ) [facility] THERMOFISHER FAST DX 09/07/2021 6:32 PM CDT [facility] Comment:This test was perfor med by a RT-PCR method. Other Non-Phlebotomy Collection / Unknown 09/06/2021 7:40 AM CDT 09/06/2021 12:13 PM CDT Narrative [facility] - 09/07/2021 6:32 PM CDT Authorized Fact Sheets about this test for providers and patients are available at: https://www.fda.gov/medical-devices/qbqpgqtve-genjomqkgd-dkcmcvd-devices/emergen -us e-authorizations us Medhat Briggs MD MICROBIOLOGY - GENERAL ORDERAB LES Final Result [facility] [address] [place] [address], documented in this encounter Visit Diagnoses Diagnosis Encounter for screening for COVID-19 documented in this encounter Additional Health Concerns Infection Onset Date Last Indicated Resolved Time COVID - 19 07/19/2021 10/18/2021 10/28/2021 12:1 6 AM CDT COVID - 19 11/01/2021 02/28/2022 03/10/2022 12:1 6 AM SURGERY SCHEDULER COVID - 19 04/25/2022 07/04/2022 07/14/2022 12:1 6 AM CDT documented as of this encounter Care Teams Gas Or Water Meter Installer Relationship Specialty Start Date End Date Felisha Yu MD PCP - General Family Medicine 07/20/15 04/21/22 Jose Allan MD PCP - General Family Medicine 04/22/22 07/14/23 Provider, None [place] PCP - General 03/08/24 documented as of this encounter
--- OUTSIDE RECORDS SUMMARY | 2024-05-14 22:14 | XMS_ITS | Encounter Summary ---
Author Organization [facility] Address [address] [place] [address] Phone Care Team Providers Care Wood Processing Worker Name Role Phone Felisha Yu MD Primary Care Provider Jose Allan MD Primary Care Provider [phone] Provider, None Primary Care Provider Unavailabl e Encounter Details Date Type Department Care Team (Late st Contact Info) Description 09/27/[address] [facility] Laboratory Services [address] [place] [address] Medhat Briggs MD [address] [place] [address] [address] [place] [address] Encounter for screening for COVID-19 Social History [...] Associated Diagnosis Comments SARS-COV-2 BY MOLECULAR Routine 09/27/2021 7:55 AM CDT Encounter for screening for COVID-19 documented in this encounter Results * SARS-COV-2 BY MOLECULAR (09/27/2021 7:55 AM CDT) SARSCOV2 NOT DETECTED (Referen ce Range for this test is Not Detected ) [facility] THERMOFISHER FAST DX 09/28/2021 9:54 AM CDT [facility] Comment:This test was perfor med by a RT-PCR method. Other Non-Phlebotomy Collection / Unknown 09/27/2021 7:55 AM CDT 09/27/2021 11:31 AM CDT Narrative [facility] - 09/28/2021 9:54 AM CDT Authorized Fact Sheets about this test for providers and patients are available at: https://www.fda.gov/medical-devices/jyybisqdj-kveyhpmkqg-yaygmel-devices/emergen -us e-authorizations us Medhat Briggs MD MICROBIOLOGY - GENERAL ORDERAB LES Final Result [facility] [address] [place] [address], documented in this encounter Visit Diagnoses Diagnosis Encounter for screening for COVID-19 documented in this encounter Additional Health Concerns Infection Onset Date Last Indicated Resolved Time COVID - 19 07/19/2021 10/18/2021 10/28/2021 12:1 6 AM CDT COVID - 19 11/01/2021 02/28/2022 03/10/2022 12:1 6 AM CAUSE ANALYST COVID - 19 04/25/2022 07/04/2022 07/14/2022 12:1 6 AM CDT documented as of this encounter Care Teams Wood Processing Worker Relationship Specialty Start Date End Date Felisha Yu MD PCP - General Family Medicine 07/20/15 04/21/22 Jose Allan MD PCP - General Family Medicine 04/22/22 07/14/23 Provider, None [place] PCP - General 03/08/24 documented as of this encounter
--- OUTSIDE RECORDS SUMMARY | 2024-05-14 22:14 | XMS_ITS | Encounter Summary ---
Author Organization [facility] Address [address] [address] Phone Care Team Providers Care Pattern Keeper Name Role Phone Felisha Yu MD Primary Care Provider [phone] Jose Allan MD Primary Care Provider [phone] Provider, None Primary Care Provider Unavailabl e Encounter Details Date Type Department Care Team (Late st Contact Info) Description 02/15/2021 Lab Requisition [facility] Services [address] [place] [address] Medhat Briggs MD [address] [place] [address] [address] [place] [address] Encounter for screening for COVID-19 Social History [...] Associated Diagnosis Comments SARS-COV-2 BY MOLECULAR Routine 02/15/2021 7:46 AM CDT Encounter for screening for COVID-19 documented in this encounter Results * SARS-COV-2 BY MOLECULAR (02/15/2021 7:46 AM CDT) SARSCOV2 NOT DETECTED (Referen ce Range for this test is Not Detected ) [facility] THERMOFISHER FAST DX 02/16/2021 9:05 AM CDT [facility] Comment:This test was perfor med by a RT-PCR method. Other Non-Phlebotomy Collection / Unknown 02/15/2021 7:46 AM CDT 02/15/2021 8:39 PM CDT Narrative [facility] - 02/16/2021 9:05 AM CDT Authorized Fact Sheets about this test for providers and patients are available at: https://www.fda.gov/medical-devices/svhwpjuyk-ycllxgpzso-tqylovi-devices/emergen -us e-authorizations us Medhat Briggs MD MICROBIOLOGY - GENERAL ORDERAB LES Final Result [facility] [address] [place] [address], documented in this encounter Visit Diagnoses Diagnosis Encounter for screening for COVID-19 documented in this encounter Additional Health Concerns Infection Onset Date Last Indicated Resolved Time COVID - 19 01/11/2021 06/28/2021 07/18/2021 12:1 6 AM CDT COVID - 19 07/19/2021 10/18/2021 10/28/2021 12:1 6 AM CDT COVID - 19 11/01/2021 02/28/2022 03/10/2022 12:1 6 AM ENGINEERING TECHNICAL WRITER COVID - 19 04/25/2022 07/04/2022 07/14/2022 12:1 6 AM CDT documented as of this encounter Care Teams Pattern Keeper Relationship Specialty Start Date End Date Felisha Yu MD PCP - General Family Medicine 07/20/15 04/21/22 Jose Allan MD PCP - General Family Medicine 04/22/22 07/14/23 Provider, None [place] PCP - General 03/08/24 documented as of this encounter
--- OUTSIDE RECORDS SUMMARY | 2024-05-14 22:14 | XMS_ITS | Encounter Summary ---
Author Organization [facility] Address [address] [place] [address] Phone Care Team Providers Care Insole Filler Name Role Phone Felisha Yu MD Primary Care Provider [phone] Jose Allan MD Primary Care Provider Provider, None Primary Care Provider Unavailabl e Encounter Details Date Type Department Care Team (Late st Contact Info) Description 02/01/2021 Lab Requisition [facility] Laboratory Services [address] [place] [address] Medhat Briggs MD [address] [place] [address] [address] [place] [address] Encounter for screening for COVID-19 Social History [...] Associated Diagnosis Comments SARS-COV-2 BY MOLECULAR Routine 02/01/2021 8:00 AM CDT Encounter for screening for COVID-19 documented in this encounter Results * SARS-COV-2 BY MOLECULAR (02/01/2021 8:00 AM CDT) SARSCOV2 NOT DETECTED (Referen ce Range for this test is Not Detected ) [facility] THERMOF[facility]ER FAST DX 02/02/2021 10:46 AM CDT [facility] Comment:This test was perfor med by a RT-PCR method. Other Non-Phlebotomy Collection / Unknown 02/01/2021 8:00 AM CDT 02/01/2021 10:38 AM CDT Narrative [facility] - 02/02/2021 10:46 AM CDT Authorized Fact Sheets about this test for providers and patients are available at: https://www.fda.gov/medical-devices/moxavhhhd-pakvctcqav-xuntrrz-devices/emergen -us e-authorizations us Medhat Briggs MD MICROBIOLOGY - GENERAL ORDERAB LES Final Result [facility] [address] [place] [address], documented in this encounter Visit Diagnoses Diagnosis Encounter for screening for COVID-19 documented in this encounter Additional Health Concerns Infection Onset Date Last Indicated Resolved Time COVID - 19 01/11/2021 06/28/2021 07/18/2021 12:1 6 AM CDT COVID - 19 07/19/2021 10/18/2021 10/28/2021 12:1 6 AM CDT COVID - 19 11/01/2021 02/28/2022 03/10/2022 12:1 6 AM TOW BAR DRIVER COVID - 19 04/25/2022 07/04/2022 07/14/2022 12:1 6 AM CDT documented as of this encounter Care Teams Insole Filler Relationship Specialty Start Date End Date Felisha Yu MD PCP - General Family Medicine 07/20/15 04/21/22 Jose Allan MD PCP - General Family Medicine 04/22/22 07/14/23 Provider, None [place] PCP - General 03/08/24 documented as of this encounter
--- OUTSIDE RECORDS SUMMARY | 2024-05-14 22:14 | XMS_ITS | Encounter Summary ---
Author Organization [facility] Address [address] [place] [address] Phone Care Team Providers Care Supervisor Cemetery Workers Name Role Phone Felisha Yu MD Primary Care Provider [phone] Jose Allan MD Primary Care Provider [phone] Provider, None Primary Care Provider Unavailabl e Encounter Details Date Type Department Care Team (Late st Contact Info) Description 09/20/2021 Lab Requisition [facility] Laboratory Services [address] [place] [address] Medhat Briggs MD [address] [place] [address] [address] [place] [address] Encounter for screening for COVID-19 Social History [...] Associated Diagnosis Comments SARS-COV-2 BY MOLECULAR Routine 09/20/2021 7:35 AM CDT Encounter for screening for COVID-19 documented in this encounter Results * SARS-COV-2 BY MOLECULAR (09/20/2021 7:35 AM CDT) SARSCOV2 NOT DETECTED (Referen ce Range for this test is Not Detected ) [facility] THERMOFISHER FAST DX 09/21/2021 10:26 AM CDT [facility] Comment:This test was perfor med by a RT-PCR method. Other No Phlebotomy Charged / Unknown 09/20/2021 7:35 AM CDT 09/20/2021 12:30 PM CDT Narrative [facility] - 09/21/2021 10:26 AM CDT Authorized Fact Sheets about this test for providers and patients are available at: https://www.fda.gov/medical-devices/bisrlxteg-lldfzuablg-mkpvxdt-devices/emergen -us e-authorizations us Medhat Briggs MD MICROBIOLOGY - GENERAL ORDERAB LES Final Result [facility] [address] [place] [address], documented in this encounter Visit Diagnoses Diagnosis Encounter for screening for COVID-19 documented in this encounter Additional Health Concerns Infection Onset Date Last Indicated Resolved Time COVID - 19 07/19/2021 10/18/2021 10/28/2021 12:1 6 AM CDT COVID - 19 11/01/2021 02/28/2022 03/10/2022 12:1 6 AM GOLF COURSE RANGER COVID - 19 04/25/2022 07/04/2022 07/14/2022 12:1 6 AM CDT documented as of this encounter Care Teams Supervisor Cemetery Workers Relationship Specialty Start Date End Date Felisha Yu MD PCP - General Family Medicine 07/20/15 04/21/22 Jose Allan MD PCP - General Family Medicine 04/22/22 07/14/23 Provider, None [place] PCP - General 03/08/24 documented as of this encounter
== END 2024-05-13 09:05 | disposition home or self-care (01) ==
LOC: ANHBWCAUD 09:06
PROVIDERS: Visit Provider Family Medicine
DX: H91.3 Deaf nonspeaking, not elsewhere classified (principal)
CPT/HCPCS: 92557; 92567